=== PATIENT | male | born 1965 | race Caucasian/White ===

== ENCOUNTER 2018-12-30 08:18 | Inpatient (IN) | payer BC, OTHER ==
[2018-12-27 08:24] VITALS: BMI 21.5
[~2018-12-30 08:18] MED LIST: LIDOCAINE 1% 20 ML VIAL (10MG/ML) FOR IV START INTRADERMA PRN
[2018-12-30] MEDS ORDERED: LIDOCAINE 1% INJ 10MG/ML (20 ML MDV) ONE ×2 (08:47→10:46)
[2018-12-30] MEDS ORDERED: PROPOFOL 10 MG/ML 20 ML VIAL IV ONE (08:47)
[2018-12-30] MEDS ORDERED: GLUCAGON 1 MG/ML VIAL ONE (08:47)
[2018-12-30] MEDS ORDERED: fentaNYL (PF) 50 MCG/ML 2 ML AMP ONE ×2 (08:47→10:46)
--- NOTE | 2018-12-30 08:55 | P.GSHP ---
History of Present Illness H&P Date: 12/30/18 Chief Complaint: Screening colonoscopy This is a 53-year-old male referred from Dr. Kimberley Vieira. Patient is today for screening colonoscopy. He's never had a colonoscopy before. Past Medical History Past Medical History: Hyperlipidemia Additional Past Medical History / Comment(s): seizure with a fever as , History of Any Multi-Drug Resistant Organisms: None Reported Past Surgical History: Hernia Repair Additional Past Surgical History / Comment(s): fatty "tissue" removed from buttock, colonoscopy Past Anesthesia/Blood Transfusion Reactions: No Reported Reaction Smoking Status: Current every day smoker - Past Family History Father Family Medical History: Cancer Medications and Allergies Home Medications Medication Instructions Recorded Confirmed Type Aspirin [Adult Low Dose Aspirin EC] 81 mg PO DAILY 12/27/18 12/27/18 History Atorvastatin [Lipitor] 20 mg PO WEFR 12/27/18 12/30/18 History Cholecalciferol [Vitamin D3] 2,000 unit PO DAILY 12/27/18 12/30/18 History Ezetimibe [Zetia] 10 mg PO 1400 12/27/18 12/30/18 History Glucosam/Trav-Msm1/C/Zurdo/Bosw 1 each PO DAILY 12/27/18 12/30/18 History [Glucosamine-Chondroitin Tablet] Multivitamins, Thera [Multivitamin 1 tab PO DAILY 12/27/18 12/27/18 History (formulary)] Turmeric Root Extract [Turmeric] 500 mg PO DAILY 12/27/18 12/30/18 History Ubidecarenone [Co Q-10] 200 mg PO DAILY 12/27/18 12/30/18 History Allergies Allergy/AdvReac Type Severity Reaction Status Date / Time No Known Allergies Allergy Verified 12/27/18 08:12 Surgical - Exam Vital Signs Temp Pulse Resp BP Pulse Ox 100.6 F H 102 H 16 122/74 94 L 12/30/18 08:39 12/30/18 08:39 12/30/18 08:39 12/30/18 08:39 12/30/18 08:39 - General well developed, well nourished, no distress - Eyes PERRL - ENT normal pinna - Neck no masses - Respiratory normal expansion - Cardiovascular Rhythm: regular - Abdomen Abdomen: soft, non tender Assessment and Plan Assessment: We'll perform screening colonoscopy.
--- NOTE | 2018-12-30 09:11 | P.OP ---
Date of Procedure: 12/30/18 Preoperative Diagnosis: Screening colonoscopy Postoperative Diagnosis: Colonic perforation Procedure(s) Performed: Colonoscopy Anesthesia: MAC Surgeon: Yon Laguna Pathology: none sent Condition: stable Disposition: PACU Description of Procedure: The patient's placed on the endoscopy table in the lateral position. He received IV sedation. Digital rectal exam was performed which revealed no abnormalities. The prostate was symmetric without nodules. The flexible colonoscope was then placed patient anus and passed throughout the colon. In the scope was advanced through the sigmoid colon. There was some spasm of the sigmoid colon. Glucagon was given. The scope was then advanced. There was a peculiar appearance on the visual examination which appeared to be intramural fat. At this point the scope was withdrawn. There is evidence of a sigmoid colon perforation. Scope was then withdrawn for patient. Patient was prepped for diagnostic laparoscopy possible laparotomy and repair of sigmoid colon.
[2018-12-30] MEDS ORDERED: HEPARIN SODIUM,PORCINE 5,000 UNIT/ML 1 ML VIAL SQ STA (09:26)
[2018-12-30] MEDS: LACTATED RINGERS 1,000 ML IV SCH ×2 (09:33→10:46)
[2018-12-30] MEDS ORDERED: ONDANSETRON 4 MG/2 ML VIAL IVP ONE (09:46)
[2018-12-30] MEDS ORDERED: DEXAMETHASONE SOD PHOSPHATE 10 MG/ML 1 ML VIAL IV ONE (09:46)
[2018-12-30] MEDS ORDERED: HYDROmorphone 1 MG/ML 1 ML SYRINGE IVP ONE (09:56)
[2018-12-30] MEDS: ceFAZolin IN SWFI 2 GM/20 ML SYRINGE IVP ONE ×2 (09:56→14:04)
[2018-12-30 10:09] LABS: Basophils % (A) 0 %; Eosinophils # (A) 0.1 k/uL (0-0.7); Eosinophils % (A) 1 %; HCT 45.3 % (39.0-53.0); HGB 14.9 gm/dL (13.0-17.5); Lymphocytes # (A) 0.7 k/uL (1.0-4.8); Lymphocytes % (A) 9 %; MCH 32.2 pg (25.0-35.0); MCHC 32.9 g/dL (31.0-37.0); MCV 97.7 fL (80.0-100.0); Monocytes # (A) 0.4 k/uL (0-1.0); Monocytes % (A) 6 %; Neutrophils # (A) 6.2 k/uL (1.3-7.7); Neutrophils % (A) 83 %; Platelet Count 200 k/uL (150-450); RBC 4.63 m/uL (4.30-5.90); RDW 12.6 % (11.5-15.5); WBC 7.5 k/uL (3.8-10.6)
[2018-12-30 10:16] LABS: Albumin 3.5 g/dL (3.5-5.0); Calcium 8.8 mg/dL (8.4-10.2); Potassium 4.3 mmol/L (3.5-5.1); Total Bilirubin 0.4 mg/dL (0.2-1.3); Total Protein 6.4 g/dL (6.3-8.2)
[2018-12-30] MEDS: MIDAZOLAM 2 MG/2 ML VIAL IVP ONE ×2 (10:30→10:34)
[2018-12-30] MEDS ORDERED: NEOSTIGMINE 1 MG/ML 10 ML VIAL ONE (10:46)
[2018-12-30] MEDS ORDERED: KETOROLAC 30 MG/ML 1 ML VIAL ONE (10:46)
[2018-12-30] MEDS ORDERED: GLYCOPYRROLATE 0.2 MG/ML 2 ML VIAL ONE (10:46)
[2018-12-30] MEDS ORDERED: SUCCINYLCHOLINE CHLORIDE 100 MG/5 ML SYR IV ONE (10:46)
[2018-12-30] MEDS ORDERED: ROCURONIUM BROMIDE 10 MG/ML 10 ML VIAL IV ONE (10:46)
[2018-12-30] MEDS ORDERED: LACTATED RINGERS 1,000 ML IV ONE ×3 (10:51→12:51)
[2018-12-30] MEDS ORDERED: CLINDAMYCIN 150 MG/ML 4 ML VIAL IVPB ONE (11:24)
[2018-12-30] MEDS ORDERED: ONDANSETRON 4 MG/2 ML VIAL IVP PRN (12:07)
[2018-12-30] MEDS ORDERED: NALOXONE 0.4 MG/ML 1 ML VIAL IV PRN (12:07)
--- NOTE | 2018-12-30 12:07 | P.OP ---
Date of Procedure: 12/30/18 Preoperative Diagnosis: Colon perforation Postoperative Diagnosis: Sigmoid colon perforation Procedure(s) Performed: Laparoscopic colorrhaphy Anesthesia: CODIE Surgeon: Yon Laguna Estimated Blood Loss (ml): 5 Pathology: none sent Condition: stable Disposition: PACU Indications for Procedure: This a 53-year-old male who underwent screening colonoscopy the same. Patient was noted to have a colon perforation on colonoscopy. Description of Procedure: The patient's placed on the operative table in the supine position. He received IV and then general anesthesia. His abdomen was prepped and draped usual sterile fashion. The skin incision sites were anesthetized 1% local Xylocaine. Using a 15 blade the skin was incised at the umbilicus and then using a [place] the fascia was grasped and then the Veress needles placed into the peritoneal cavity. Position of the Veress needle was confirmed with positive drop test. The abdomen was then insufflated. Next a 5 mm trochars placed into the perineal cavity. The abdomen was insufflated and then the laparoscope was placed in the pleural cavity. The patient's placed in Trendelenburg position. The sigmoid colon was visualized. There were adhesions to the sigmoid colon on the lateral abdominal wall. At this area there is noted to be a colonic perforation. There was no significant spill of enteric contents. At this point a 8 mm trochars placed in the midline suprapubic position and then a another 5 mm trocar was placed in the right upper quadrant. The colon was repaired using 2-0 Ethibond suture and the tied knot device. Once the floor of the was performed. Omentum was placed over top of the repair and secured with 2-0 Ethibond suture. The abdomen was irrigated with 2 L of normal saline. There was no significant spill of enteric contents. The trochars withdrawn. The skin was closed with interrupted 3-0 Monocryl suture. Dermabond was applied. Patient sent to recovery in stable condition.
[2018-12-30 12:39] LABS: Amorphous Sediment,Urine Few /hpf; Appearance,Urine Turbid (Clear); Bilirubin,Urine Negative (Negative); Blood,Urine Negative (Negative); Color,Urine Yellow; Glucose,Urine (UA) Negative (Negative); Ketones,Urine 1+ (Negative); Leukocyte Esterase,Urine Negative (Negative); Mucus,Urine Few /hpf; Nitrite,Urine Negative (Negative); PH, Urine 5.5 (5.0-8.0); Protein,Urine 1+ (Negative); RBC,Urine 5 /hpf (0-5); Specific Gravity,Urine 1.028 (1.001-1.035); Squamous Epithelial Cell,Urine 1 /hpf (0-4); Urobilinogen,Urine <2.0 mg/dL (<2.0)
[2018-12-30] MEDS ORDERED: ACETAMINOPHEN IV (For NPO) 1,000 MG in EMPTY BAG 1 BAG IVPB ONE (13:30)
[2018-12-30] MEDS: LACTATED RINGERS 1,000 ML IV ONE (14:43)
[2018-12-30] MEDS: KETOROLAC 30 MG/ML 1 ML VIAL IVP SCH ×2 (15:00→18:11)
--- NOTE | 2018-12-30 15:43 | P.CONS ---
History of Present Illness - Reason for Consult Consult date: 12/30/18 medical management Requesting physician: Yon Laguna - History of Present Illness This is a 53-year-old male patient of Dr. Vieira. Patient presented the same for an elective screening colonoscopy with Dr. Laguna. patient was noted to have perforated colon on colonoscopy. Patient was then taken for laparotomy repair of colon perforation with Dr. Laguna. patient does have a past medical history of hyperlipidemia and current smoker. Patient does report he's had low-grade fevers for the past couple days. Patient denies any other symptoms. Patient does have cough which he reports that his chronic. patient did come back positive for influenza A. patient's heart rate also tachycardic low 100s. Patient ordered for cardiac telemetry monitoring. EKG ordered. Patient currently maintained on Zosyn for IV antibiotics. Dr. Uribe has been consulted for infectious disease.at this time abdomen is soft incision clean dry and intact. Patient denies chest pain or shortness breath. Patient denies nausea vomiting or diarrhea. Patient denies any urinary burning or frequency. Review of Systems please refer to HPI otherwise unremarkable Past Medical History Past Medical History: Hyperlipidemia Additional Past Medical History / Comment(s): seizure with a fever as , History of Any Multi-Drug Resistant Organisms: None Reported Past Surgical History: Hernia Repair Additional Past Surgical History / Comment(s): fatty "tissue" removed from buttock, colonoscopy Past Anesthesia/Blood Transfusion Reactions: No Reported Reaction Smoking Status: Current every day smoker - Past Family History Father Family Medical History: Cancer Medications and Allergies Home Medications Medication Instructions Recorded Confirmed Type Aspirin [Adult Low Dose Aspirin EC] 81 mg PO DAILY 12/27/18 12/27/18 History Atorvastatin [Lipitor] 20 mg PO WEFR 12/27/18 12/30/18 History Cholecalciferol [Vitamin D3] 2,000 unit PO DAILY 12/27/18 12/30/18 History Ezetimibe [Zetia] 10 mg PO 1400 12/27/18 12/30/18 History Glucosam/Trav-Msm1/C/Zurdo/Bosw 1 each PO DAILY 12/27/18 12/30/18 History [Glucosamine-Chondroitin Tablet] Multivitamins, Thera [Multivitamin 1 tab PO DAILY 12/27/18 12/27/18 History (formulary)] Turmeric Root Extract [Turmeric] 500 mg PO DAILY 12/27/18 12/30/18 History Ubidecarenone [Co Q-10] 200 mg PO DAILY 12/27/18 12/30/18 History Allergies Allergy/AdvReac Type Severity Reaction Status Date / Time No Known Allergies Allergy Verified 12/27/18 08:12 Physical Exam Vitals: Vital Signs Temp Pulse Resp BP Pulse Ox 12/30/18 13:00 105 H 18 101/59 92 L 12/30/18 12:45 107 H 18 103/62 92 L 12/30/18 12:30 113 H 14 95/55 92 L 12/30/18 12:15 111 H 14 156/67 98 12/30/18 12:11 100.1 F H 138 H 16 185/95 93 L 12/30/18 10:05 89 16 104/67 97 12/30/18 09:55 100.4 F H 92 16 95/62 93 L 12/30/18 09:30 71 18 105/68 94 L 12/30/18 09:14 76 16 102/65 97 12/30/18 08:39 100.6 F H 102 H 16 122/74 94 L Intake and Output 12/30/18 12/30/18 12/30/18 06:59 14:59 22:59 Intake Total 2100 Output Total 128 Balance 1972 Intake: IV 2100 Output: Urine 125 Estimated Blood Loss 3 Head normocephalic Neck supple Lungs diminished bilaterally Heart regular rate and rhythm S1-S2, no rub or gallop Abdomen is soft nontender nondistended. hypoactive bowel sounds. Incisions clean during intact Extremities no edema Neuro alert and orientated to 3 Results CBC & Chem 7: 12/30/18 09:47 12/30/18 09:47 Labs: Abnormal Lab Results - Last 24 Hours (Table) 12/30/18 12/30/18 12/30/18 Range/Units 09:47 09:47 12:06 Lymphocytes # 0.7 L (1.0-4.8) k/uL Creatinine 1.31 H (0.66-1.25) mg/dL Glucose 123 H (74-99) mg/dL Urine Protein 1+ H (Negative) Urine Ketones 1+ H (Negative) Amorphous Sediment Few H (None) /hpf Urine Mucus Few H (None) /hpf Influenza Type A RNA (Not Detectd) 12/30/18 Range/Units 14:55 Lymphocytes # (1.0-4.8) k/uL Creatinine (0.66-1.25) mg/dL Glucose (74-99) mg/dL Urine Protein (Negative) Urine Ketones (Negative) Amorphous Sediment (None) /hpf Urine Mucus (None) /hpf Influenza Type A RNA Detected H (Not Detectd) Assessment and Plan Assessment: 1. Status post laparoscopic colon perforation post colonoscopy with Dr. Laguna. Patient is currently nothing by mouth. 2. Influenza a. Infectious disease has been consulted. Chest x-ray has been ordered to rule out pneumonia patient has been febrile. Patient currently on Zosyn 3. Nicotine dependence. patient educated greater than 3 minutes cessation 4. History of hyperlipidemia. home medications resumed GI prophylaxis Pepcid. DVT prophylaxis Lovenox Thank you for this consultation we'll continue to follow patient closely throughout stay Time with Patient: Greater than 30 (Greater than 60% of the total time spent in counseling and coordination of care. I performed an examination of the patient and discussed their management with the Nurse Practitioner. I have reviewed the Nurse Practitioner's notes and agree with the documented findings and plan of care)
[2018-12-30] MEDS: PIPERACILLIN-TAZOBACTAM 3.375 GM in SODIUM CHLORIDE 0.9% 100 ML IVPB SCH (18:11)
--- NOTE | 2018-12-30 18:57 | XR ---
EXAMINATION TYPE: XR chest 2V DATE OF EXAM: 12/30/2018 COMPARISON: NONE HISTORY: Cough TECHNIQUE: Frontal and lateral views of the chest are obtained. FINDINGS: Heart and mediastinum are normal. There is coarsening of the lung markings. There is small pneumoperitoneum. There is no pleural effusion. There is some linear density in the lower lung field s. IMPRESSION: Interstitial pulmonary infiltrates and atelectasis. No heart failure. Normal heart. There is pneumoperitoneum. This patient apparently had abdominal surgery today to account for this.
[2018-12-30] MEDS ORDERED: LACTATED RINGERS 1,000 ML IV SCH (20:00)
[2018-12-30] MEDS: OSELTAMIVIR 75 MG CAP PO SCH (20:51)
[2018-12-30] MEDS: FAMOTIDINE 20 MG TAB PO SCH (20:51)
[2018-12-30] MEDS: DOCUSATE 100 MG CAP PO SCH (20:51)
[2018-12-31] MEDS: PIPERACILLIN-TAZOBACTAM 3.375 GM in SODIUM CHLORIDE 0.9% 100 ML IVPB SCH ×4 (00:13→23:12)
[2018-12-31] MEDS: KETOROLAC 30 MG/ML 1 ML VIAL IVP SCH ×5 (00:13→23:12)
[2018-12-31] MEDS: ACETAMINOPHEN TAB 325 MG TAB PO PRN (05:37)
--- NOTE | 2018-12-31 06:53 | CONS ---
CONSULTATION DATE OF SERVICE: 12/30/2018 REASON FOR CONSULTATION: Fever and colonic perforation. HISTORY OF PRESENT ILLNESS: The patient is a 53-year-old male presenting to the ER for elective screening colonoscopy. The patient did have semi perf. Subsequently the patient was taken to the OR and the patient did have a laparoscopic colorrhaphy done by Dr. Laguna. The patient subsequently has been admitted to the hospital. Infectious Disease was consulted for patient having a fever and colon perforation. The patient has mentioned that he did have a fever over the weekend and has been running a fever 100 to 101 degrees Fahrenheit. The patient has been complaining of some sore throat and runny nose. He did have some cough, which is mild to moderate, denies not bringing up any sputum. The patient denies having any chest pain, shortness of breath though. The patient is currently having abdominal pain, more of a dull aching lower abdominal intensity 3 to 4 out of 10, and no radiation. No nausea, no vomiting. Has not passed any gas. The patient has been started on Zosyn and admitted to the hospital. Infectious Disease was consulted for further recommendation regarding antibiotic therapy. REVIEW OF SYSTEMS: CONSTITUTIONAL: Positive for weakness along with the fever. EYES: No complaint. ENT: As per HPI. RESPIRATORY: As per HPI. CARDIOVASCULAR: No complaint. GENITOURINARY: No complaint. GASTROINTESTINAL: As per HPI. MUSCULOSKELETAL: No complaint. INTEGUMENTARY: No complaint. PSYCHOLOGICAL: No complaint. ENDOCRINE: No complaint. NEUROLOGIC: No complaint. PAST MEDICAL HISTORY: Hyperlipidemia, febrile seizure as an . PAST SURGICAL HISTORY: Hernia repair and fatty tissue removed from buttock, colonoscopy. SOCIAL HISTORY: The patient is currently an every day smoker, smokes about a pack a day. Denies drinking or drug use. FAMILY HISTORY: Father history of cancer. ALLERGIES: No known drug allergies. MEDICATIONS: Medications include the patient is currently on Tylenol, [place], Lipitor, Colace, Lovenox, Zetia, Pepcid, Dilaudid, Toradol, lactated Ringer, Reglan, Narcan, nicotine patch, Zofran, Tamiflu, and Zosyn 3.375 grams q.8 hours. PHYSICAL EXAMINATION: On examination, blood pressure is 101/59 with a pulse of 105, temperature of 98.9, T- max 100.5. He is 92% on 2 L nasal cannula. General description is a middle-aged male lying in bed in no distress. No tachypnea or accessory muscle of respiration use. HEENT EXAMINATION: No pallor or scleral icterus. Oral mucous membrane is dry. No pharyngeal erythema or thrush. NECK: Trachea central. No thyromegaly. LUNGS: Unlabored breathing, some coarse breath sounds in the bases. No wheeze. HEART: S1, S2. Tachycardia. ABDOMEN: Soft, slightly tender. No guarding. No rigidity. No organomegaly. EXTREMITIES: No edema of feet. SKIN EXAMINATION: No rash or mass palpable. NEUROLOGICAL: Patient is awake, alert, oriented x3. Mood and affect normal. LABS: Hemoglobin is 14.9 with white count 7.5. BUN of 12, creatinine 1.31. Electrolytes are normal. Liver enzymes are normal. UA has been negative. Influenza A PCR came back positive. The patient did have a chest x-ray completed, which did show interstitial pulmonary infiltrates and atelectasis. No heart failure. DIAGNOSTIC IMPRESSION AND PLAN: 1. Patient with a fever and this patient's fever has been going on since the weekend with symptom likely secondary acute influenza as well as component of pneumonia possible community acquired. 2. Patient who did have a colon perforation with concern for possible secondary peritonitis likely gram negative both aerobes and anaerobes. PLAN: 1. We will try to obtain sputum for Gram stain, culture and sensitivity. 2. Tamiflu 75 mg p.o. twice a day for 5 days. 3. Zosyn 3.375 grams q.8, should cover than pneumonia as well as abdominal pathogen. 4. We will follow on clinical condition and cultures to further adjust medication if needed. Thank you for this consultation. Will follow this patient along with you. MMODL / IJN: [id number] /
[2018-12-31] MEDS: LACTATED RINGERS 1,000 ML IV ONE (08:19)
[2018-12-31] MEDS: NICOTINE 14MG/24HR PATCH TRANSDERM SCH ×2 (08:20→08:22)
[2018-12-31] MEDS: ENOXAPARIN 40 MG/0.4 ML SYRINGE SQ SCH (08:20)
[2018-12-31] MEDS: FAMOTIDINE 20 MG TAB PO SCH ×2 (08:20→20:07)
[2018-12-31] MEDS: DOCUSATE 100 MG CAP PO SCH ×2 (08:20→20:07)
[2018-12-31 08:51] LABS: Basophils % (A) 0 %; Eosinophils % (A) 0 %; HCT 41.6 % (39.0-53.0); HGB 14.3 gm/dL (13.0-17.5); Lymphocytes # (A) 0.7 k/uL (1.0-4.8); Lymphocytes % (A) 7 %; MCH 33.8 pg (25.0-35.0); MCHC 34.5 g/dL (31.0-37.0); MCV 98.2 fL (80.0-100.0); Mean Platelet Volume 7.9; Monocytes # (A) 0.3 k/uL (0-1.0); Monocytes % (A) 2 %; Neutrophils # (A) 10.2 k/uL (1.3-7.7); Neutrophils % (A) 90 %; Platelet Count 144 k/uL (150-450); RBC 4.23 m/uL (4.30-5.90); RDW 13.1 % (11.5-15.5); WBC 11.4 k/uL (3.8-10.6)
[2018-12-31 09:02] LABS: ALT 49 U/L (21-72); AST 54 U/L (17-59); Albumin 2.8 g/dL (3.5-5.0); Alkaline Phosphatase 44 U/L (38-126); Anion Gap 5 mmol/L; Blood Urea Nitrogen 15 mg/dL (9-20); Calcium 8.3 mg/dL (8.4-10.2); Carbon Dioxide 29 mmol/L (22-30); Chloride 104 mmol/L (98-107); Glucose 99 mg/dL (74-99); Potassium 4.3 mmol/L (3.5-5.1); Sodium 138 mmol/L (137-145); Total Bilirubin 0.4 mg/dL (0.2-1.3); Total Protein 5.3 g/dL (6.3-8.2)
--- NOTE | 2018-12-31 09:45 | P.PN ---
Subjective Progress Note Date: 12/31/18 CHIEF COMPLAINT: screening colonoscopy HISTORY OF PRESENT ILLNESS: 53-year-old male who underwent colonoscopy screening on 12/30/2017 with subsequent sigmoid colon perforation. He is status post laparoscopic colorrhaphy. Patient reports his pain is tolerable. Ambulating in his room. Denies passing flatus or BM. Denies nausea or vomiting. WBC 11.4. Hemoglobin 14.3. PHYSICAL EXAM: VITAL SIGNS: Currently stable. GENERAL: Well-developed in no acute distress. HEENT: No sclera icterus. Extraocular movements grossly intact. Moist buccal mucosa. Head is atraumatic, normocephalic. Hears conversational speech. No nasal drainage. NECK: Supple without lymphadenopathy. CHEST: Non-labored respirations and equal bilateral excursions. CARDIOVASCULAR: Regular rate with regular rhythm. Palpable 2+ radial pulses. ABDOMEN: Soft. Nondistended. Surgical sites clean and intact without drainage. MUSCULOSKELETAL: No clubbing, cyanosis or edema. NEUROLOGIC: No focal or lateralizing signs. Cranial nerves II through XII grossly intact. PSYCH: Appropriate affect. Alert and oriented to person, place and time. SKIN: Well perfused. Good skin turgor. ASSESSMENT: 1. Sigmoid colon perforation status post screening colonoscopy 2. S/P laparoscopic colorrhaphy 3. Leukocytosis PLAN: Patient may begin ice chips and popsicles only. ID on consult. Continue antibiotics. Monitor WBC. Increase activity as tolerated. Incentive spirometry. Nurse practitioner note has been reviewed by physician. Signing provider agrees with the documented findings, assessment, and plan of care. Objective - Vital Signs Vital signs: Vital Signs Temp 99.1 F 12/31/18 07:00 Pulse 89 12/31/18 07:00 Resp 16 12/31/18 07:00 BP 96/60 12/31/18 07:00 Pulse Ox 95 12/31/18 07:00 Intake & Output 12/30/18 12/31/18 12/31/18 18:59 06:59 18:59 Intake Total 2100 2740 Output Total 128 300 Balance 1972 2440 Intake: IV 2100 Intake, IV Titration 2500 Amount Lactated Ringers 1,000 ml 1500 @ 150 mls/hr IV .Q6H40M ONE Rx#:[id number] Lactated Ringers 1,000 ml 1000 @ 999 mls/hr IV .Q1H1M KATHY Rx#:[id number] Oral 240 Output: Urine 125 300 Estimated Blood Loss 3 Other: # Voids 200 - Labs CBC & Chem 7: 12/31/18 08:29 12/31/18 08:29 Labs: Abnormal Lab Results - Last 24 Hours (Table) 12/30/18 12/30/18 12/30/18 Range/Units 09:47 09:47 12:06 WBC (3.8-10.6) k/uL RBC (4.30-5.90) m/uL Plt Count (150-450) k/uL Neutrophils # (1.3-7.7) k/uL Lymphocytes # 0.7 L (1.0-4.8) k/uL Creatinine 1.31 H (0.66-1.25) mg/dL Glucose 123 H (74-99) mg/dL Calcium (8.4-10.2) mg/dL Total Protein (6.3-8.2) g/dL Albumin (3.5-5.0) g/dL Urine Protein 1+ H (Negative) Urine Ketones 1+ H (Negative) Amorphous Sediment Few H (None) /hpf Urine Mucus Few H (None) /hpf Influenza Type A RNA (Not Detectd) 12/30/18 12/31/18 12/31/18 Range/Units 14:55 08:29 08:29 WBC 11.4 H (3.8-10.6) k/uL RBC 4.23 L (4.30-5.90) m/uL Plt Count 144 L (150-450) k/uL Neutrophils # 10.2 H (1.3-7.7) k/uL Lymphocytes # 0.7 L (1.0-4.8) k/uL Creatinine (0.66-1.25) mg/dL Glucose (74-99) mg/dL Calcium 8.3 L (8.4-10.2) mg/dL Total Protein 5.3 L (6.3-8.2) g/dL Albumin 2.8 L (3.5-5.0) g/dL Urine Protein (Negative) Urine Ketones (Negative) Amorphous Sediment (None) /hpf Urine Mucus (None) /hpf Influenza Type A RNA Detected H (Not Detectd) Microbiology - Last 24 Hours (Table) 02/25/19 12:06 Urine Culture - Preliminary Urine,Catheterized
[2018-12-31] MEDS: OSELTAMIVIR 75 MG CAP PO SCH ×2 (10:53→20:07)
[2018-12-31] MEDS: SODIUM CHLORIDE 0.9% 1,000 ML IV SCH (10:55)
--- NOTE | 2018-12-31 13:39 | P.PN ---
Subjective Progress Note Date: 12/31/18 This is a 53-year-old male patient of Dr. Vieira. Patient presented the same for an elective screening colonoscopy with Dr. Laguna. patient was noted to have perforated colon on colonoscopy. Patient was then taken for laparotomy repair of colon perforation with Dr. Laguna. patient does have a past medical history of hyperlipidemia and current smoker. Patient does report he's had low-grade fevers for the past couple days. Patient denies any other symptoms. Patient does have cough which he reports that his chronic. patient did come back positive for influenza A. patient's heart rate also tachycardic low 100s. Patient ordered for cardiac telemetry monitoring. EKG ordered. Patient currently maintained on Zosyn for IV antibiotics. Dr. Uribe has been consulted for infectious disease.at this time abdomen is soft incision clean dry and intact. Patient denies chest pain or shortness breath. Patient denies nausea vomiting or diarrhea. Patient denies any urinary burning or frequency. On 12/31/2018 patient is alert and oriented 3 sitting up on the couch. Patient was positive for influenza A. started on Tamiflu infectious disease is following. Patient still having temps 101 this a.m. Patient did have loose bowel movement this a.m. Patient to be started on ice chips, popsicles and medication. This time patient denies chest pain or shortness breath. Patient denies nausea vomiting or diarrhea. Patient denies any urinary burning or frequency Objective - Vital Signs Vital signs: Vital Signs Temp 99.1 F 12/31/18 07:00 Pulse 89 12/31/18 07:00 Resp 16 12/31/18 07:00 BP 96/60 12/31/18 07:00 Pulse Ox 95 12/31/18 07:00 Intake & Output 12/30/18 12/31/18 12/31/18 18:59 06:59 18:59 Intake Total 2100 2740 Output Total 128 300 Balance 1972 2440 Intake: IV 2100 Intake, IV Titration 2500 Amount Lactated Ringers 1,000 ml 1500 @ 150 mls/hr IV .Q6H40M ONE Rx#:[id number] Lactated Ringers 1,000 ml 1000 @ 999 mls/hr IV .Q1H1M KATHY Rx#:[id number] Oral 240 Output: Urine 125 300 Estimated Blood Loss 3 Other: # Voids 200 - Exam Head normocephalic Neck supple Lungs diminished bilaterally Heart regular rate and rhythm S1-S2, no rub or gallop Abdomen is soft nontender nondistended. hypoactive bowel sounds. Incisions clean during intact Extremities no edema Neuro alert and orientated to 3 - Labs CBC & Chem 7: 12/31/18 08:29 12/31/18 08:29 Labs: Abnormal Lab Results - Last 24 Hours (Table) 12/30/18 12/31/18 12/31/18 Range/Units 14:55 08:29 08:29 WBC 11.4 H (3.8-10.6) k/uL RBC 4.23 L (4.30-5.90) m/uL Plt Count 144 L (150-450) k/uL Neutrophils # 10.2 H (1.3-7.7) k/uL Lymphocytes # 0.7 L (1.0-4.8) k/uL Calcium 8.3 L (8.4-10.2) mg/dL Total Protein 5.3 L (6.3-8.2) g/dL Albumin 2.8 L (3.5-5.0) g/dL Influenza Type A RNA Detected H (Not Detectd) Microbiology - Last 24 Hours (Table) 12/30/18 12:06 Urine Culture - Preliminary Urine,Catheterized Assessment and Plan Assessment: 1. Status post laparoscopic colon perforation post colonoscopy with Dr. Laguna. Patient is currently nothing by mouth. 2. Influenza a. Infectious disease has been consulted. Chest x-ray has been ordered to rule out pneumonia patient has been febrile. Patient currently on Zosyn 3. Nicotine dependence. patient educated greater than 3 minutes cessation 4. History of hyperlipidemia. home medications resumed 5. Influenza A possible pneumonia. Patient currently on Zosyn. Started on Tamiflu. Infectious disease following. sputum culture ordered 6. Tachycardic. EKG has been ordered. Patient also ordered for cardiac monitoring and telemetry. 7. Acute kidney injury. Creatinine elevated at 1.31 we'll continue to monitor. Abdomen improving to 1.05 GI prophylaxis Pepcid. DVT prophylaxis Lovenox Thank you for this consultation we'll continue to follow patient closely throughout stay
[2018-12-31] MEDS: EZETIMIBE 10 MG TAB PO SCH (15:28)
[2019-01-01] MEDS: SODIUM CHLORIDE 0.9% 1,000 ML IV SCH (00:08)
[2019-01-01] MEDS: LACTATED RINGERS 1,000 ML IV SCH (03:45)
--- NOTE | 2019-01-01 05:08 | PN ---
PROGRESS NOTE DATE OF SERVICE: 12/31/2018 REASON FOR FOLLOWUP: 1. Acute influenza. 2. Possible pneumonia. 3. Secondary peritonitis. INTERVAL HISTORY: The patient did spike a fever last night of 100.8 degrees to 101 degrees Fahrenheit this morning. The patient is afebrile since then. The patient is breathing comfortably. Denies having any significant chest pain or shortness of breath. He did have some cough. Abdominal pain slightly decreased intensity. No nausea, no vomiting and did have bowel movement. PHYSICAL EXAMINATION: On examination, blood pressure 108/71 with a pulse of 87, temperature 98.1. He is 92% on 2 L nasal cannula. General description is a middle aged male up in the chair in no distress. RESPIRATORY SYSTEM: Unlabored breathing with decreased breath sounds at bases. No wheeze. HEART: S1, S2. Regular rate and rhythm. ABDOMEN: Soft, no tenderness. No guarding or rigidity. EXTREMITIES: No edema of the feet. LABS: Hemoglobin is 14.3 with white count 11.4, BUN of 15, creatinine 1.05. DIAGNOSTIC IMPRESSION AND PLAN: Patient with fever which is likely multifactorial in this patient who did have acute influenza versus possible bacterial pneumonia and secondary peritonitis from a perforated colon. Status post surgical repair of the same. The patient is currently covered with Tamiflu and Zosyn that will be continued for now. Will try to obtain a sputum to narrow antibiotics. Continue supportive care. MMODL / MOUNIKAN: [id number] /
[2019-01-01] MEDS: KETOROLAC 30 MG/ML 1 ML VIAL IVP SCH (05:32)
[2019-01-01 08:58] LABS: Basophils % (A) 0 %; Eosinophils % (A) 0 %; HCT 40.6 % (39.0-53.0); HGB 12.9 gm/dL (13.0-17.5); Lymphocytes # (A) 0.8 k/uL (1.0-4.8); Lymphocytes % (A) 8 %; MCH 31.7 pg (25.0-35.0); MCHC 31.8 g/dL (31.0-37.0); MCV 99.6 fL (80.0-100.0); Mean Platelet Volume 7.4; Monocytes # (A) 0.2 k/uL (0-1.0); Monocytes % (A) 2 %; Neutrophils # (A) 8.1 k/uL (1.3-7.7); Neutrophils % (A) 89 %; Platelet Count 150 k/uL (150-450); RBC 4.08 m/uL (4.30-5.90); RDW 12.8 % (11.5-15.5); WBC 9.1 k/uL (3.8-10.6)
[2019-01-01] MEDS: PIPERACILLIN-TAZOBACTAM 3.375 GM in SODIUM CHLORIDE 0.9% 100 ML IVPB SCH ×2 (09:08→18:18)
[2019-01-01] MEDS: ENOXAPARIN 40 MG/0.4 ML SYRINGE SQ SCH (09:09)
[2019-01-01] MEDS: DOCUSATE 100 MG CAP PO SCH ×2 (09:09→20:35)
[2019-01-01] MEDS: FAMOTIDINE 20 MG TAB PO SCH ×2 (09:09→20:27)
[2019-01-01] MEDS: NICOTINE 14MG/24HR PATCH TRANSDERM SCH (09:09)
[2019-01-01] MEDS: OSELTAMIVIR 75 MG CAP PO SCH ×2 (09:10→20:35)
[2019-01-01 09:33] LABS: Anion Gap 4 mmol/L; Blood Urea Nitrogen 14 mg/dL (9-20); Calcium 8.3 mg/dL (8.4-10.2); Carbon Dioxide 28 mmol/L (22-30); Chloride 107 mmol/L (98-107); Glucose 78 mg/dL (74-99); Potassium 4.2 mmol/L (3.5-5.1); Sodium 139 mmol/L (137-145)
--- NOTE | 2019-01-01 10:20 | P.PN ---
Subjective Progress Note Date: 01/01/19 CHIEF COMPLAINT: screening colonoscopy HISTORY OF PRESENT ILLNESS: 53-year-old male who underwent colonoscopy screening on 12/30/2017 with subsequent sigmoid colon perforation. He is status post laparoscopic colorrhaphy. Patient reports abdominal pain this morning near surgical sites. He is passing flatus and having BMs. He is tolerating ice chips and popsicles. Using incentive spirometry. Ambulating independently in his room. WBC 9.1 PHYSICAL EXAM: VITAL SIGNS: Currently stable. GENERAL: Well-developed in no acute distress. HEENT: No sclera icterus. Extraocular movements grossly intact. Moist buccal mucosa. Head is atraumatic, normocephalic. Hears conversational speech. No nasal drainage. NECK: Supple without lymphadenopathy. CHEST: Non-labored respirations and equal bilateral excursions. CARDIOVASCULAR: Regular rate with regular rhythm. Palpable 2+ radial pulses. ABDOMEN: Soft. Nondistended. Surgical sites clean and intact without drainage. MUSCULOSKELETAL: No clubbing, cyanosis or edema. NEUROLOGIC: No focal or lateralizing signs. Cranial nerves II through XII grossly intact. PSYCH: Appropriate affect. Alert and oriented to person, place and time. SKIN: Well perfused. Good skin turgor. ASSESSMENT: 1. Sigmoid colon perforation status post screening colonoscopy 2. S/P laparoscopic colorrhaphy 3. Leukocytosis PLAN: Patient may begin clear liquid diet. ID on consult. Continue antibiotics. Monitor WBC. Increase activity as tolerated. Incentive spirometry. Possible discharge home tomorrow. Nurse practitioner note has been reviewed by physician. Signing provider agrees with the documented findings, assessment, and plan of care. Objective - Vital Signs Vital signs: Vital Signs Temp 100.1 F H 01/01/19 05:35 Pulse 103 H 01/01/19 00:15 Resp 17 01/01/19 00:15 BP 131/78 01/01/19 00:15 Pulse Ox 91 L 01/01/19 00:15 Intake & Output 12/31/18 01/01/19 01/01/19 18:59 06:59 18:59 Intake Total 1230 Balance 1230 Intake: Intake, IV Titration 750 Amount Sodium Chloride 0.9% 1, 750 000 ml @ 75 mls/hr IV . [id number] [facility] Rx#:[id number] Oral 480 Other: # Voids 3 3 # Bowel Movements 1 1 - Labs CBC & Chem 7: 01/01/19 08:09 01/01/19 08:09 Labs: Abnormal Lab Results - Last 24 Hours (Table) 01/01/19 01/01/19 Range/Units 08:09 08:09 RBC 4.08 L (4.30-5.90) m/uL Hgb 12.9 L (13.0-17.5) gm/dL Neutrophils # 8.1 H (1.3-7.7) k/uL Lymphocytes # 0.8 L (1.0-4.8) k/uL Calcium 8.3 L (8.4-10.2) mg/dL Microbiology - Last 24 Hours (Table) 12/30/18 12:06 Urine Culture - Final Urine,Catheterized
--- NOTE | 2019-01-01 14:48 | P.PN ---
Subjective Progress Note Date: 01/01/19 This is a 53-year-old male patient of Dr. Vieira. Patient presented the same for an elective screening colonoscopy with Dr. Laguna. patient was noted to have perforated colon on colonoscopy. Patient was then taken for laparotomy repair of colon perforation with Dr. Laguna. patient does have a past medical history of hyperlipidemia and current smoker. Patient does report he's had low-grade fevers for the past couple days. Patient denies any other symptoms. Patient does have cough which he reports that his chronic. patient did come back positive for influenza A. patient's heart rate also tachycardic low 100s. Patient ordered for cardiac telemetry monitoring. EKG ordered. Patient currently maintained on Zosyn for IV antibiotics. Dr. Uribe has been consulted for infectious disease.at this time abdomen is soft incision clean dry and intact. Patient denies chest pain or shortness breath. Patient denies nausea vomiting or diarrhea. Patient denies any urinary burning or frequency. On 12/31/2018 patient is alert and oriented 3 sitting up on the couch. Patient was positive for influenza A. started on Tamiflu infectious disease is following. Patient still having temps 101 this a.m. Patient did have loose bowel movement this a.m. Patient to be started on ice chips, popsicles and medication. This time patient denies chest pain or shortness breath. Patient denies nausea vomiting or diarrhea. Patient denies any urinary burning or frequency On 01/01/2018 patient lying oriented 3. Patient remains on Tamiflu and Zosyn. Patient is on clear liquid diet. Patient has been passing bowel movements. Patient is still having temps of 100.1. Infectious disease is following. Has been patient denies chest pain or shortness breath. Patient denies nausea vomiting or diarrhea. Patient denies any urinary burning or frequency. Patient is complaining of some abdominal discomfort with movement Objective - Vital Signs Vital signs: Vital Signs Temp 97.9 F 01/01/19 14:37 Pulse 77 01/01/19 14:37 Resp 17 01/01/19 00:15 BP 120/73 01/01/19 14:37 Pulse Ox 94 L 01/01/19 14:37 Intake & Output 12/31/18 01/01/19 01/01/19 18:59 06:59 18:59 Intake Total 1230 Balance 1230 Intake: Intake, IV Titration 750 Amount Sodium Chloride 0.9% 1, 750 000 ml @ 75 mls/hr IV . [id number] [facility] Rx#:[id number] Oral 480 Other: # Voids 3 3 # Bowel Movements 1 1 - Exam Head normocephalic Neck supple Lungs diminished bilaterally Heart regular rate and rhythm S1-S2, no rub or gallop Abdomen is soft nontender nondistended. hypoactive bowel sounds. Incisions clean during intact Extremities no edema Neuro alert and orientated to 3 - Labs CBC & Chem 7: 01/01/19 08:09 01/01/19 08:09 Labs: Abnormal Lab Results - Last 24 Hours (Table) 01/01/19 01/01/19 Range/Units 08:09 08:09 RBC 4.08 L (4.30-5.90) m/uL Hgb 12.9 L (13.0-17.5) gm/dL Neutrophils # 8.1 H (1.3-7.7) k/uL Lymphocytes # 0.8 L (1.0-4.8) k/uL Calcium 8.3 L (8.4-10.2) mg/dL Microbiology - Last 24 Hours (Table) 12/30/18 12:06 Urine Culture - Final Urine,Catheterized Assessment and Plan Assessment: 1. Status post laparoscopic colorrhapy post sigmoid colon perforation post colonoscopy with Dr. Laguna. Patient is currently postop day 2. Diet has been advanced to clear liquid diet. 2. Influenza a. Infectious disease has been consulted. Chest x-ray completed showing interstitial pulmonary infiltrates and atelectasis no heart failure. Normal. There is pneumoperitoneum. Patient currently on Zosyn 3. Nicotine dependence. patient educated greater than 3 minutes cessation 4. History of hyperlipidemia. home medications resumed 5. Influenza A possible pneumonia. Patient currently on Zosyn. Started on Tamiflu. Infectious disease following. sputum culture ordered 6. Tachycardic. EKG completed showing normal sinus rhythm and normal EKG Patient also ordered for cardiac monitoring and telemetry. 7. Acute kidney injury. Creatinine elevated at 1.31 we'll continue to monitor. Abdomen improving to 1.05 GI prophylaxis Pepcid. DVT prophylaxis Lovenox Thank you for this consultation we'll continue to follow patient closely throughout stay I performed an examination of the patient and discussed their management with the Nurse Practitioner. I have reviewed the Nurse Practitioner's notes and agree with the documented findings and plan of care
[2019-01-01] MEDS: EZETIMIBE 10 MG TAB PO SCH (18:18)
[2019-01-01] MEDS: ACETAMINOPHEN TAB 325 MG TAB PO PRN (20:27)
[2019-01-01] MEDS: ATORVASTATIN 20 MG TAB PO SCH (20:27)
--- NOTE | 2019-01-01 23:51 | PN ---
PROGRESS NOTE DATE OF SERVICE: 01/01/2019 REASON FOR FOLLOWUP: Acute influenza, possible pneumonia and secondary peritonitis. INTERVAL HISTORY: The patient has fever 100.1 to 100 degrees Fahrenheit with a fever of 101 yesterday. The patient today is breathing comfortably. Denies having any chest pain or shortness of breath. Minimal cough. He is complaining of some lower abdominal pain with no worsening, and did have bowel movement. No nausea. No vomiting. PHYSICAL EXAMINATION: Blood pressure is 111/68 with a pulse of 85, temperature 97.9. He is 95% on room air. General description is a middle-aged male up in the room in no distress. RESPIRATORY SYSTEM: Unlabored breathing with decreased breath sounds at the base. No wheeze. HEART: S1, S2. Regular rate and rhythm. ABDOMEN: Soft. Did have a small bruise in the lower abdominal area but no redness. Incision site looks clean. LABS: Hemoglobin is 12.9, white count 9.1 with BUN of 14, creatinine 1.04. Blood, urine so far negative. DIAGNOSTIC IMPRESSION AND PLAN: Patient with a fever in this patient who did have acute influenza A with a question of possible secondary pneumonia. Plan at this time is to keep the patient on Tamiflu and Zosyn and monitor his clinical course and culture closely. Continue with supportive care. NEALL / MOUNIKAN: [id number] /
[2019-01-02] MEDS: PIPERACILLIN-TAZOBACTAM 3.375 GM in SODIUM CHLORIDE 0.9% 100 ML IVPB SCH ×3 (00:40→16:15)
[2019-01-02] MEDS: LACTATED RINGERS 1,000 ML IV SCH (05:32)
[2019-01-02 08:15] LABS: Basophils % (A) 0 %; Eosinophils # (A) 0.1 k/uL (0-0.7); Eosinophils % (A) 1 %; HCT 40.9 % (39.0-53.0); HGB 13.3 gm/dL (13.0-17.5); Lymphocytes # (A) 0.9 k/uL (1.0-4.8); Lymphocytes % (A) 10 %; MCH 32.2 pg (25.0-35.0); MCHC 32.5 g/dL (31.0-37.0); MCV 99.1 fL (80.0-100.0); Mean Platelet Volume 7.1; Monocytes # (A) 0.2 k/uL (0-1.0); Monocytes % (A) 3 %; Neutrophils # (A) 8.1 k/uL (1.3-7.7); Neutrophils % (A) 86 %; Platelet Count 187 k/uL (150-450); RBC 4.12 m/uL (4.30-5.90); RDW 12.9 % (11.5-15.5); WBC 9.5 k/uL (3.8-10.6)
[2019-01-02 08:39] LABS: Anion Gap 10 mmol/L; Blood Urea Nitrogen 9 mg/dL (9-20); Calcium 8.3 mg/dL (8.4-10.2); Carbon Dioxide 26 mmol/L (22-30); Chloride 102 mmol/L (98-107); Glucose 88 mg/dL (74-99); Potassium 3.6 mmol/L (3.5-5.1); Sodium 138 mmol/L (137-145)
[2019-01-02] MEDS: FAMOTIDINE 20 MG TAB PO SCH ×2 (08:41→20:21)
[2019-01-02] MEDS: DOCUSATE 100 MG CAP PO SCH ×2 (08:41→20:21)
[2019-01-02] MEDS: ENOXAPARIN 40 MG/0.4 ML SYRINGE SQ SCH (08:41)
[2019-01-02] MEDS: HYDROcodone/APAP 5-325MG 1 EACH TAB PO PRN ×2 (08:42→16:20)
[2019-01-02] MEDS: EZETIMIBE 10 MG TAB PO SCH (08:42)
[2019-01-02] MEDS: OSELTAMIVIR 75 MG CAP PO SCH ×2 (08:42→20:21)
[2019-01-02] MEDS: NICOTINE 14MG/24HR PATCH TRANSDERM SCH ×2 (08:42→08:43)
--- NOTE | 2019-01-02 10:25 | P.PN ---
Subjective Progress Note Date: 01/02/19 CHIEF COMPLAINT: screening colonoscopy HISTORY OF PRESENT ILLNESS: 53-year-old male who underwent colonoscopy screening on 12/30/2017 with subsequent sigmoid colon perforation. He is status post laparoscopic colorrhaphy. Patient reports abdominal pain this morning near surgical sites. He is passing flatus and having BMs. Tolerating clear liquid diet. Using incentive spirometry. Ambulating independently in his room. WBC 9.5. Patient febrile overnight with a temperature of 101.5. Temperature this morning 99.6. PHYSICAL EXAM: VITAL SIGNS: Currently stable. GENERAL: Well-developed in no acute distress. HEENT: No sclera icterus. Extraocular movements grossly intact. Moist buccal mucosa. Head is atraumatic, normocephalic. Hears conversational speech. No nasal drainage. NECK: Supple without lymphadenopathy. CHEST: Non-labored respirations and equal bilateral excursions. CARDIOVASCULAR: Regular rate with regular rhythm. Palpable 2+ radial pulses. ABDOMEN: Soft. Nondistended. Surgical sites clean and intact without drainage. MUSCULOSKELETAL: No clubbing, cyanosis or edema. NEUROLOGIC: No focal or lateralizing signs. Cranial nerves II through XII grossly intact. PSYCH: Appropriate affect. Alert and oriented to person, place and time. SKIN: Well perfused. Good skin turgor. ASSESSMENT: 1. Sigmoid colon perforation status post screening colonoscopy 2. S/P laparoscopic colorrhaphy 3. Leukocytosis PLAN: May advance diet to full liquids. ID on consult. Continue antibiotics. Monitor WBC. Increase activity as tolerated. Incentive spirometry. Hold discharge today due to fevers. Nurse practitioner note has been reviewed by physician. Signing provider agrees with the documented findings, assessment, and plan of care. Objective - Vital Signs Vital signs: Vital Signs Temp 99.6 F 01/02/19 07:00 Pulse 84 01/02/19 07:00 Resp 12 01/02/19 08:39 BP 106/67 01/02/19 07:00 Pulse Ox 96 01/02/19 07:00 Intake & Output 01/01/19 01/02/19 01/02/19 18:59 06:59 18:59 Intake Total 200 240 Balance 200 240 Intake: IV 200 Piperacillin-Tazobactam 3 200 .375 gm In Sodium Chloride 0.9% 100 ml @ 25 mls/hr IVPB Q8HR [facility] Rx# :[id number] Oral 240 Other: # Voids 3 - Labs CBC & Chem 7: 01/02/19 07:40 01/02/19 07:40 Labs: Abnormal Lab Results - Last 24 Hours (Table) 01/02/19 01/02/19 Range/Units 07:40 07:40 RBC 4.12 L (4.30-5.90) m/uL Neutrophils # 8.1 H (1.3-7.7) k/uL Lymphocytes # 0.9 L (1.0-4.8) k/uL Calcium 8.3 L (8.4-10.2) mg/dL
--- NOTE | 2019-01-02 11:17 | P.PN ---
Subjective Progress Note Date: 01/02/19 This is a 53-year-old male patient of Dr. Vieira. Patient presented the same for an elective screening colonoscopy with Dr. Laguna. patient was noted to have perforated colon on colonoscopy. Patient was then taken for laparotomy repair of colon perforation with Dr. Laguna. patient does have a past medical history of hyperlipidemia and current smoker. Patient does report he's had low-grade fevers for the past couple days. Patient denies any other symptoms. Patient does have cough which he reports that his chronic. patient did come back positive for influenza A. patient's heart rate also tachycardic low 100s. Patient ordered for cardiac telemetry monitoring. EKG ordered. Patient currently maintained on Zosyn for IV antibiotics. Dr. Uribe has been consulted for infectious disease.at this time abdomen is soft incision clean dry and intact. Patient denies chest pain or shortness breath. Patient denies nausea vomiting or diarrhea. Patient denies any urinary burning or frequency. On 12/31/2018 patient is alert and oriented 3 sitting up on the couch. Patient was positive for influenza A. started on Tamiflu infectious disease is following. Patient still having temps 101 this a.m. Patient did have loose bowel movement this a.m. Patient to be started on ice chips, popsicles and medication. This time patient denies chest pain or shortness breath. Patient denies nausea vomiting or diarrhea. Patient denies any urinary burning or frequency On 01/01/2018 patient lying oriented 3. Patient remains on Tamiflu and Zosyn. Patient is on clear liquid diet. Patient has been passing bowel movements. Patient is still having temps of 100.1. Infectious disease is following. Has been patient denies chest pain or shortness breath. Patient denies nausea vomiting or diarrhea. Patient denies any urinary burning or frequency. Patient is complaining of some abdominal discomfort with movement On 01/02/2018 patient is alert and oriented 3. Patient is still having fevers. Discussed case with surgical services recommending we keep patient will more day. Patient is still having some abdominal discomfort. Currently maintained on clear liquid diet. Patient denies nausea vomiting or diarrhea. Patient denies any urinary burning or frequency. Patient denies chest pain or shortness breath. Patient did have bowel movement this a.m. Objective - Vital Signs Vital signs: Vital Signs Temp 99.6 F 01/02/19 07:00 Pulse 84 01/02/19 07:00 Resp 12 01/02/19 08:39 BP 106/67 01/02/19 07:00 Pulse Ox 96 01/02/19 07:00 Intake & Output 01/01/19 01/02/19 01/02/19 18:59 06:59 18:59 Intake Total 200 240 Balance 200 240 Intake: IV 200 Piperacillin-Tazobactam 3 200 .375 gm In Sodium Chloride 0.9% 100 ml @ 25 mls/hr IVPB Q8HR [facility] Rx# :[id number] Oral 240 Other: # Voids 3 - Exam Head normocephalic Neck supple Lungs diminished bilaterally Heart regular rate and rhythm S1-S2, no rub or gallop Abdomen is soft nontender nondistended. hypoactive bowel sounds. Incisions clean during intact Extremities no edema Neuro alert and orientated to 3 - Labs CBC & Chem 7: 01/02/19 07:40 01/02/19 07:40 Labs: Abnormal Lab Results - Last 24 Hours (Table) 01/02/19 01/02/19 Range/Units 07:40 07:40 RBC 4.12 L (4.30-5.90) m/uL Neutrophils # 8.1 H (1.3-7.7) k/uL Lymphocytes # 0.9 L (1.0-4.8) k/uL Calcium 8.3 L (8.4-10.2) mg/dL Assessment and Plan Assessment: 1. Status post laparoscopic colorrhapy post sigmoid colon perforation post colonoscopy with Dr. Laguna. Patient is currently postop day 2. Diet has been advanced to clear liquid diet. 2. Influenza a. Infectious disease has been consulted. Chest x-ray completed showing interstitial pulmonary infiltrates and atelectasis no heart failure. Normal. There is pneumoperitoneum. Patient currently on Zosyn 3. Nicotine dependence. patient educated greater than 3 minutes cessation 4. History of hyperlipidemia. home medications resumed 5. Influenza A possible pneumonia. Patient currently on Zosyn. Started on Tamiflu. Infectious disease following. sputum culture ordered 6. Tachycardic. EKG completed showing normal sinus rhythm and normal EKG Patient also ordered for cardiac monitoring and telemetry. 7. Acute kidney injury. Creatinine elevated at 1.31 we'll continue to monitor. Abdomen improving to 1.05 GI prophylaxis Pepcid. DVT prophylaxis Lovenox Thank you for this consultation we'll continue to follow patient closely throughout stay I performed an examination of the patient and discussed their management with the Nurse Practitioner. I have reviewed the Nurse Practitioner's notes and agree with the documented findings and plan of care
--- NOTE | 2019-01-02 23:10 | PN ---
PROGRESS NOTE DATE OF SERVICE: 01/02/2019. REASON FOR FOLLOW UP: 1. Acute influenza. 2. Possible pneumonia. 3. Secondary peritonitis. INTERVAL HISTORY: The patient is currently afebrile. Overall fever pattern has improved. The patient denies any chest pain. No shortness of breath or significant cough. Has been complaining of some pain in the right lower abdominal area, though no worsening. He did have some loose stool. No nausea, no vomiting. PHYSICAL EXAMINATION: Blood pressure 104/67 with a pulse of 79, temperature 98.4. He is 95% on room air. General description is a middle-aged male lying in bed in no distress. Respiratory system: Unlabored breathing. Clear to auscultation anteriorly. Heart S1, S2. Regular rate and rhythm. ABDOMEN: Soft. Lower abdominal area did have been bruised, but no redness. SKIN: No edema of the feet. Extremities: No edema of feet. LABS: Hemoglobin 13.1, normal 9.5 with a BUN of 9, creatinine 1.04. DIAGNOSTIC IMPRESSION AND PLAN: Patient with fever with a diagnosis of acute influenza A question of possible secondary bacterial pneumonia. This patient who also has a colonic status post repair and concern possible secondary peritonitis. Patient is currently covered with Zosyn, Tamiflu to continue for now. Monitor his clinical course closely. Continue supportive care. MMODL / IJN: [id number] /
[2019-01-03] MEDS: PIPERACILLIN-TAZOBACTAM 3.375 GM in SODIUM CHLORIDE 0.9% 100 ML IVPB SCH ×3 (00:45→16:47)
[2019-01-03] MEDS: HYDROcodone/APAP 5-325MG 1 EACH TAB PO PRN (00:48)
[2019-01-03] MEDS: LACTATED RINGERS 1,000 ML IV SCH ×2 (05:00→15:18)
[2019-01-03] MEDS: FAMOTIDINE 20 MG TAB PO SCH ×2 (07:40→20:07)
[2019-01-03] MEDS: NICOTINE 14MG/24HR PATCH TRANSDERM SCH (07:40)
[2019-01-03] MEDS: DOCUSATE 100 MG CAP PO SCH ×2 (07:40→20:11)
[2019-01-03] MEDS: ENOXAPARIN 40 MG/0.4 ML SYRINGE SQ SCH (07:40)
[2019-01-03] MEDS: OSELTAMIVIR 75 MG CAP PO SCH ×2 (07:41→20:07)
[2019-01-03 08:39] LABS: Basophils % (A) 0 %; Eosinophils # (A) 0.1 k/uL (0-0.7); Eosinophils % (A) 1 %; HCT 42.1 % (39.0-53.0); HGB 13.8 gm/dL (13.0-17.5); Lymphocytes # (A) 0.9 k/uL (1.0-4.8); Lymphocytes % (A) 9 %; MCH 32.1 pg (25.0-35.0); MCHC 32.8 g/dL (31.0-37.0); Mean Platelet Volume 7.1; Monocytes # (A) 0.5 k/uL (0-1.0); Monocytes % (A) 4 %; Neutrophils # (A) 9.4 k/uL (1.3-7.7); Neutrophils % (A) 86 %; Platelet Count 231 k/uL (150-450); RBC 4.29 m/uL (4.30-5.90)
[2019-01-03 09:00] LABS: Anion Gap 9 mmol/L; Blood Urea Nitrogen 9 mg/dL (9-20); Calcium 8.6 mg/dL (8.4-10.2); Carbon Dioxide 27 mmol/L (22-30); Chloride 102 mmol/L (98-107); Glucose 130 mg/dL (74-99); Potassium 3.7 mmol/L (3.5-5.1); Sodium 138 mmol/L (137-145)
--- NOTE | 2019-01-03 11:26 | P.PN ---
Progress Note - Text Progress Note Date: 01/03/19 The patient states he has had improvement in his abdominal pain. Resting in bed his pain is a 0 out of 10. He has had some pain on ambulation. His scrotum dominants. His white count has crept up to 11.5. On exam is lesser stable. His abdomen soft. There is some mild incisional tenderness. Patient will undergo computed tomography scan the abdomen to give out for possible postoperative abscess.
--- NOTE | 2019-01-03 11:33 | P.PN ---
Subjective Progress Note Date: 01/03/19 This is a 53-year-old male patient of Dr. Vieira. Patient presented the same for an elective screening colonoscopy with Dr. Laguna. patient was noted to have perforated colon on colonoscopy. Patient was then taken for laparotomy repair of colon perforation with Dr. Laguna. patient does have a past medical history of hyperlipidemia and current smoker. Patient does report he's had low-grade fevers for the past couple days. Patient denies any other symptoms. Patient does have cough which he reports that his chronic. patient did come back positive for influenza A. patient's heart rate also tachycardic low 100s. Patient ordered for cardiac telemetry monitoring. EKG ordered. Patient currently maintained on Zosyn for IV antibiotics. Dr. Uribe has been consulted for infectious disease.at this time abdomen is soft incision clean dry and intact. Patient denies chest pain or shortness breath. Patient denies nausea vomiting or diarrhea. Patient denies any urinary burning or frequency. On 12/31/2018 patient is alert and oriented 3 sitting up on the couch. Patient was positive for influenza A. started on Tamiflu infectious disease is following. Patient still having temps 101 this a.m. Patient did have loose bowel movement this a.m. Patient to be started on ice chips, popsicles and medication. This time patient denies chest pain or shortness breath. Patient denies nausea vomiting or diarrhea. Patient denies any urinary burning or frequency On 01/01/2018 patient lying oriented 3. Patient remains on Tamiflu and Zosyn. Patient is on clear liquid diet. Patient has been passing bowel movements. Patient is still having temps of 100.1. Infectious disease is following. Has been patient denies chest pain or shortness breath. Patient denies nausea vomiting or diarrhea. Patient denies any urinary burning or frequency. Patient is complaining of some abdominal discomfort with movement On 01/02/2018 patient is alert and oriented 3. Patient is still having fevers. Discussed case with surgical services recommending we keep patient will more day. Patient is still having some abdominal discomfort. Currently maintained on clear liquid diet. Patient denies nausea vomiting or diarrhea. Patient denies any urinary burning or frequency. Patient denies chest pain or shortness breath. Patient did have bowel movement this a.m. On 01/03/2018 patient is alert and oriented 3. Patient has been having low- grade temps 99.7. Throughout the night. Patient states he feels ready to go home. Patient denies nausea vomiting or diarrhea. Patient is still having some abdominal discomfort. CT of abdomen and pelvis has been ordered per services. Infectious disease is following. Patient remains on Zosyn and Tamiflu. Objective - Vital Signs Vital signs: Vital Signs Temp 98.3 F 01/03/19 07:17 Pulse 92 01/03/19 07:17 Resp 18 01/03/19 07:30 BP 129/79 01/03/19 07:17 Pulse Ox 91 L 01/03/19 07:17 Intake & Output 01/02/19 01/03/19 01/03/19 18:59 06:59 18:59 Intake Total 260 260 Balance 260 260 Intake: IV 100 100 Piperacillin-Tazobactam 3 100 100 .375 gm In Sodium Chloride 0.9% 100 ml @ 25 mls/hr IVPB Q8HR [facility] Rx# :[id number] Intake, IV Titration 160 160 Amount Lactated Ringers 1,000 ml 160 160 @ 20 mls/hr IV .Q24H [facility] Rx#:[id number] Other: # Voids 3 2 - Exam Head normocephalic Neck supple Lungs diminished bilaterally Heart regular rate and rhythm S1-S2, no rub or gallop Abdomen is soft nontender nondistended. hypoactive bowel sounds. Incisions clean during intact Extremities no edema Neuro alert and orientated to 3 - Labs CBC & Chem 7: 01/03/19 07:54 01/03/19 07:54 Labs: Abnormal Lab Results - Last 24 Hours (Table) 01/03/19 01/03/19 Range/Units 07:54 07:54 WBC 11.0 H (3.8-10.6) k/uL RBC 4.29 L (4.30-5.90) m/uL Neutrophils # 9.4 H (1.3-7.7) k/uL Lymphocytes # 0.9 L (1.0-4.8) k/uL Glucose 130 H (74-99) mg/dL Assessment and Plan Assessment: 1. Status post laparoscopic colorrhapy post sigmoid colon perforation post colonoscopy with Dr. Laguna. Patient is currently postop day 3. Diet has been advanced to clear liquid diet. Computed tomography scan of abdomen and pelvis has been ordered to rule out abscess per surgical services 2. Nicotine dependence. patient educated greater than 3 minutes cessation 3. History of hyperlipidemia. home medications resumed 4. Influenza A possible pneumonia. Patient currently on Zosyn. Started on Tamiflu. X-ray completed showing interstitial pulmonary infiltrates and atelectasis no heart failure Infectious disease following. sputum culture ordered 5. Tachycardic. EKG completed showing normal sinus rhythm and normal EKG Patient also ordered for cardiac monitoring and telemetry. Resolved 6. Acute kidney injury. Creatinine elevated at 1.31 we'll continue to monitor. Abdomen improving to 1.05. Resolved GI prophylaxis Pepcid. DVT prophylaxis Lovenox Thank you for this consultation we'll continue to follow patient closely throughout stay I performed an examination of the patient and discussed their management with the Nurse Practitioner. I have reviewed the Nurse Practitioner's notes and agree with the documented findings and plan of care
[2019-01-03] MEDS: IOPAMIDOL-300 CONTRAST 30 ML VIAL (ORAL USE) PO PRN ×2 (12:05→13:08)
--- NOTE | 2019-01-03 14:04 | CT ---
EXAMINATION TYPE: CT abdomen pelvis w con DATE OF EXAM: 01/03/2019 COMPARISON: Pain HISTORY: Post OP colon repair per patient. CT DLP: 713.4 mGycm Automated exposure control for dose reduction was used. CONTRAST: CT scan of the abdomen pelvis is performed with IV Contrast, patient injected with 100 mL of Isovue 3 00. FINDINGS- LUNG BASES-bilateral lower lobe consolidation and changes of COPD. Correlate for pneumonia versus ate lectasis. Tiny right-sided pleural effusion.. There are numerous dilated small bowel loops. There is evidence of previous surgery involving the sig moid colon. There are few scattered small bubbles of free air. Case discussed with the ER physician. This could be postoperative although a leak is not excluded. There does appear to be inflammatory dolly nge and wall thickening involving the sigmoid colon correlate clinically. Small amount of ascites in the paracolic gutter which is somewhat hyperdense and may contain a hemorrhagic component. Within the pelvis there is a 8 x 4 cm fluid collection anterior to the rectum and posterior to the pr ostate extending into the right pelvis. This is nonspecific. Abscess not excluded. 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 There is air within the bladder although the patient has recently had a Sánchez catheter correlate clin ically. Atherosclerotic change of the aorta with no evidence of aneurysm. The appendix appears to be of james l caliber. There is diffuse inflammatory changes within the mesentery. IMPRESSION- 1. Numerous dilated and fluid-filled small bowel loops with evidence of ascites. May be on the basis of a postoperative ileus although an enteritis is not excluded. 2. There is surgical change of the sigmoid colon with diffuse wall thickening involving the sigmoid c olon and portions of the left colon. There are a few adjacent air bubbles which may be postoperative although a anastomotic leak from the sigmoid colon is also in the differential diagnosis. 3. Large pelvic fluid collection may be postoperative. Developing abscess not excluded correlate clin ically. Case discussed with referring clinician during the time of dictation. 4. Diffuse attenuation within the mesentery mesenteritis or peritonitis in the differential diagnosis .
--- NOTE | 2019-01-03 14:42 | P.PN ---
Progress Note - Text Progress Note Date: 01/03/19 The patient has complaints of right-sided abdominal pain. His CAT scan was reviewed with Dr. Bush. Patient has a pelvic fluid collection that may be a possible abscess. There was a few scattered foci of air in the abdomen. The patient has had low-grade fevers. He will be taken to the operating room for exploratory laparotomy and drainage of possible pelvic abscess. I've also discussed with him that if there is evidence of a colonic perforation he will have a colostomy.
[2019-01-03] MEDS ORDERED: HEPARIN SODIUM,PORCINE 5,000 UNIT/ML 1 ML VIAL SQ ONE (15:43)
[2019-01-03] MEDS ORDERED: MIDAZOLAM 2 MG/2 ML VIAL ONE (16:09)
[2019-01-03] MEDS ORDERED: ROCURONIUM BROMIDE 10 MG/ML 10 ML VIAL IV ONE (16:09)
[2019-01-03] MEDS ORDERED: PROPOFOL 10 MG/ML 20 ML VIAL IV ONE (16:09)
[2019-01-03] MEDS ORDERED: LIDOCAINE 1% INJ 10MG/ML (20 ML MDV) ONE (16:09)
[2019-01-03] MEDS ORDERED: NEOSTIGMINE 1 MG/ML 10 ML VIAL ONE (16:09)
[2019-01-03] MEDS ORDERED: SUCCINYLCHOLINE CHLORIDE 100 MG/5 ML SYR IV ONE (16:09)
[2019-01-03] MEDS ORDERED: GLYCOPYRROLATE 0.2 MG/ML 2 ML VIAL ONE (16:09)
[2019-01-03] MEDS ORDERED: fentaNYL (PF) 50 MCG/ML 2 ML AMP ONE (16:09)
[2019-01-03] MEDS ORDERED: SODIUM CHLORIDE 0.9% 50 ML with ceFAZolin 2,000 MG IV ONE ×2 (16:33)
[2019-01-03] MEDS: EZETIMIBE 10 MG TAB PO SCH (16:47)
--- NOTE | 2019-01-03 16:53 | P.OP ---
Date of Procedure: 01/03/19 Preoperative Diagnosis: Pelvic fluid collection Postoperative Diagnosis: Drainage of pelvic fluid collection Procedure(s) Performed: Exploratory laparotomy with pelvic washout Anesthesia: CODIE Surgeon: Yon Laguna Estimated Blood Loss (ml): 5 Pathology: none sent Condition: stable Disposition: PACU Description of Procedure: Patient's placed on the operative table in supine position. He received general anesthesia. His abdomen was prepped and draped usual sterile fashion. The abdomen was entered through a low midline incision. Upon entering the abdomen there was some serous fluid. The body wall retractors placed a wound. The wound was explored. The sigmoid colon repair was visualized. There is no evidence of any feculent drainage around the sigmoid colon repair area. In the pelvis anterior to the rectum there was a fluid collection. This was drained. There was some small amount of fibropurulent peel next to the small bowel. This was cleaned. There was no obvious abscess. The collection of fluid appeared to be a intraloop loculated collection of serous fluid. There was no feculent staining in the perineal cavity. At this point the abdomen was irrigated. There is no bleeding seen. A BERNARDA drains placed the pelvis and brought out through stab incision. The fascia was closed with looped PDS #1 suture. Skin was closed lauryn. The pervena wound system was placed on the stapled skin. Patient was sent to recovery in stable condition.
[2019-01-03] MEDS ORDERED: LACTATED RINGERS 1,000 ML IV ONE (16:54)
--- NOTE | 2019-01-03 18:41 | PN ---
PROGRESS NOTE DATE OF SERVICE: 01/03/2019 REASON FOR FOLLOWUP: 1. Acute influenza. 2. Abdominal abscess. INTERVAL HISTORY: The patient was seen on rounds early this afternoon. The patient's overall fever pattern has improved. The patient has been complaining of more pain in the right lower abdominal area, more of a dull aching pain, 5 to 6 out of 10. Slightly uncomfortable. No nausea. No vomiting. Did have a bowel movement, though. No blood or mucus in it. PHYSICAL EXAMINATION: Blood pressure is 117/74 with a pulse of 87, temperature 99. He is 95% on room air. General description is a middle-aged male lying in bed in no distress. RESPIRATORY SYSTEM: Unlabored breathing. Clear to auscultation anteriorly. HEART: S1, S2. Regular rate and rhythm. ABDOMEN: Soft. There is slight distention of the lower abdominal area, but no drainage. Mildly tender. LABS: Hemoglobin is 13.8, white count 11,000, BUN of 9, creatinine 0.91. Patient did have a CT of abdomen and pelvis subsequently completed which shows possibility of an anastomosis leak and a developing abscess. DIAGNOSTIC IMPRESSION AND PLAN: 1. Patient with acute influenza A, for which the patient will continue Tamiflu to finish a 5-day course of therapy. 2. Patient with colon perforation at the time of colonoscopy, now with evidence of developing abscess. Patient to be taken to the OR for surgical repair of the same. Would request both aerobic and anaerobic cultures at the time of surgery and drainage of this abscess. Continue the patient on Zosyn. Antibiotic will be adjusted further on the basis of the culture reports. Continue with supportive care. MMODL / IJN: [id number] /
[2019-01-03] MEDS: HYDROmorphone 0.5 MG/0.5 ML SYRINGE IVP PRN (19:43)
[2019-01-03] MEDS: ATORVASTATIN 20 MG TAB PO SCH (20:11)
[2019-01-04] MEDS: PIPERACILLIN-TAZOBACTAM 3.375 GM in SODIUM CHLORIDE 0.9% 100 ML IVPB SCH ×3 (00:18→16:19)
[2019-01-04] MEDS: HYDROmorphone 0.5 MG/0.5 ML SYRINGE IVP PRN ×6 (00:18→20:55)
[2019-01-04 07:12] LABS: Basophils % (A) 0 %; Eosinophils # (A) 0.1 k/uL (0-0.7); Eosinophils % (A) 1 %; HCT 42.4 % (39.0-53.0); HGB 13.8 gm/dL (13.0-17.5); Lymphocytes % (A) 9 %; MCH 31.9 pg (25.0-35.0); MCHC 32.5 g/dL (31.0-37.0); MCV 98.4 fL (80.0-100.0); Mean Platelet Volume 7.2; Monocytes # (A) 0.6 k/uL (0-1.0); Monocytes % (A) 5 %; Neutrophils % (A) 84 %; Platelet Count 315 k/uL (150-450); RBC 4.31 m/uL (4.30-5.90); RDW 13.1 % (11.5-15.5); WBC 11.9 k/uL (3.8-10.6)
[2019-01-04 07:27] LABS: ALT 43 U/L (21-72); AST 31 U/L (17-59); Albumin 2.8 g/dL (3.5-5.0); Alkaline Phosphatase 60 U/L (38-126); Anion Gap 10 mmol/L; Blood Urea Nitrogen 8 mg/dL (9-20); Calcium 8.2 mg/dL (8.4-10.2); Carbon Dioxide 28 mmol/L (22-30); Chloride 99 mmol/L (98-107); Glucose 79 mg/dL (74-99); Sodium 137 mmol/L (137-145); Total Bilirubin 0.7 mg/dL (0.2-1.3); Total Protein 5.4 g/dL (6.3-8.2)
[2019-01-04] MEDS: ENOXAPARIN 40 MG/0.4 ML SYRINGE SQ SCH (07:51)
--- NOTE | 2019-01-04 09:49 | P.PN ---
Subjective Progress Note Date: 01/04/19 Principal diagnosis: Patient doing well today. Pain is improving. T-max 99.6. White blood cell count 11.9. Objective - Vital Signs Vital signs: Vital Signs Temp 99.6 F 01/04/19 08:01 Pulse 96 01/04/19 08:01 Resp 16 01/04/19 08:01 BP 125/78 01/04/19 08:01 Pulse Ox 93 L 01/04/19 08:36 Intake & Output 01/03/19 01/04/19 01/04/19 18:59 06:59 18:59 Intake Total 1300 Output Total 67 560 Balance 1233 -560 Weight 68.039 kg Intake: IV 1300 Output: Drainage 65 Right Abdomen 65 Urine 55 495 Uretheral (Sánchez) 375 Estimated Blood Loss 12 Other: # Voids 2 1 - Exam Chandrakant: Soft, nondistended, incision clean and dry, BERNARDA serosanguineous - Labs CBC & Chem 7: 01/04/19 06:22 01/04/19 06:22 Labs: Abnormal Lab Results - Last 24 Hours (Table) 01/04/19 01/04/19 Range/Units 06:22 06:22 WBC 11.9 H (3.8-10.6) k/uL Neutrophils # 10.0 H (1.3-7.7) k/uL BUN 8 L (9-20) mg/dL Calcium 8.2 L (8.4-10.2) mg/dL Total Protein 5.4 L (6.3-8.2) g/dL Albumin 2.8 L (3.5-5.0) g/dL Assessment and Plan (1) Perforation of colon Narrative/Plan: Patient doing fairly well today. Continue increasing activity. Start clear liquids. Current Visit: Yes Status: Acute Code(s): K63.1 - PERFORATION OF INTESTINE ( NONTRAUMATIC) SNOMED Code(s): 80815394
[2019-01-04] MEDS: OSELTAMIVIR 75 MG CAP PO SCH (10:36)
[2019-01-04] MEDS: HYDROcodone/APAP 5-325MG 1 EACH TAB PO PRN ×2 (10:36→16:17)
[2019-01-04] MEDS: FAMOTIDINE 20 MG TAB PO SCH ×2 (10:37→20:56)
[2019-01-04] MEDS: DOCUSATE 100 MG CAP PO SCH ×2 (10:37→22:36)
[2019-01-04] MEDS: NICOTINE 14MG/24HR PATCH TRANSDERM SCH (10:47)
[2019-01-04] MEDS: LACTATED RINGERS 1,000 ML IV SCH (10:48)
--- NOTE | 2019-01-04 14:26 | P.PN ---
Subjective Progress Note Date: 01/04/19 This is a 53-year-old male patient of Dr. Vieira. Patient presented the same for an elective screening colonoscopy with Dr. Laguna. patient was noted to have perforated colon on colonoscopy. Patient was then taken for laparotomy repair of colon perforation with Dr. Laguna. patient does have a past medical history of hyperlipidemia and current smoker. Patient does report he's had low-grade fevers for the past couple days. Patient denies any other symptoms. Patient does have cough which he reports that his chronic. patient did come back positive for influenza A. patient's heart rate also tachycardic low 100s. Patient ordered for cardiac telemetry monitoring. EKG ordered. Patient currently maintained on Zosyn for IV antibiotics. Dr. Uribe has been consulted for infectious disease.at this time abdomen is soft incision clean dry and intact. Patient denies chest pain or shortness breath. Patient denies nausea vomiting or diarrhea. Patient denies any urinary burning or frequency. On 12/31/2018 patient is alert and oriented 3 sitting up on the couch. Patient was positive for influenza A. started on Tamiflu infectious disease is following. Patient still having temps 101 this a.m. Patient did have loose bowel movement this a.m. Patient to be started on ice chips, popsicles and medication. This time patient denies chest pain or shortness breath. Patient denies nausea vomiting or diarrhea. Patient denies any urinary burning or frequency On 01/01/2019 patient lying oriented 3. Patient remains on Tamiflu and Zosyn. Patient is on clear liquid diet. Patient has been passing bowel movements. Patient is still having temps of 100.1. Infectious disease is following. Has been patient denies chest pain or shortness breath. Patient denies nausea vomiting or diarrhea. Patient denies any urinary burning or frequency. Patient is complaining of some abdominal discomfort with movement On 01/02/2019 patient is alert and oriented 3. Patient is still having fevers. Discussed case with surgical services recommending we keep patient will more day. Patient is still having some abdominal discomfort. Currently maintained on clear liquid diet. Patient denies nausea vomiting or diarrhea. Patient denies any urinary burning or frequency. Patient denies chest pain or shortness breath. Patient did have bowel movement this a.m. On 01/03/2019 patient is alert and oriented 3. Patient has been having low- grade temps 99.7. Throughout the night. Patient states he feels ready to go home. Patient denies nausea vomiting or diarrhea. Patient is still having some abdominal discomfort. CT of abdomen and pelvis has been ordered per services. Infectious disease is following. Patient remains on Zosyn and Tamiflu. On 01/04/2019 patient was seen and examined on the medical floor he is alert and oriented 3 in no apparent distress he is still complaining of abdominal pain otherwise no complaints at this time, there is low-grade fever of 99.6 patient denies any chills no headache no dizziness no chest pain no shortness of breath no cough no nausea or vomiting no diarrhea and no urinary symptoms Objective - Vital Signs Vital signs: Vital Signs Temp 99.6 F 01/04/19 08:01 Pulse 96 01/04/19 08:01 Resp 16 01/04/19 08:01 BP 125/78 01/04/19 08:01 Pulse Ox 93 L 01/04/19 08:36 Intake & Output 01/03/19 01/04/19 01/04/19 18:59 06:59 18:59 Intake Total 1300 Output Total 67 560 Balance 1233 -560 Weight 68.039 kg Intake: IV 1300 Output: Drainage 65 Right Abdomen 65 Urine 55 495 Uretheral (Sánchez) 375 Estimated Blood Loss 12 Other: # Voids 2 1 - Exam In general patient is alert and oriented 3 in no apparent distress Head normocephalic and atraumatic Neck supple no JVD no goiter Lungs diminished bilaterally Heart regular rate and rhythm S1-S2, no rub or gallop Abdomen is soft nontender nondistended. hypoactive bowel sounds. Incisions clean dressing intact Extremities no edema no cyanosis or clubbing Neuro no gross focal neurological deficit - Labs CBC & Chem 7: 01/04/19 06:22 01/04/19 06:22 Labs: Abnormal Lab Results - Last 24 Hours (Table) 01/04/19 01/04/19 Range/Units 06:22 06:22 WBC 11.9 H (3.8-10.6) k/uL Neutrophils # 10.0 H (1.3-7.7) k/uL BUN 8 L (9-20) mg/dL Calcium 8.2 L (8.4-10.2) mg/dL Total Protein 5.4 L (6.3-8.2) g/dL Albumin 2.8 L (3.5-5.0) g/dL Assessment and Plan Plan: 1. Status post laparoscopic colorrhapy post sigmoid colon perforation post colonoscopy with Dr. Laguna. Patient is currently postop day 3. Diet has been advanced to clear liquid diet. Computed tomography scan of abdomen and pelvis revealed evidence of fluid collection in the pelvis patient underwent surgery again on 01/03/2019 with exploratory laparotomy and pelvic washout repeat cultures done infectious disease following currently patient is maintained on IV Zosyn 2. Nicotine dependence. patient educated greater than 3 minutes cessation 3. History of hyperlipidemia. home medications resumed 4. Influenza A possible pneumonia. Patient currently on Zosyn. Started on Tamiflu. X-ray completed showing interstitial pulmonary infiltrates and atelectasis no heart failure Infectious disease following. sputum culture ordered 5. Tachycardic. EKG completed showing normal sinus rhythm and normal EKG Patient also ordered for cardiac monitoring and telemetry. Resolved 6. Acute kidney injury. Creatinine elevated at 1.31 we'll continue to monitor. Abdomen improving to 1.05. Resolved GI prophylaxis Pepcid. DVT prophylaxis Lovenox Thank you for this consultation we'll continue to follow patient closely throughout stay
[2019-01-04] MEDS: EZETIMIBE 10 MG TAB PO SCH (16:17)
[2019-01-04] MEDS: METOCLOPRAMIDE 5 MG/ML 2 ML VIAL IVP PRN (21:00)
--- NOTE | 2019-01-04 23:15 | PN ---
PROGRESS NOTE DATE OF SERVICE: 01/04/2019 REASON FOR FOLLOWUP: Abdominal abscess. INTERVAL HISTORY: The patient is currently afebrile. Patient is breathing comfortably. Denies any chest pain. Occasional cough. No nausea, no vomiting. Abdominal pain is currently controlled. No diarrhea. PHYSICAL EXAMINATION: Blood pressure 133/79 with a pulse of 90, temperature 98.5. He is 92% on room air. General description is a middle-aged male lying in bed in no distress. Respiratory system: Unlabored breathing. Decreased breath sounds at the bases. No wheeze. Heart S1, S2. Regular rate and rhythm. Abdomen soft, mildly distended. No guarding or rigidity. Extremities: No edema of the feet. LABS: Hemoglobin 13.8, white count 11.9, with a BUN of 8, creatinine 0.85. DIAGNOSTIC IMPRESSION AND PLAN: Patient with abdominal abscess status post laparotomy and drainage of the abscess. Unfortunately, culture requested not collected. The patient is currently on Zosyn. We will continue while watching his clinical course closely. Continue supportive care. MMODL / MOUNIKAN: [id number] /
[2019-01-05] MEDS: PIPERACILLIN-TAZOBACTAM 3.375 GM in SODIUM CHLORIDE 0.9% 100 ML IVPB SCH ×4 (00:10→23:36)
[2019-01-05] MEDS: METOCLOPRAMIDE 5 MG/ML 2 ML VIAL IVP PRN (07:45)
[2019-01-05] MEDS: LACTATED RINGERS 1,000 ML IV SCH ×2 (07:45→22:43)
[2019-01-05] MEDS: ENOXAPARIN 40 MG/0.4 ML SYRINGE SQ SCH (07:45)
[2019-01-05 08:20] LABS: Basophils % (A) 0 %; Eosinophils # (A) 0.2 k/uL (0-0.7); Eosinophils % (A) 2 %; HCT 42.2 % (39.0-53.0); HGB 13.9 gm/dL (13.0-17.5); Lymphocytes % (A) 10 %; MCH 32.3 pg (25.0-35.0); MCHC 33.1 g/dL (31.0-37.0); MCV 97.8 fL (80.0-100.0); Mean Platelet Volume 7.9; Monocytes # (A) 0.7 k/uL (0-1.0); Monocytes % (A) 7 %; Neutrophils # (A) 8.1 k/uL (1.3-7.7); Neutrophils % (A) 79 %; Platelet Count 403 k/uL (150-450); RBC 4.31 m/uL (4.30-5.90); RDW 13.2 % (11.5-15.5); WBC 10.2 k/uL (3.8-10.6)
[2019-01-05 08:30] LABS: ALT 42 U/L (21-72); AST 28 U/L (17-59); Albumin 2.9 g/dL (3.5-5.0); Alkaline Phosphatase 71 U/L (38-126); Anion Gap 11 mmol/L; Blood Urea Nitrogen 9 mg/dL (9-20); Calcium 8.4 mg/dL (8.4-10.2); Carbon Dioxide 28 mmol/L (22-30); Chloride 101 mmol/L (98-107); Glucose 85 mg/dL (74-99); Potassium 4.2 mmol/L (3.5-5.1); Sodium 140 mmol/L (137-145); Total Bilirubin 0.7 mg/dL (0.2-1.3); Total Protein 5.6 g/dL (6.3-8.2)
[2019-01-05] MEDS: HYDROmorphone 0.5 MG/0.5 ML SYRINGE IVP PRN (09:38)
[2019-01-05] MEDS: DOCUSATE 100 MG CAP PO SCH ×2 (09:40→22:42)
[2019-01-05] MEDS: FAMOTIDINE 20 MG TAB PO SCH ×2 (09:40→22:42)
[2019-01-05] MEDS: NICOTINE 14MG/24HR PATCH TRANSDERM SCH (09:40)
--- NOTE | 2019-01-05 09:54 | P.PN ---
Subjective Progress Note Date: 01/05/19 Principal diagnosis: Patient doing well today. Pain is improving. T-max 99.6. White blood cell count 11.9. Patient feels more nauseated today. Also feels more bloated. Labs improved. No vomiting. No flatus. Objective - Vital Signs Vital signs: Vital Signs Temp 98.8 F 01/05/19 07:50 Pulse 90 01/05/19 07:50 Resp 16 01/05/19 07:50 BP 135/79 01/05/19 07:50 Pulse Ox 92 L 01/05/19 07:50 Intake & Output 01/04/19 01/05/19 01/05/19 18:59 06:59 18:59 Intake Total 240 200 Balance 240 200 Intake: Oral 240 200 Other: # Voids 2 1 - Exam Abdomen: Soft, mild distention, mild tenderness, dressing clean - Labs CBC & Chem 7: 01/05/19 06:41 01/05/19 06:41 Labs: Abnormal Lab Results - Last 24 Hours (Table) 01/05/19 01/05/19 Range/Units 06:41 06:41 Neutrophils # 8.1 H (1.3-7.7) k/uL Total Protein 5.6 L (6.3-8.2) g/dL Albumin 2.9 L (3.5-5.0) g/dL Assessment and Plan (1) Perforation of colon Narrative/Plan: Will switch to nothing by mouth at this time. Add Toradol for pain control. Ambulate. Current Visit: Yes Status: Acute Code(s): K63.1 - PERFORATION OF INTESTINE ( NONTRAUMATIC) SNOMED Code(s): 35713779
[2019-01-05] MEDS: HYDROcodone/APAP 5-325MG 1 EACH TAB PO PRN (10:38)
[2019-01-05] MEDS: KETOROLAC 30 MG/ML 1 ML VIAL IVP SCH ×3 (12:09→23:36)
--- NOTE | 2019-01-05 12:38 | P.PN ---
Subjective Progress Note Date: 01/05/19 This is a 53-year-old male patient of Dr. Vieira. Patient presented the same for an elective screening colonoscopy with Dr. Laguna. patient was noted to have perforated colon on colonoscopy. Patient was then taken for laparotomy repair of colon perforation with Dr. Laguna. patient does have a past medical history of hyperlipidemia and current smoker. Patient does report he's had low-grade fevers for the past couple days. Patient denies any other symptoms. Patient does have cough which he reports that his chronic. patient did come back positive for influenza A. patient's heart rate also tachycardic low 100s. Patient ordered for cardiac telemetry monitoring. EKG ordered. Patient currently maintained on Zosyn for IV antibiotics. Dr. Uribe has been consulted for infectious disease.at this time abdomen is soft incision clean dry and intact. Patient denies chest pain or shortness breath. Patient denies nausea vomiting or diarrhea. Patient denies any urinary burning or frequency. On 12/31/2018 patient is alert and oriented 3 sitting up on the couch. Patient was positive for influenza A. started on Tamiflu infectious disease is following. Patient still having temps 101 this a.m. Patient did have loose bowel movement this a.m. Patient to be started on ice chips, popsicles and medication. This time patient denies chest pain or shortness breath. Patient denies nausea vomiting or diarrhea. Patient denies any urinary burning or frequency On 01/01/2019 patient lying oriented 3. Patient remains on Tamiflu and Zosyn. Patient is on clear liquid diet. Patient has been passing bowel movements. Patient is still having temps of 100.1. Infectious disease is following. Has been patient denies chest pain or shortness breath. Patient denies nausea vomiting or diarrhea. Patient denies any urinary burning or frequency. Patient is complaining of some abdominal discomfort with movement On 01/02/2019 patient is alert and oriented 3. Patient is still having fevers. Discussed case with surgical services recommending we keep patient will more day. Patient is still having some abdominal discomfort. Currently maintained on clear liquid diet. Patient denies nausea vomiting or diarrhea. Patient denies any urinary burning or frequency. Patient denies chest pain or shortness breath. Patient did have bowel movement this a.m. On 01/03/2019 patient is alert and oriented 3. Patient has been having low- grade temps 99.7. Throughout the night. Patient states he feels ready to go home. Patient denies nausea vomiting or diarrhea. Patient is still having some abdominal discomfort. CT of abdomen and pelvis has been ordered per services. Infectious disease is following. Patient remains on Zosyn and Tamiflu. On 01/04/2019 patient was seen and examined on the medical floor he is alert and oriented 3 in no apparent distress he is still complaining of abdominal pain otherwise no complaints at this time, there is low-grade fever of 99.6 patient denies any chills no headache no dizziness no chest pain no shortness of breath no cough no nausea or vomiting no diarrhea and no urinary symptoms. On 01/05/2019 patient is complaining of abdominal pain he states that he did not know that his pain medications are ordered on as-needed basis he did not ask for any pain medication for more than 12 hours and was having severe pain in the abdomen at this time he is starting to feel better after he received doses of pain medication, otherwise he denies any complaints there is no fever or chills no headache or dizziness no chest pain no shortness of breath no cough no palpitation no nausea or vomiting no diarrhea no burning was urination no frequency or urgency and no hematuria Objective - Vital Signs Vital signs: Vital Signs Temp 98.8 F 01/05/19 07:50 Pulse 90 01/05/19 07:50 Resp 16 01/05/19 07:50 BP 135/79 01/05/19 07:50 Pulse Ox 92 L 01/05/19 07:50 Intake & Output 01/04/19 01/05/19 01/05/19 18:59 06:59 18:59 Intake Total 240 200 Balance 240 200 Intake: Oral 240 200 Other: # Voids 2 1 - Exam In general patient is alert and oriented 3 in no apparent distress Head normocephalic and atraumatic Neck supple no JVD no goiter Lungs diminished bilaterally Heart regular rate and rhythm S1-S2, no rub or gallop Abdomen is soft with mild diffuse tenderness. hypoactive bowel sounds. Incisions clean dressing intact Extremities no edema no cyanosis or clubbing Neuro no gross focal neurological deficit - Labs CBC & Chem 7: 01/05/19 06:41 01/05/19 06:41 Labs: Abnormal Lab Results - Last 24 Hours (Table) 01/05/19 01/05/19 Range/Units 06:41 06:41 Neutrophils # 8.1 H (1.3-7.7) k/uL Total Protein 5.6 L (6.3-8.2) g/dL Albumin 2.9 L (3.5-5.0) g/dL Assessment and Plan Plan: 1. Status post laparoscopic colorrhapy post sigmoid colon perforation post colonoscopy with Dr. Laguna. Patient is currently postop day 3. Diet has been advanced to clear liquid diet. Computed tomography scan of abdomen and pelvis revealed evidence of fluid collection in the pelvis patient underwent surgery again on 01/03/2019 with exploratory laparotomy and pelvic washout repeat cultures done infectious disease following currently patient is maintained on IV Zosyn 2. Nicotine dependence. patient educated greater than 3 minutes cessation 3. History of hyperlipidemia. home medications resumed 4. Influenza A possible pneumonia. Patient currently on Zosyn. Started on Tamiflu. X-ray completed showing interstitial pulmonary infiltrates and atelectasis no heart failure Infectious disease following. sputum culture ordered 5. Tachycardic. EKG completed showing normal sinus rhythm and normal EKG Patient also ordered for cardiac monitoring and telemetry. Resolved 6. Acute kidney injury. Creatinine elevated at 1.31 we'll continue to monitor. Abdomen improving to 1.05. Resolved GI prophylaxis Pepcid. DVT prophylaxis Lovenox Medication and labs reviewed continue with current management Pain medications explained to patient Will follow in a.m.
[2019-01-05] MEDS: EZETIMIBE 10 MG TAB PO SCH (17:27)
--- NOTE | 2019-01-05 19:10 | PN ---
PROGRESS NOTE DATE OF SERVICE: 01/05/2019. REASON FOR FOLLOW UP: Abdominal abscess. INTERVAL HISTORY: The patient is currently afebrile. The patient is breathing comfortably. The patient's abdominal pain has improved. Target of 4 out of 10 compared to 8 out of 10 on Sunday. No chest pain, shortness or breath with minimal cough. No nausea, no vomiting and did not have any bowel movement. PHYSICAL EXAMINATION: Blood pressure is 124/83 with a pulse of 86. Temperature 97.9. He is 93% on room air. General description is a middle-aged male lying in bed in no distress. Respiratory system: Unlabored breathing. Clear to auscultation anteriorly. Heart S1, S2. Regular rate and rhythm. ABDOMEN: Soft, no guarding. No rigidity. Extremities: No edema of the feet. LABS: Hemoglobin 13.8, white count 10.0. BUN of 9, creatinine 0.72. DIAGNOSTIC IMPRESSION AND PLAN: Patient with abdominal abscess in this patient who did have colon polyp colonoscopy, status post . The patient is status post laparotomy and drainage of the abscess with no evidence of any further leakage was noticed. No cultures were done. Currently on Zosyn. White count normalized. Continue for now. Continue supportive care. MMODL / IJN: [id number] /
[2019-01-06] MEDS: KETOROLAC 30 MG/ML 1 ML VIAL IVP SCH ×3 (06:14→18:59)
[2019-01-06 08:18] LABS: Basophils % (A) 0 %; Eosinophils # (A) 0.3 k/uL (0-0.7); Eosinophils % (A) 3 %; HCT 44.8 % (39.0-53.0); HGB 14.4 gm/dL (13.0-17.5); Lymphocytes # (A) 0.9 k/uL (1.0-4.8); Lymphocytes % (A) 9 %; MCH 31.9 pg (25.0-35.0); MCHC 32.2 g/dL (31.0-37.0); Mean Platelet Volume 6.7; Monocytes # (A) 0.5 k/uL (0-1.0); Monocytes % (A) 4 %; Neutrophils # (A) 8.6 k/uL (1.3-7.7); Neutrophils % (A) 82 %; Platelet Count 565 k/uL (150-450); RBC 4.53 m/uL (4.30-5.90); WBC 10.5 k/uL (3.8-10.6)
[2019-01-06 08:26] LABS: ALT 44 U/L (21-72); AST 29 U/L (17-59); Albumin 3.1 g/dL (3.5-5.0); Alkaline Phosphatase 67 U/L (38-126); Anion Gap 10 mmol/L; Blood Urea Nitrogen 11 mg/dL (9-20); Carbon Dioxide 29 mmol/L (22-30); Chloride 103 mmol/L (98-107); Glucose 91 mg/dL (74-99); Potassium 4.3 mmol/L (3.5-5.1); Sodium 142 mmol/L (137-145); Total Bilirubin 0.8 mg/dL (0.2-1.3); Total Protein 6.2 g/dL (6.3-8.2)
--- NOTE | 2019-01-06 09:59 | P.PN ---
Subjective Progress Note Date: 01/06/19 CHIEF COMPLAINT: screening colonoscopy HISTORY OF PRESENT ILLNESS: 53-year-old male who underwent colonoscopy screening on 12/30/2017 with subsequent sigmoid colon perforation. He is status post laparoscopic colorrhaphy. Patient also underwent exploratory laparotomy with pelvic washout on 01/03/2019. Patient states his pain is tolerable at this time. Denies nausea or vomiting. He reports nausea yesterday. He complains of his abdomen feeling bloated and tight. He denies passing flatus or having BM. Patient reports he has been ambulating in the hallway. PHYSICAL EXAM: VITAL SIGNS: Currently stable. GENERAL: Well-developed in no acute distress. HEENT: No sclera icterus. Extraocular movements grossly intact. Moist buccal mucosa. Head is atraumatic, normocephalic. Hears conversational speech. No nasal drainage. NECK: Supple without lymphadenopathy. CHEST: Non-labored respirations and equal bilateral excursions. CARDIOVASCULAR: Regular rate with regular rhythm. Palpable 2+ radial pulses. ABDOMEN: Soft. Nondistended. Dressing clean dry and intact. BERNARDA with minimal serous output. MUSCULOSKELETAL: No clubbing, cyanosis or edema. NEUROLOGIC: No focal or lateralizing signs. Cranial nerves II through XII grossly intact. PSYCH: Appropriate affect. Alert and oriented to person, place and time. SKIN: Well perfused. Good skin turgor. ASSESSMENT: 1. Sigmoid colon perforation status post screening colonoscopy 2. S/P laparoscopic colorrhaphy 3. S/P exploratory laparotomy with pelvic washout on 01/03/2019 PLAN: 1. Ice chips sparingly 2. Reglan 10mg Q6 hours IV 3. Activity as tolerated 4. Begin PPN today Nurse practitioner note has been reviewed by physician. Signing provider agrees with the documented findings, assessment, and plan of care. Objective - Vital Signs Vital signs: Vital Signs Temp 98.7 F 01/06/19 07:00 Pulse 67 01/06/19 07:00 Resp 18 01/06/19 07:00 BP 133/82 01/06/19 07:00 Pulse Ox 94 L 01/06/19 07:00 Intake & Output 01/05/19 01/06/19 01/06/19 18:59 06:59 18:59 Output Total 20 10 Balance -20 -10 Output: Drainage 20 10 Right Abdomen 20 10 Other: # Voids 2 3 - Labs CBC & Chem 7: 01/06/19 07:45 01/06/19 07:45 Labs: Abnormal Lab Results - Last 24 Hours (Table) 01/06/19 01/06/19 Range/Units 07:45 07:45 Plt Count 565 H (150-450) k/uL Neutrophils # 8.6 H (1.3-7.7) k/uL Lymphocytes # 0.9 L (1.0-4.8) k/uL Total Protein 6.2 L (6.3-8.2) g/dL Albumin 3.1 L (3.5-5.0) g/dL
[2019-01-06] MEDS: ENOXAPARIN 40 MG/0.4 ML SYRINGE SQ SCH (10:00)
[2019-01-06] MEDS: FAMOTIDINE 20 MG TAB PO SCH ×2 (10:00→20:48)
[2019-01-06] MEDS: DOCUSATE 100 MG CAP PO SCH ×2 (10:00→20:48)
[2019-01-06] MEDS: PIPERACILLIN-TAZOBACTAM 3.375 GM in SODIUM CHLORIDE 0.9% 100 ML IVPB SCH ×2 (10:01→17:35)
[2019-01-06] MEDS: NICOTINE 14MG/24HR PATCH TRANSDERM SCH (10:02)
--- NOTE | 2019-01-06 10:17 | P.PN ---
Subjective Progress Note Date: 01/06/19 This is a 53-year-old male patient of Dr. Vieira. Patient presented the same for an elective screening colonoscopy with Dr. Laguna. patient was noted to have perforated colon on colonoscopy. Patient was then taken for laparotomy repair of colon perforation with Dr. Laguna. patient does have a past medical history of hyperlipidemia and current smoker. Patient does report he's had low-grade fevers for the past couple days. Patient denies any other symptoms. Patient does have cough which he reports that his chronic. patient did come back positive for influenza A. patient's heart rate also tachycardic low 100s. Patient ordered for cardiac telemetry monitoring. EKG ordered. Patient currently maintained on Zosyn for IV antibiotics. Dr. Uribe has been consulted for infectious disease.at this time abdomen is soft incision clean dry and intact. Patient denies chest pain or shortness breath. Patient denies nausea vomiting or diarrhea. Patient denies any urinary burning or frequency. On 12/31/2018 patient is alert and oriented 3 sitting up on the couch. Patient was positive for influenza A. started on Tamiflu infectious disease is following. Patient still having temps 101 this a.m. Patient did have loose bowel movement this a.m. Patient to be started on ice chips, popsicles and medication. This time patient denies chest pain or shortness breath. Patient denies nausea vomiting or diarrhea. Patient denies any urinary burning or frequency On 01/01/2019 patient lying oriented 3. Patient remains on Tamiflu and Zosyn. Patient is on clear liquid diet. Patient has been passing bowel movements. Patient is still having temps of 100.1. Infectious disease is following. Has been patient denies chest pain or shortness breath. Patient denies nausea vomiting or diarrhea. Patient denies any urinary burning or frequency. Patient is complaining of some abdominal discomfort with movement On 01/02/2019 patient is alert and oriented 3. Patient is still having fevers. Discussed case with surgical services recommending we keep patient will more day. Patient is still having some abdominal discomfort. Currently maintained on clear liquid diet. Patient denies nausea vomiting or diarrhea. Patient denies any urinary burning or frequency. Patient denies chest pain or shortness breath. Patient did have bowel movement this a.m. On 01/03/2019 patient is alert and oriented 3. Patient has been having low- grade temps 99.7. Throughout the night. Patient states he feels ready to go home. Patient denies nausea vomiting or diarrhea. Patient is still having some abdominal discomfort. CT of abdomen and pelvis has been ordered per services. Infectious disease is following. Patient remains on Zosyn and Tamiflu. On 01/04/2019 patient was seen and examined on the medical floor he is alert and oriented 3 in no apparent distress he is still complaining of abdominal pain otherwise no complaints at this time, there is low-grade fever of 99.6 patient denies any chills no headache no dizziness no chest pain no shortness of breath no cough no nausea or vomiting no diarrhea and no urinary symptoms. On 01/05/2019 patient is complaining of abdominal pain he states that he did not know that his pain medications are ordered on as-needed basis he did not ask for any pain medication for more than 12 hours and was having severe pain in the abdomen at this time he is starting to feel better after he received doses of pain medication, otherwise he denies any complaints there is no fever or chills no headache or dizziness no chest pain no shortness of breath no cough no palpitation no nausea or vomiting no diarrhea no burning was urination no frequency or urgency and no hematuria On 01/06/2019 patient is alert and oriented 3. Abdominal pain has decreased. This time patient denies chest pain or shortness breath. Patient denies nausea vomiting or diarrhea. Patient denies any urinary burning or frequency. Patient remains on clear liquid diet per services surgical. Objective - Vital Signs Vital signs: Vital Signs Temp 98.7 F 01/06/19 07:00 Pulse 67 01/06/19 07:00 Resp 18 01/06/19 07:00 BP 133/82 01/06/19 07:00 Pulse Ox 94 L 01/06/19 07:00 Intake & Output 01/05/19 01/06/19 01/06/19 18:59 06:59 18:59 Output Total 20 10 Balance -20 -10 Output: Drainage 20 10 Right Abdomen 20 10 Other: # Voids 2 3 - Exam Head normocephalic Neck supple Lungs diminished bilaterally Heart regular rate and rhythm S1-S2, no rub or gallop Abdomen is soft nontender nondistended. hypoactive bowel sounds. Incisions clean during intact Extremities no edema Neuro alert and orientated to 3 - Labs CBC & Chem 7: 01/06/19 07:45 01/06/19 07:45 Labs: Abnormal Lab Results - Last 24 Hours (Table) 01/06/19 01/06/19 Range/Units 07:45 07:45 Plt Count 565 H (150-450) k/uL Neutrophils # 8.6 H (1.3-7.7) k/uL Lymphocytes # 0.9 L (1.0-4.8) k/uL Total Protein 6.2 L (6.3-8.2) g/dL Albumin 3.1 L (3.5-5.0) g/dL Assessment and Plan Assessment: 1. Status post laparoscopic colorrhapy post sigmoid colon perforation post colonoscopy with Dr. Laguna. Computed tomography scan of abdomen and pelvis revealed evidence of fluid collection in the pelvis patient underwent surgery again on 01/03/2019 with exploratory laparotomy and pelvic washout repeat cultures done infectious disease following currently patient is maintained on IV Zosyn. Clear liquid diet per surgical services. Possible PPN 2. Nicotine dependence. patient educated greater than 3 minutes cessation 3. History of hyperlipidemia. home medications resumed 4. Influenza A possible pneumonia. Patient currently on Zosyn. Started on Tamiflu. X-ray completed showing interstitial pulmonary infiltrates and atelectasis no heart failure Infectious disease following. sputum culture ordered 5. Tachycardic. EKG completed showing normal sinus rhythm and normal EKG Patient also ordered for cardiac monitoring and telemetry. Resolved 6. Acute kidney injury. Creatinine elevated at 1.31 we'll continue to monitor. Resolved GI prophylaxis Pepcid. DVT prophylaxis Lovenox Thank you for this consultation we'll continue to follow patient closely throughout stay I performed an examination of the patient and discussed their management with the Nurse Practitioner. I have reviewed the Nurse Practitioner's notes and agree with the documented findings and plan of care
[2019-01-06] MEDS: METOCLOPRAMIDE 5 MG/ML 2 ML VIAL IVP SCH ×3 (12:35→23:48)
[2019-01-06 15:31] LABS: Magnesium 1.9 mg/dL (1.6-2.3); Phosphorus 3.1 mg/dL (2.5-4.5)
[2019-01-06] MEDS ORDERED: MVI, ADULT NO.4 WITH VIT K 10 ML, TRACE (CONC-1ML/DOSE) 1 ML in AMINO ACID 4.25%-D10W+L... IV SCH ×3 (16:00)
--- NOTE | 2019-01-06 16:29 | PN ---
PROGRESS NOTE DATE OF SERVICE: 01/06/2019 REASON FOR FOLLOWUP: Abdominal abscess from perforated colon. INTERVAL HISTORY: The patient is currently afebrile. The patient's abdominal pain has improved. The patient denies having any chest pain or shortness of breath or cough. No nausea, no vomiting or any diarrhea. Did not have any bowel movement. PHYSICAL EXAMINATION: Blood pressure 133/82 with a pulse of 67, temperature 98.7. He is 94% on room air. General description is a middle-aged male lying in bed in no distress. RESPIRATORY SYSTEM: Unlabored breathing. Clear to auscultation anteriorly. HEART: S1, S2. Regular rate and rhythm. ABDOMEN: Soft. No tenderness. EXTREMITIES: No edema of the feet. LABS: Hemoglobin is 14.4, white count 10.5 with a BUN of 11, creatinine 0.88. DIAGNOSTIC IMPRESSION AND PLAN: Patient with abdominal abscess from a perforated colon, status post laparotomy and drainage of the abscess. No culture. The patient is currently afebrile. White count is normal. Currently he is on Zosyn. Once his oral intake and activity improves and he remains afebrile, hopefully he can finish therapy with oral antibiotics. Continue supportive care. MMODL / IJN: [id number] /
[2019-01-06] MEDS: FAT EMULSION 20% 250 ML IV SCH (17:36)
[2019-01-06] MEDS: EZETIMIBE 10 MG TAB PO SCH (17:57)
[2019-01-06] MEDS: HYDROcodone/APAP 5-325MG 1 EACH TAB PO PRN (23:47)
[2019-01-06 23:49] LABS: Glucose,Whole Blood 125 mg/dL (75-99)
[2019-01-07] MEDS: LACTATED RINGERS 1,000 ML IV SCH (00:27)
[2019-01-07 05:52] LABS: Glucose,Whole Blood 134 mg/dL (75-99)
[2019-01-07] MEDS: NICOTINE 14MG/24HR PATCH TRANSDERM SCH (07:14)
[2019-01-07] MEDS: METOCLOPRAMIDE 5 MG/ML 2 ML VIAL IVP SCH ×3 (07:21→17:06)
[2019-01-07] MEDS: FAMOTIDINE 20 MG TAB PO SCH ×2 (07:21→22:05)
[2019-01-07] MEDS: DOCUSATE 100 MG CAP PO SCH ×2 (07:22→22:05)
[2019-01-07] MEDS: ENOXAPARIN 40 MG/0.4 ML SYRINGE SQ SCH (07:22)
[2019-01-07] MEDS: HYDROcodone/APAP 5-325MG 1 EACH TAB PO PRN ×3 (07:24→22:11)
[2019-01-07 07:48] LABS: Basophils % (A) 0 %; Eosinophils # (A) 0.3 k/uL (0-0.7); Eosinophils % (A) 3 %; HCT 39.2 % (39.0-53.0); HGB 12.3 gm/dL (13.0-17.5); Lymphocytes # (A) 1.3 k/uL (1.0-4.8); Lymphocytes % (A) 13 %; MCH 31.1 pg (25.0-35.0); MCHC 31.5 g/dL (31.0-37.0); Mean Platelet Volume 6.7; Monocytes # (A) 0.4 k/uL (0-1.0); Monocytes % (A) 4 %; Neutrophils # (A) 7.8 k/uL (1.3-7.7); Neutrophils % (A) 78 %; Platelet Count 550 k/uL (150-450); RBC 3.96 m/uL (4.30-5.90); WBC 10.1 k/uL (3.8-10.6)
[2019-01-07] MEDS ORDERED: 1: MVI, ADULT NO.4 WITH VIT K 10 ML, TRACE (CONC-1ML/DOSE) 1 ML in AMINO ACID 4.25%-D10W IV SCH ×3 (08:00)
[2019-01-07 08:03] LABS: ALT 38 U/L (21-72); AST 23 U/L (17-59); Albumin 2.7 g/dL (3.5-5.0); Alkaline Phosphatase 54 U/L (38-126); Anion Gap 4 mmol/L; Blood Urea Nitrogen 10 mg/dL (9-20); Calcium 8.3 mg/dL (8.4-10.2); Carbon Dioxide 33 mmol/L (22-30); Chloride 102 mmol/L (98-107); Glucose 126 mg/dL (74-99); Magnesium 1.9 mg/dL (1.6-2.3); Phosphorus 3.2 mg/dL (2.5-4.5); Potassium 3.8 mmol/L (3.5-5.1); Sodium 139 mmol/L (137-145); Total Bilirubin 0.5 mg/dL (0.2-1.3); Total Protein 5.6 g/dL (6.3-8.2)
[2019-01-07] MEDS: POTASSIUM CHLORIDE 10 MEQ in WATER FOR INJECTION 1 100ML.BAG IVPB SCH ×2 (09:23→10:25)
[2019-01-07] MEDS: MAGNESIUM SULFATE-D5W PMX 1 GM in DEXTROSE/WATER 1 100ML.BAG IVPB SCH ×2 (09:23→10:25)
--- NOTE | 2019-01-07 09:55 | P.PN ---
Subjective Progress Note Date: 01/07/19 This is a 53-year-old male patient of Dr. Vieira. Patient presented the same for an elective screening colonoscopy with Dr. Laguna. patient was noted to have perforated colon on colonoscopy. Patient was then taken for laparotomy repair of colon perforation with Dr. Laguna. patient does have a past medical history of hyperlipidemia and current smoker. Patient does report he's had low- grade fevers for the past couple days. Patient denies any other symptoms. Patient does have cough which he reports that his chronic. patient did come back positive for influenza A. patient's heart rate also tachycardic low 100s. Patient ordered for cardiac telemetry monitoring. EKG ordered. Patient curre ntly maintained on Zosyn for IV antibiotics. Dr. Uribe has been consulted for infectious disease.at this time abdomen is soft incision clean dry and intact. Patient denies chest pain or shortness breath. Patient denies nausea vomiting or diarrhea. Patient denies any urinary burning or frequency. On 12/31/2018 patient is alert and oriented 3 sitting up on the couch. Patient was positive for influenza A. started on Tamiflu infectious disease is following. Patient still having temps 101 this a.m. Patient did have loose bowel movement this a.m. Patient to be started on ice chips, popsicles and medication. This time patient denies chest pain or shortness breath. Patient denies nausea vomiting or diarrhea. Patient denies any urinary burning or frequency On 01/01/2019 patient lying oriented 3. Patient remains on Tamiflu and Zosyn. Patient is on clear liquid diet. Patient has been passing bowel movements. Patient is still having temps of 100.1. Infectious disease is following. Has been patient denies chest pain or shortness breath. Patient denies nausea vomiting or diarrhea. Patient denies any urinary burning or frequency. Patient is complaining of some abdominal discomfort with movement On 01/02/2019 patient is alert and oriented 3. Patient is still having fevers. Discussed case with surgical services recommending we keep patient will more day. Patient is still having some abdominal discomfort. Currently maintained on clear liquid diet. Patient denies nausea vomiting or diarrhea. Patient denies any urinary burning or frequency. Patient denies chest pain or shortness breath. Patient did have bowel movement this a.m. On 01/03/2019 patient is alert and oriented 3. Patient has been having low- grade temps 99.7. Throughout the night. Patient states he feels ready to go home. Patient denies nausea vomiting or diarrhea. Patient is still having some abdominal discomfort. CT of abdomen and pelvis has been ordered per services. Infectious disease is following. Patient remains on Zosyn and Tamiflu. On 01/04/2019 patient was seen and examined on the medical floor he is alert and oriented 3 in no apparent distress he is still complaining of abdominal pain otherwise no complaints at this time, there is low-grade fever of 99.6 patient denies any chills no headache no dizziness no chest pain no shortness of breath no cough no nausea or vomiting no diarrhea and no urinary symptoms. On 01/05/2019 patient is complaining of abdominal pain he states that he did not know that his pain medications are ordered on as-needed basis he did not ask for any pain medication for more than 12 hours and was having severe pain in the abdomen at this time he is starting to feel better after he received doses of pain medication, otherwise he denies any complaints there is no fever or chills no headache or dizziness no chest pain no shortness of breath no cough no palpitation no nausea or vomiting no diarrhea no burning was urination no freque ncy or urgency and no hematuria On 01/06/2019 patient is alert and oriented 3. Abdominal pain has decreased. This time patient denies chest pain or shortness breath. Patient denies nausea vomiting or diarrhea. Patient denies any urinary burning or frequency. Patient remains on clear liquid diet per services surgical. On 01/07/2019 patient remains alert and oriented 3. Patient was started on PPN per surgical services. Patient's diet ADVANCE to clear liquid diet. At this time patient denies chest pain or shortness of breath. Patient denies nausea vomiting or diarrhea she denies any urinary burning or frequency. Patient does report he is passing gas at this time. Wound VAC remains in place. Objective - Vital Signs Vital signs: Vital Signs Temp 98.6 F 01/07/19 07:00 Pulse 75 01/07/19 07:00 Resp 16 01/07/19 07:00 BP 126/76 01/07/19 07:00 Pulse Ox 95 01/07/19 07:00 Intake & Output 01/06/19 01/07/19 01/07/19 18:59 06:59 18:59 Output Total 410 160 Balance -410 -160 Weight 68.22 kg Output: Drainage 410 160 Right Abdomen 410 160 Other: # Voids 2 2 # Bowel Movements 0 - Exam Head normocephalic Neck supple Lungs diminished bilaterally Heart regular rate and rhythm S1-S2, no rub or gallop Abdomen is soft nontender nondistended. hypoactive bowel sounds. Incisions clean during intact Extremities no edema Neuro alert and orientated to 3 - Labs CBC & Chem 7: 01/07/19 07:01 01/07/19 07:01 Labs: Abnormal Lab Results - Last 24 Hours (Table) 01/06/19 01/06/19 01/07/19 Range/Units 07:45 23:47 05:50 RBC (4.30-5.90) m/uL Hgb (13.0-17.5) gm/dL Plt Count (150-450) k/uL Neutrophils # (1.3-7.7) k/uL Carbon Dioxide (22-30) mmol/L Glucose (74-99) mg/dL POC Glucose (mg/dL) 125 H 134 H (75-99) mg/dL Calcium (8.4-10.2) mg/dL Total Protein (6.3-8.2) g/dL Albumin (3.5-5.0) g/dL Triglycerides 163 H (<150) mg/dL 01/07/19 01/07/19 Range/Units 07:01 07:01 RBC 3.96 L (4.30-5.90) m/uL Hgb 12.3 L (13.0-17.5) gm/dL Plt Count 550 H (150-450) k/uL Neutrophils # 7.8 H (1.3-7.7) k/uL Carbon Dioxide 33 H (22-30) mmol/L Glucose 126 H (74-99) mg/dL POC Glucose (mg/dL) (75-99) mg/dL Calcium 8.3 L (8.4-10.2) mg/dL Total Protein 5.6 L (6.3-8.2) g/dL Albumin 2.7 L (3.5-5.0) g/dL Triglycerides (<150) mg/dL Microbiology - Last 24 Hours (Table) 01/06/19 03:00 Gram Stain - Preliminary Sputum Assessment and Plan Assessment: 1. Status post laparoscopic colorrhapy post sigmoid colon perforation post colonoscopy with Dr. Laguna. Computed tomography scan of abdomen and pelvis revealed evidence of fluid collection in the pelvis patient underwent surgery again on 01/03/2019 with exploratory laparotomy and pelvic washout repeat cultures done infectious disease following currently patient is maintained on IV Zosyn. Clear liquid diet per surgical services. Patient maintained on PPI per surgical services 2. Nicotine dependence. patient educated greater than 3 minutes cessation 3. History of hyperlipidemia. home medications resumed 4. Influenza A possible pneumonia. Patient currently on Zosyn. Started on Tamiflu. X-ray completed showing interstitial pulmonary infiltrates and atelectasis no heart failure Infectious disease following. sputum culture ordered 5. Tachycardic. EKG completed showing normal sinus rhythm and normal EKG Patient also ordered for cardiac monitoring and telemetry. Resolved 6. Acute kidney injury. Creatinine elevated at 1.31 we'll continue to monitor. Resolved GI prophylaxis Pepcid. DVT prophylaxis Lovenox Thank you for this consultation we'll continue to follow patient closely throughout stay I performed an examination of the patient and discussed their management with the Nurse Practitioner. I have reviewed the Nurse Practitioner's notes and a gree with the documented findings and plan of care
--- NOTE | 2019-01-07 10:34 | P.PN ---
Subjective Progress Note Date: 01/07/19 CHIEF COMPLAINT: screening colonoscopy HISTORY OF PRESENT ILLNESS: 53-year-old male who underwent colonoscopy screening on 12/30/2017 with subsequent sigmoid colon perforation. He is status post laparoscopic colorrhaphy. Patient also underwent exploratory laparotomy with pelvic washout on 01/03/2019. Patient states his pain is tolerable at this time. Denies nausea or vomiting. He reports passing flatus today. Denies BM. Reports abdominal bloating feels about the same of a little better. Ambulating in the hallway. PHYSICAL EXAM: VITAL SIGNS: Currently stable. GENERAL: Well-developed in no acute distress. HEENT: No sclera icterus. Extraocular movements grossly intact. Moist buccal mucosa. Head is atraumatic, normocephalic. Hears conversational speech. No nasal drainage. NECK: Supple without lymphadenopathy. CHEST: Non-labored respirations and equal bilateral excursions. CARDIOVASCULAR: Regular rate with regular rhythm. Palpable 2+ radial pulses. ABDOMEN: Soft. Nondistended. Dressing clean dry and intact. BERNARDA serous output. MUSCULOSKELETAL: No clubbing, cyanosis or edema. NEUROLOGIC: No focal or lateralizing signs. Cranial nerves II through XII grossly intact. PSYCH: Appropriate affect. Alert and oriented to person, place and time. SKIN: Well perfused. Good skin turgor. ASSESSMENT: 1. Sigmoid colon perforation status post screening colonoscopy 2. S/P laparoscopic colorrhaphy 3. S/P exploratory laparotomy with pelvic washout on 01/03/2019 PLAN: 1. Begin clear liquid diet. 2. Continue Reglan 10mg Q6 hours IV 3. Activity as tolerated 4. Continue PPN 5. Continue BERNARDA drain and PREVENA wound vac Nurse practitioner note has been reviewed by physician. Signing provider agrees with the documented findings, assessment, and plan of care. Objective - Vital Signs Vital signs: Vital Signs Temp 98.6 F 01/07/19 07:00 Pulse 75 01/07/19 07:00 Resp 16 01/07/19 07:00 BP 126/76 01/07/19 07:00 Pulse Ox 95 01/07/19 07:00 Intake & Output 01/06/19 01/07/19 01/07/19 18:59 06:59 18:59 Output Total 410 160 Balance -410 -160 Weight 68.22 kg Output: Drainage 410 160 Right Abdomen 410 160 Other: # Voids 2 2 # Bowel Movements 0 - Labs CBC & Chem 7: 01/07/19 07:01 01/07/19 07:01 Labs: Abnormal Lab Results - Last 24 Hours (Table) 01/06/19 01/06/19 01/07/19 Range/Units 07:45 23:47 05:50 RBC (4.30-5.90) m/uL Hgb (13.0-17.5) gm/dL Plt Count (150-450) k/uL Neutrophils # (1.3-7.7) k/uL Carbon Dioxide (22-30) mmol/L Glucose (74-99) mg/dL POC Glucose (mg/dL) 125 H 134 H (75-99) mg/dL Calcium (8.4-10.2) mg/dL Total Protein (6.3-8.2) g/dL Albumin (3.5-5.0) g/dL Triglycerides 163 H (<150) mg/dL 01/07/19 01/07/19 Range/Units 07:01 07:01 RBC 3.96 L (4.30-5.90) m/uL Hgb 12.3 L (13.0-17.5) gm/dL Plt Count 550 H (150-450) k/uL Neutrophils # 7.8 H (1.3-7.7) k/uL Carbon Dioxide 33 H (22-30) mmol/L Glucose 126 H (74-99) mg/dL POC Glucose (mg/dL) (75-99) mg/dL Calcium 8.3 L (8.4-10.2) mg/dL Total Protein 5.6 L (6.3-8.2) g/dL Albumin 2.7 L (3.5-5.0) g/dL Triglycerides (<150) mg/dL Microbiology - Last 24 Hours (Table) 01/06/19 03:00 Gram Stain - Preliminary Sputum
[2019-01-07 12:12] LABS: Glucose,Whole Blood 132 mg/dL (75-99)
[2019-01-07] MEDS: EZETIMIBE 10 MG TAB PO SCH (13:37)
[2019-01-07] MEDS: 1: MVI, ADULT NO.4 WITH VIT K 10 ML, TRACE (CONC-1ML/DOSE) 1 ML in AMINO ACID 4.25%-D10W IV SCH ×3 (13:37)
[2019-01-07] MEDS: FAT EMULSION 20% 250 ML IV SCH (15:33)
[2019-01-07 19:04] LABS: Glucose,Whole Blood 152 mg/dL (75-99)
[2019-01-08 00:13] LABS: Glucose,Whole Blood 137 mg/dL (75-99)
[2019-01-08] MEDS: METOCLOPRAMIDE 5 MG/ML 2 ML VIAL IVP SCH ×2 (00:29→06:17)
--- NOTE | 2019-01-08 00:58 | PN ---
PROGRESS NOTE DATE OF SERVICE: 01/07/2019. REASON FOR FOLLOWUP: Abdominal abscess. INTERVAL HISTORY: The patient is currently afebrile. The patient is breathing comfortably. Denies having any chest pain. Occasional cough. His abdominal pain has improved. No nausea, no vomiting. No diarrhea. The patient has not had any bowel movement since surgery. PHYSICAL EXAMINATION: Blood pressure 128/78 with a pulse of 63, temperature 98.2. He is 97% on room air. General description: The patient is a middle-aged male lying in bed in no distress. Respiratory system: Unlabored breathing. Clear to auscultation anteriorly. Heart S1, S2. Regular rate and rhythm. Abdomen soft, mildly distended. No guarding or rigidity. Extremities: No edema of the feet. LABS: Hemoglobin is 12.1, white count of 10.9, BUN of 10, creatinine 0.83. DIAGNOSTIC IMPRESSION AND PLAN: Patient with abdominal abscess in this patient who did have perforated bowel status post initial repair followed by laparotomy and drainage of this abscess. Unfortunately, no cultures were done. Currently on Zosyn to continue for now. Once his oral intake is improved, plan to switch him to oral antibiotics while monitoring his clinical course closely. Continue supportive care. MMODL / IJN: [id number] /
[2019-01-08] MEDS: 1: MVI, ADULT NO.4 WITH VIT K 10 ML, TRACE (CONC-1ML/DOSE) 1 ML in AMINO ACID 4.25%-D10W IV SCH ×3 (02:07)
[2019-01-08 05:56] LABS: Glucose,Whole Blood 134 mg/dL (75-99)
[2019-01-08] MEDS: LACTATED RINGERS 1,000 ML IV SCH (07:18)
[2019-01-08] MEDS: NICOTINE 14MG/24HR PATCH TRANSDERM SCH (07:18)
[2019-01-08] MEDS: DOCUSATE 100 MG CAP PO SCH (07:20)
[2019-01-08] MEDS: ENOXAPARIN 40 MG/0.4 ML SYRINGE SQ SCH (07:20)
[2019-01-08] MEDS: FAMOTIDINE 20 MG TAB PO SCH (07:20)
[2019-01-08 07:26] VITALS: BP 124/78; PULSE 74; RESP 16; TEMP 98.2
[2019-01-08 08:05] LABS: Basophils % (A) 0 %; Eosinophils # (A) 0.2 k/uL (0-0.7); Eosinophils % (A) 3 %; HGB 12.4 gm/dL (13.0-17.5); Lymphocytes # (A) 1.3 k/uL (1.0-4.8); Lymphocytes % (A) 16 %; MCH 31.7 pg (25.0-35.0); MCHC 32.5 g/dL (31.0-37.0); MCV 97.7 fL (80.0-100.0); Mean Platelet Volume 6.5; Monocytes # (A) 0.3 k/uL (0-1.0); Monocytes % (A) 4 %; Neutrophils # (A) 6.4 k/uL (1.3-7.7); Neutrophils % (A) 76 %; Platelet Count 556 k/uL (150-450); RBC 3.89 m/uL (4.30-5.90); WBC 8.3 k/uL (3.8-10.6)
[2019-01-08 08:09] LABS: Chloride 101 mmol/L (98-107)
[2019-01-08 08:11] LABS: ALT 49 U/L (21-72); AST 41 U/L (17-59); Albumin 2.7 g/dL (3.5-5.0); Alkaline Phosphatase 68 U/L (38-126); Anion Gap 6 mmol/L; Blood Urea Nitrogen 10 mg/dL (9-20); Calcium 8.1 mg/dL (8.4-10.2); Carbon Dioxide 29 mmol/L (22-30); Glucose 126 mg/dL (74-99); Magnesium 2.1 mg/dL (1.6-2.3); Phosphorus 3.9 mg/dL (2.5-4.5); Sodium 136 mmol/L (137-145); Total Bilirubin 0.4 mg/dL (0.2-1.3); Total Protein 5.7 g/dL (6.3-8.2)
--- NOTE | 2019-01-08 09:35 | P.PN ---
Subjective Progress Note Date: 01/08/19 This is a 53-year-old male patient of Dr. Vieira. Patient presented the same for an elective screening colonoscopy with Dr. Laguna. patient was noted to have perforated colon on colonoscopy. Patient was then taken for laparotomy repair of colon perforation with Dr. Laguna. patient does have a past medical history of hyperlipidemia and current smoker. Patient does report he's had low- grade fevers for the past couple days. Patient denies any other symptoms. Patient does have cough which he reports that his chronic. patient did come back positive for influenza A. patient's heart rate also tachycardic low 100s. Patient ordered for cardiac telemetry monitoring. EKG ordered. Patient curre ntly maintained on Zosyn for IV antibiotics. Dr. Uribe has been consulted for infectious disease.at this time abdomen is soft incision clean dry and intact. Patient denies chest pain or shortness breath. Patient denies nausea vomiting or diarrhea. Patient denies any urinary burning or frequency. On 12/31/2018 patient is alert and oriented 3 sitting up on the couch. Patient was positive for influenza A. started on Tamiflu infectious disease is following. Patient still having temps 101 this a.m. Patient did have loose bowel movement this a.m. Patient to be started on ice chips, popsicles and medication. This time patient denies chest pain or shortness breath. Patient denies nausea vomiting or diarrhea. Patient denies any urinary burning or frequency On 01/01/2019 patient lying oriented 3. Patient remains on Tamiflu and Zosyn. Patient is on clear liquid diet. Patient has been passing bowel movements. Patient is still having temps of 100.1. Infectious disease is following. Has been patient denies chest pain or shortness breath. Patient denies nausea vomiting or diarrhea. Patient denies any urinary burning or frequency. Patient is complaining of some abdominal discomfort with movement On 01/02/2019 patient is alert and oriented 3. Patient is still having fevers. Discussed case with surgical services recommending we keep patient will more day. Patient is still having some abdominal discomfort. Currently maintained on clear liquid diet. Patient denies nausea vomiting or diarrhea. Patient denies any urinary burning or frequency. Patient denies chest pain or shortness breath. Patient did have bowel movement this a.m. On 01/03/2019 patient is alert and oriented 3. Patient has been having low- grade temps 99.7. Throughout the night. Patient states he feels ready to go home. Patient denies nausea vomiting or diarrhea. Patient is still having some abdominal discomfort. CT of abdomen and pelvis has been ordered per services. Infectious disease is following. Patient remains on Zosyn and Tamiflu. On 01/04/2019 patient was seen and examined on the medical floor he is alert and oriented 3 in no apparent distress he is still complaining of abdominal pain otherwise no complaints at this time, there is low-grade fever of 99.6 patient denies any chills no headache no dizziness no chest pain no shortness of breath no cough no nausea or vomiting no diarrhea and no urinary symptoms. On 01/05/2019 patient is complaining of abdominal pain he states that he did not know that his pain medications are ordered on as-needed basis he did not ask for any pain medication for more than 12 hours and was having severe pain in the abdomen at this time he is starting to feel better after he received doses of pain medication, otherwise he denies any complaints there is no fever or chills no headache or dizziness no chest pain no shortness of breath no cough no palpitation no nausea or vomiting no diarrhea no burning was urination no freque ncy or urgency and no hematuria On 01/06/2019 patient is alert and oriented 3. Abdominal pain has decreased. This time patient denies chest pain or shortness breath. Patient denies nausea vomiting or diarrhea. Patient denies any urinary burning or frequency. Patient remains on clear liquid diet per services surgical. On 01/07/2019 patient remains alert and oriented 3. Patient was started on PPN per surgical services. Patient's diet ADVANCE to clear liquid diet. At this time patient denies chest pain or shortness of breath. Patient denies nausea vomiting or diarrhea she denies any urinary burning or frequency. Patient does report he is passing gas at this time. Wound VAC remains in place. 01/08/2019 patient is alert and oriented 3. Patient diet has been advanced to full liquid diet. Wound VAC a BERNARDA drain remain in place. Patient did have 2 bowel movements. At this time patient denies chest pain or shortness of breath. Patient denies nausea vomiting or diarrhea. Patient denies any urinary burning or frequency. Objective - Vital Signs Vital signs: Vital Signs Temp 98.2 F 01/08/19 07:25 Pulse 74 01/08/19 07:25 Resp 16 01/08/19 07:25 BP 124/78 01/08/19 07:25 Pulse Ox 97 01/08/19 07:25 Intake & Output 01/07/19 01/08/19 01/08/19 18:59 06:59 18:59 Intake Total 600 1965 200 Output Total 40 Balance 600 1925 200 Intake: Intake, IV Titration 1765 Amount Fat Emulsion 20% 250 ml @ 315 21 mls/hr IV Q24H KATHY Rx #:[id number] Mvi, Adult No.4 with Vit 1450 K 10 ml Trace (Conc-1Ml/ Dose) 1 ml In Amino Acid 4.25%-D10w+Lytes*E* 1,000 ml @ 100 mls/hr IV .BY DURATION KATHY Rx#: [id number] Oral 400 200 200 Other 200 Output: Drainage 40 Right Abdomen 40 Other: # Voids 3 2 - Exam Head normocephalic Neck supple Lungs diminished bilaterally Heart regular rate and rhythm S1-S2, no rub or gallop Abdomen is soft nontender nondistended. hypoactive bowel sounds. Incisions clean during intact Extremities no edema Neuro alert and orientated to 3 - Labs CBC & Chem 7: 01/08/19 07:06 01/08/19 07:06 Labs: Abnormal Lab Results - Last 24 Hours (Table) 01/07/19 01/07/19 01/08/19 Range/Units 12:10 19:03 00:11 RBC (4.30-5.90) m/uL Hgb (13.0-17.5) gm/dL Hct (39.0-53.0) % Plt Count (150-450) k/uL Sodium (137-145) mmol/L Glucose (74-99) mg/dL POC Glucose (mg/dL) 132 H 152 H 137 H (75-99) mg/dL Calcium (8.4-10.2) mg/dL Total Protein (6.3-8.2) g/dL Albumin (3.5-5.0) g/dL 01/08/19 01/08/19 01/08/19 Range/Units 05:55 07:06 07:06 RBC 3.89 L (4.30-5.90) m/uL Hgb 12.4 L (13.0-17.5) gm/dL Hct 38.0 L (39.0-53.0) % Plt Count 556 H (150-450) k/uL Sodium 136 L (137-145) mmol/L Glucose 126 H (74-99) mg/dL POC Glucose (mg/dL) 134 H (75-99) mg/dL Calcium 8.1 L (8.4-10.2) mg/dL Total Protein 5.7 L (6.3-8.2) g/dL Albumin 2.7 L (3.5-5.0) g/dL Microbiology - Last 24 Hours (Table) 01/06/19 03:00 Gram Stain - Preliminary Sputum Sputum Culture - Preliminary Yumiko albicans Assessment and Plan Assessment: 1. Status post laparoscopic colorrhapy post sigmoid colon perforation post colonoscopy with Dr. Laguna. Computed tomography scan of abdomen and pelvis revealed evidence of fluid collection in the pelvis patient underwent surgery again on 01/03/2019 with exploratory laparotomy and pelvic washout repeat cultures done infectious disease following currently patient is maintained on IV Zosyn. Full Liquid per surgical services. Patient maintained on PPI per surgical services. Per infectious disease once his oral intake improved plan to switch him to oral antibiotics 2. Nicotine dependence. patient educated greater than 3 minutes cessation 3. History of hyperlipidemia. home medications resumed 4. Influenza A possible pneumonia. Patient currently on Zosyn. Started on Tamiflu. X-ray completed showing interstitial pulmonary infiltrates and atelectasis no heart failure Infectious disease following. sputum culture ordered 5. Tachycardic. EKG completed showing normal sinus rhythm and normal EKG Patient also ordered for cardiac monitoring and telemetry. Resolved 6. Acute kidney injury. Creatinine elevated at 1.31 we'll continue to monitor. Resolved GI prophylaxis Pepcid. DVT prophylaxis Lovenox Thank you for this consultation we'll continue to follow patient closely throughout stay I performed an examination of the patient and discussed their management with the Nurse Practitioner. I have reviewed the Nurse Practitioner's notes and agree with the documented findings and plan of care
[2019-01-08] MEDS ORDERED: 1: MVI, ADULT NO.4 WITH VIT K 10 ML, TRACE (CONC-1ML/DOSE) 1 ML in AMINO ACID 4.25%-D10W IV SCH ×3 (12:00)
[2019-01-08 12:31] LABS: Glucose,Whole Blood 107 mg/dL (75-99)
--- NOTE | 2019-01-08 13:10 | P.DS ---
Providers Date of admission: 12/31/18 08:46 Expected date of discharge: 01/08/19 Attending physician: Yon Laguna Consults: 12/30/18 12:07 Consult Physician Routine Consulting Provider: Gayle Tucker Consult Reason/Comments: Medical management Do you want consulting provider notified?: Yes 12/30/18 15:16 Consult Physician Routine Consulting Provider: Davey Uribe Consult Reason/Comments: febrile colon perf Do you want consulting provider notified?: Yes Primary care physician: Kimberley Vieira Hospital Course: 53-year-old male who underwent colonoscopy screening on 12/30/2017 with subsequent sigmoid colon perforation. He is status post laparoscopic colorrhaphy. Patient also underwent exploratory laparotomy with pelvic washout on 01/03/2019. Patient developed postoperative ileus and required TPN infusion. Ileus has resolved. He has been tolerating PO intake without nausea or vomiting. Pain controlled with current medications. WBC within normal limits. He is stable for discharge home today. BERNARDA to remain in place at time of discharge. Patient to follow up with Dr. Laguna outpatient within one week. Dr. Uribe recommends Augmentin at the time of discharge. Please see EMR for further hospital course details. Discharge Diagnosis: 1. Sigmoid colon perforation status post screening colonoscopy 2. S/P laparoscopic colorrhaphy 3. S/P exploratory laparotomy with pelvic washout on 01/03/2019 4. Post op ileus, expected, resolved Nurse practitioner note has been reviewed by physician. Signing provider agrees with the documented findings, assessment, and plan of care. Plan - Discharge Summary Discharge Rx Participant: No New Discharge Prescriptions: New HYDROcodone/APAP 7.5-325MG [[place] 7.5-325] 1 tab PO Q4H PRN 3 Days #18 tab PRN Reason: Pain Docusate [Colace] 100 mg PO BID #30 capsule Amoxic-Pot Clav 875-125Mg [Augmentin 875-125] 1 tab PO Q12HR #14 tablet Nicotine 14Mg/24Hr Patch [Habitrol] 1 patch TRANSDERM DAILY 30 Days #30 patch Continue Ezetimibe [Zetia] 10 mg PO DAILY@1400 Ubidecarenone [Co Q-10] 200 mg PO DAILY Glucosam/Trav-Msm1/C/Zurdo/Bosw [Glucosamine-Chondroitin Tablet] 1 tab PO DAILY Atorvastatin [Lipitor] 20 mg PO WEFR Aspirin [Adult Low Dose Aspirin EC] 81 mg PO DAILY Multivitamins, Thera [Multivitamin (formulary)] 1 tab PO DAILY Cholecalciferol [Vitamin D3] 2,000 unit PO DAILY Turmeric Root Extract [Turmeric] 500 mg PO DAILY Discharge Medication List Aspirin [Adult Low Dose Aspirin EC] 81 mg PO DAILY 12/27/18 [History] Atorvastatin [Lipitor] 20 mg PO WEFR 12/27/18 [History] Cholecalciferol [Vitamin D3] 2,000 unit PO DAILY 12/27/18 [History] Ezetimibe [Zetia] 10 mg PO DAILY@1400 12/27/18 [History] Glucosam/Trav-Msm1/C/Zurdo/Bosw [Glucosamine-Chondroitin Tablet] 1 tab PO DAILY 12/27/18 [History] Multivitamins, Thera [Multivitamin (formulary)] 1 tab PO DAILY 12/27/18 [History] Turmeric Root Extract [Turmeric] 500 mg PO DAILY 12/27/18 [History] Ubidecarenone [Co Q-10] 200 mg PO DAILY 12/27/18 [History] Docusate [Colace] 100 mg PO BID #30 capsule 01/01/19 [Rx] HYDROcodone/APAP 7.5-325MG [[place] 7.5-325] 1 tab PO Q4H PRN 3 Days #18 tab 01/01/19 [Rx] Amoxic-Pot Clav 875-125Mg [Augmentin 875-125] 1 tab PO Q12HR #14 tablet 01/08/19 [Rx] Nicotine 14Mg/24Hr Patch [Habitrol] 1 patch TRANSDERM DAILY 30 Days #30 patch 01/08/19 [Rx] Follow up Appointment(s)/Referral(s): Kimberley Vieira DO [Primary Care Provider] - 01/14/19 10:00 am Yon Laguna MD [STAFF PHYSICIAN] - 01/14/19 4:00 pm Patient Instructions/Handouts: Full Liquid Diet (DC) Activity/Diet/Wound Care/Special Instructions: No driving while taking [place] No lifting over 10 pounds You may shower. No soaking or tub baths Very light activity until you are reevaluated at your follow up appointment with your surgeon PREVENA wound vac to come off SundayJanuary 10 by home care nursing Place optifoam dressing over midline incision after MAYRAENA has been discontinued Please send patient home with dressing Keep a log of BERNARDA drainage output
--- NOTE | 2019-01-08 13:52 | PN ---
PROGRESS NOTE DATE OF SERVICE: 01/08/2019 REASON FOR FOLLOWUP: Abdominal abscess. INTERVAL HISTORY: The patient is currently afebrile. Patient is breathing comfortably. The patient's abdominal pain has improved. Denies nausea, vomiting. Tolerating a soft diet and did have bowel movement x2 today. PHYSICAL EXAMINATION: Blood pressure 134/78 with a pulse of 74, temp 98.2. He is 97% on room air. General description is a middle-aged male up in the bed, in no distress. RESPIRATORY SYSTEM: Unlabored breathing clear to auscultation anteriorly. HEART: S1, S2. Regular rate and rhythm. ABDOMEN: Soft, no tenderness. LABS: Hemoglobin 12.4, white count 8.3, BUN of 10, creatinine 0.73. DIAGNOSTIC IMPRESSION AND PLAN: Patient with abdominal abscess. The patient did have status post laparotomy and drainage of the abscess. The patient received about 9 to 10 days of antibiotic therapy. Will transition to a short course of oral Augmentin 875 b.i.d. Patient advised if any worsening abdominal pain or development of any fever to let us know right away. Continue supportive care. MMODL / IJN: [id number] /
== END 2019-01-08 14:47 | disposition home or self-care (01) | DRG 907 ==
LOC: ORWHC2ENDO 08:18 → 4SSUR 12:11 → ORWHC2ENDO 21:43 → 4SSUR 21:44 → OBSVTOIN 12-31 08:46
PROVIDERS: ADMIT Surgery; ATTEND Surgery
PROC: 0DQN4ZZ Repair Sigmoid Colon, Percutaneous Endoscopic Approach (ICD-10-PCS; 2018-12-30)
PROC: 0DJD8ZZ Inspection of Lower Intestinal Tract, Via Natural or Artificial Opening Endoscopic (ICD-10-PCS; principal; 2018-12-30 09:45)
PROC: 0W9G0ZZ Drainage of Peritoneal Cavity, Open Approach (ICD-10-PCS; 2019-01-03)
PROC: 0DH67UZ Insertion of Feeding Device into Stomach, Via Natural or Artificial Opening (ICD-10-PCS; 2019-01-06)
PROC: 3E0G76Z Introduction of Nutritional Substance into Upper GI, Via Natural or Artificial Opening (ICD-10-PCS; 2019-01-06)
DX: K91.71 Accidental puncture and laceration of a digestive system organ or structure during a digestive system procedure (principal); J10.00 Influenza due to other identified influenza virus with unspecified type of pneumonia; K65.9 Peritonitis, unspecified; J18.9 Pneumonia, unspecified organism; N17.9 Acute kidney failure, unspecified; K56.7 Ileus, unspecified; J98.11 Atelectasis; K91.89 Other postprocedural complications and disorders of digestive system; Y83.8 Other surgical procedures as the cause of abnormal reaction of the patient, or of later complication, without mention of misadventure at the time of the procedure; K63.5 Polyp of colon; R00.0 Tachycardia, unspecified; Y73.3 Surgical instruments, materials and gastroenterology and urology devices (including sutures) associated with adverse incidents; E78.5 Hyperlipidemia, unspecified; F17.210 Nicotine dependence, cigarettes, uncomplicated; Z79.82 Long term (current) use of aspirin; Z80.9 Family history of malignant neoplasm, unspecified
CPT/HCPCS: 45330; 71046; 74177; 80048; 80053; 81001; 83735; 84100; 84478; 85025; 87070; 87086; 87205; 87502; 93005; 94760

== ENCOUNTER 2019-03-02 06:43 | Inpatient (IN) | payer BC, OTHER ==
[2019-03-02] MEDS ORDERED: SODIUM CHLORIDE 0.9% 1,000 ML IV STA (07:17)
[2019-03-02] MEDS ORDERED: ONDANSETRON 4 MG/2 ML VIAL IVP STA (07:17)
[2019-03-02 07:28] LABS: Basophils % (A) 0 %; Eosinophils # (A) 0.2 k/uL (0-0.7); Eosinophils % (A) 1 %; Lymphocytes # (A) 1.6 k/uL (1.0-4.8); Lymphocytes % (A) 10 %; MCH 31.8 pg (25.0-35.0); MCHC 32.2 g/dL (31.0-37.0); MCV 98.5 fL (80.0-100.0); Mean Platelet Volume 7.3; Monocytes # (A) 0.5 k/uL (0-1.0); Monocytes % (A) 3 %; Neutrophils # (A) 13.4 k/uL (1.3-7.7); Neutrophils % (A) 85 %; Platelet Count 333 k/uL (150-450); RBC 5.07 m/uL (4.30-5.90); RDW 13.5 % (11.5-15.5); WBC 15.7 k/uL (3.8-10.6)
[2019-03-02] MEDS ORDERED: HYDROmorphone 1 MG/ML 1 ML SYRINGE IVP STA (07:29)
[2019-03-02 07:31] LABS: HGB 16.1 gm/dL (13.0-17.5)
--- NOTE | 2019-03-02 07:42 | ED ---
Abdominal Pain HPI - General Source: patient, RN notes reviewed, old records reviewed Mode of arrival: ambulatory Limitations: no limitations <Renate Ivan - Last Filed: 03/02/19 09:14> <Abdias Gold - Last Filed: 03/02/19 09:47> - General Chief Complaint: Abdominal Pain Stated Complaint: Abdominal Pain Time Seen by Provider: 03/02/19 07:07 - History of Present Illness Initial Comments: Vision is a 54-year-old male who presents emergency Department today with complaints of upper abdominal pain leading towards back. He states symptoms haven't starting after eating for the past few weeks. Recent surgical history including bowel resection after a perforated bowel during colonoscopy. Patient's surgeon is Dr. Laguna. Patient states that he's had some chills. He reports nausea, vomiting. Patient reports he's not had a bowel movement in the yesterday. (Renate Ivan) - Related Data Home Medications Medication Instructions Recorded Confirmed Aspirin [Adult Low Dose Aspirin EC] 81 mg PO DAILY@139912/27/18 03/02/19 Atorvastatin [Lipitor] 20 mg PO WEFR@139912/27/18 03/02/19 Cholecalciferol [Vitamin D3] 2,000 unit PO DAILY@139912/27/18 03/02/19 Ezetimibe [Zetia] 10 mg PO DAILY@139912/27/18 03/02/19 Glucosam/Trav-Msm1/C/Zurdo/Bosw 1 tab PO DAILY@139912/27/18 03/02/19 [Glucosamine-Chondroitin Tablet] Multivitamins, Thera [Multivitamin 1 tab PO DAILY@139912/27/18 03/02/19 (formulary)] Turmeric Root Extract [Turmeric] 500 mg PO DAILY@139912/27/18 03/02/19 Ubidecarenone [Co Q-10] 200 mg PO DAILY@139912/27/18 03/02/19 Allergies Allergy/AdvReac Type Severity Reaction Status Date / Time adhesive tape Allergy Rash/Hives Verified 03/02/19 08:25 Review of Systems ROS Other: All systems not noted in ROS Statement are negative. <Renate Ivan - Last Filed: 03/02/19 09:14> ROS Other: All systems not noted in ROS Statement are negative. <Gold,Abdias - Last Filed: 03/02/19 09:47> ROS Statement: Those systems with pertinent positive or pertinent negative responses have been documented in the HPI. Past Medical History Past Medical History: Hyperlipidemia Additional Past Medical History / Comment(s): seizure with a fever as , History of Any Multi-Drug Resistant Organisms: None Reported Past Surgical History: Hernia Repair Additional Past Surgical History / Comment(s): fatty "tissue" removed from b uttock, colonoscopy Past Anesthesia/Blood Transfusion Reactions: No Reported Reaction Past Psychological History: No Psychological Hx Reported Past Alcohol Use History: Rare Past Drug Use History: None Reported - Past Family History Father Family Medical History: Cancer <Renate Ivan - Last Filed: 03/02/19 09:14> General Exam Limitations: no limitations General appearance: alert, in no apparent distress Head exam: Present: atraumatic, normocephalic, normal inspection Eye exam: Present: normal appearance, PERRL, EOMI. Absent: scleral icterus, conjunctival injection, periorbital swelling ENT exam: Present: normal exam, mucous membranes moist Neck exam: Present: normal inspection. Absent: tenderness, meningismus, lymphadenopathy Respiratory exam: Present: normal lung sounds bilaterally. Absent: respiratory distress, wheezes, rales, rhonchi, stridor Cardiovascular Exam: Present: regular rate, normal rhythm, normal heart sounds. Absent: systolic murmur, diastolic murmur, rubs, gallop, clicks GI/Abdominal exam: Present: soft, tenderness (Diffuse abdominal tenderness worse in the left upper and right upper quadrant.), normal bowel sounds, other (Well-appearing incision site over the suprapubic region to the umbilicus from patient's recent bowel resection surgery.). Absent: distended, guarding, rebound, rigid Extremities exam: Present: full ROM Back exam: Present: normal inspection Neurological exam: Present: alert, oriented X3, CN II-XII intact <Renate Ivan - Last Filed: 03/02/19 09:14> - General Exam Comments Initial Comments: 54-year-old male. Alert and oriented. No distress. (Renate Ivan) Course Vital Signs 03/02/19 06:45 Temperature 98.2 F Pulse Rate 85 Respiratory 16 Rate Blood Pressure 128/80 O2 Sat by Pulse 98 Oximetry Medical Decision Making - Lab Data Result diagrams: 03/02/19 07:00 03/02/19 08:07 - Radiology Data Radiology results: report reviewed <MarzenaRenate bashir - Last Filed: 03/02/19 09:14> - Lab Data Result diagrams: 03/02/19 07:00 03/02/19 08:07 <Abdias Gold - Last Filed: 03/02/19 09:47> - Medical Decision Making Patient's 54-year-old male who presents emergency department today for evaluation for nausea and vomiting and diffuse abdominal pain. Patient has some pain. Towards his back. Patient had multiple episodes of vomiting. While in ED has significant tenderness and guarding noted. This blood work was obtained. Mild leukocytosis of 15,000. Chemstrip panels are normal. Patient's CT shows evidence of a partial small bowel structure with transition point in the right lower quadrant. Patient was given 2 L bolus. Patient has a resting comfortably in bed, no active vomiting. We'll hold off on NG tube. Patient be remaining nothing by mouth. Patient will be admitted under Dr. Castillo. Dr. Herrmann discussed case with on-call surgeon Dr. Smith. (Renate Ivan) Patient reevaluated by myself, Dr. Gold. Patient resting comfortably in bed. Patient does have moderate diffuse tenderness with mild guarding. CT report reviewed. Patient and family updated. Case was discussed with Dr. Link, covering for Dr. Laguna, who will admit patient. He would like NG tube. (Abdias Gold) - Lab Data Lab Results 03/02/19 03/02/19 03/02/19 Range/Units 07:00 07:00 08:07 WBC 15.7 H (3.8-10.6) k/uL RBC 5.07 (4.30-5.90) m/uL Hgb 16.1 D (13.0-17.5) gm/dL Hct 50.0 (39.0-53.0) % MCV 98.5 (80.0-100.0) fL MCH 31.8 (25.0-35.0) pg MCHC 32.2 (31.0-37.0) g/dL RDW 13.5 (11.5-15.5) % Plt Count 333 (150-450) k/uL Neutrophils % 85 % Lymphocytes % 10 % Monocytes % 3 % Eosinophils % 1 % Basophils % 0 % Neutrophils # 13.4 H (1.3-7.7) k/uL Lymphocytes # 1.6 (1.0-4.8) k/uL Monocytes # 0.5 (0-1.0) k/uL Eosinophils # 0.2 (0-0.7) k/uL Basophils # 0.0 (0-0.2) k/uL PT 10.6 (9.0-12.0) sec INR 1.0 (<1.2) APTT 23.3 (22.0-30.0) sec Sodium 138 (137-145) mmol/L Potassium 4.0 (3.5-5.1) mmol/L Chloride 105 (98-107) mmol/L Carbon Dioxide 25 (22-30) mmol/L Anion Gap 8 mmol/L BUN 10 (9-20) mg/dL Creatinine 0.77 (0.66-1.25) mg/dL Est GFR (CKD-EPI)AfAm >90 (>60 ml/min/1.73 sqM) Est GFR (CKD-EPI)NonAf >90 (>60 ml/min/1.73 sqM) Glucose 115 H (74-99) mg/dL Calcium 8.8 (8.4-10.2) mg/dL Total Bilirubin 0.4 (0.2-1.3) mg/dL AST 16 L (17-59) U/L ALT 29 (21-72) U/L Alkaline Phosphatase 93 (38-126) U/L Total Protein 6.7 (6.3-8.2) g/dL Albumin 3.8 (3.5-5.0) g/dL Amylase 37 (30-110) U/L Lipase 43 (23-300) U/L - Radiology Data Evidence of partial small bowel obstruction with transition point right lower quadrant. Postsurgical changes. Small sliding hiatal hernia. Atelectasis versus consolidation in both lung bases. Mild bladder wall thickening which may be in the bases lack of distention. Cystitis her chronic lateral and syndrome cannot be excluded. (Renate Ivan) Disposition Is patient prescribed a controlled substance at d/c from ED?: No Time of Disposition: 09:15 <Renate Ivan - Last Filed: 03/02/19 09:14> <Abdias Gold - Last Filed: 03/02/19 09:47> Clinical Impression: SBO (small bowel obstruction) Disposition: ADMITTED IP TO THIS [facility] Condition: Stable Referrals: Kimberley Vieira DO [Primary Care Provider] - 1-2 days
[2019-03-02 07:58] LABS: Partial Thromboplastin Time 23.3 sec (22.0-30.0); Prothrombin Time 10.6 sec (9.0-12.0)
[2019-03-02] MEDS ORDERED: SODIUM CHLORIDE 0.9% 1,000 ML IV ONE (08:28)
--- NOTE | 2019-03-02 08:31 | CT ---
EXAMINATION TYPE: CT abdomen pelvis w con DATE OF EXAM: 03/02/2019 REFERENCE: Previous study dated 01/14/2019. HISTORY: pain, vomiting HISTORY: Abdominal pain CT DLP: 533.2 mGy Automated exposure control for dose reduction was used. TECHNIQUE: Helical acquisition through the abdomen and pelvis was obtained following the oral ingesti on of without Oral Contrast and following intravenous administration of 100 ml mL of Isovue 300. The data was reformatted in axial, coronal and sagittal projections. FINDINGS: There are emphysematous changes within the lungs. There is atelectasis or consolidation at both lung bases. There is no pleural or pericardial fluid. The heart is not enlarged. There is a small, sliding hiatal hernia. Within the abdomen, the liver is upper limits of normal in size measuring 17.5 cm. The spleen and gal lbladder are normal. Both adrenal glands are normal. Both kidneys demonstrate function and appear morphologically normal. The pancreas is unremarkable. There is no significant retrocrural peritoneal, iliac or inguinal adenopathy. There is mild to modera te atheromatous calcification of the visualized arterial tree. The bladder wall appears mildly thickened. The bladder however is not distended. There are scattered diverticula within the sigmoid colon. There is postsurgical change in the proxima l sigmoid colon. There is no evidence of diverticulitis at this time. The appendix appears unremarkab le. There are dilated loops of proximal small bowel with a transition point in the right lower quadrant. There is no evidence of free air. There is no significant free fluid. No osseous lesion is seen. IMPRESSION: 1. EVIDENCE OF A PARTIAL SMALL BOWEL OBSTRUCTION WITH TRANSITION POINT IN THE RIGHT LOWER QUADRANT. 2. POSTSURGICAL CHANGE. 3. SMALL, SLIDING HIATAL HERNIA. 4. ATELECTASIS VERSUS CONSOLIDATION, BOTH LUNG BASES. 5. MILD BLADDER WALL THICKENING WHICH MAY BE ON THE BASIS OF LACK OF DISTENTION. CYSTITIS OR CHRONIC BLADDER OUTLET OBSTRUCTION CANNOT BE EXCLUDED.
[2019-03-02 08:33] LABS: ALT 29 U/L (21-72); AST 16 U/L (17-59); Albumin 3.8 g/dL (3.5-5.0); Alkaline Phosphatase 93 U/L (38-126); Amylase 37 U/L (30-110); Anion Gap 8 mmol/L; Blood Urea Nitrogen 10 mg/dL (9-20); Calcium 8.8 mg/dL (8.4-10.2); Carbon Dioxide 25 mmol/L (22-30); Chloride 105 mmol/L (98-107); Glucose 115 mg/dL (74-99); Lipase 43 U/L (23-300); Sodium 138 mmol/L (137-145); Total Bilirubin 0.4 mg/dL (0.2-1.3); Total Protein 6.7 g/dL (6.3-8.2)
[2019-03-02] MEDS: SODIUM CHLORIDE 0.9% 1,000 ML IV SCH (08:50)
[2019-03-02] MEDS ORDERED: KETOROLAC 30 MG/ML 1 ML VIAL IVP PRN (09:15)
[2019-03-02] MEDS ORDERED: ONDANSETRON 4 MG/2 ML VIAL IVP PRN (09:15)
[2019-03-02] MEDS ORDERED: HYDROmorphone 1 MG/ML 1 ML SYRINGE IVP PRN (09:15)
[2019-03-02] MEDS ORDERED: NALOXONE 0.4 MG/ML 1 ML VIAL IV PRN (09:15)
[2019-03-02] MEDS ORDERED: LORazepam 2 MG/ML INJ IV STA (09:36)
--- NOTE | 2019-03-02 11:48 | P.GSHP ---
History of Present Illness H&P Date: 03/02/19 Chief Complaint: Small bowel obstruction Patient known to our service. Patient underwent previous repair of a sigmoid colon perforation after colonoscopy. Over the last week or so the patient has had vague abdominal cramps. He says he felt gassy. This was increased yeste rday to the point that he had episodes of vomiting. He presents to the ER describing decreased bowel function recently. He did have a small bowel movement yesterday. No hematemesis. No fevers. CAT scan abdomen was performed which shows a partial small bowel obstruction. Patient feels better currently. White blood cell count mildly elevated. - Review of Systems Comment: The patient denies any acute changes in vision or hearing, no dysphagia or odyno phagia, no chest pain or shortness of breath, no dysuria or hematuria, no headache, no runny nose, no rectal bleeding or melena, no unexplained weight loss Past Medical History Past Medical History: Hyperlipidemia Additional Past Medical History / Comment(s): seizure with a fever as infant, History of Any Multi-Drug Resistant Organisms: None Reported Past Surgical History: Hernia Repair Additional Past Surgical History / Comment(s): fatty "tissue" removed from buttock, colonoscopy Past Anesthesia/Blood Transfusion Reactions: No Reported Reaction Past Psychological History: No Psychological Hx Reported Smoking Status: Current every day smoker Past Alcohol Use History: Rare Additional Past Alcohol Use History / Comment(s): smokes > 1 PPD, has smoked since age 17 Past Drug Use History: None Reported - Past Family History Father Family Medical History: Cancer Mother Family Medical History: COPD Medications and Allergies Home Medications Medication Instructions Recorded Confirmed Type Aspirin [Adult Low Dose Aspirin EC] 81 mg PO DAILY@139912/27/18 03/02/19 Hi story Atorvastatin [Lipitor] 20 mg PO WEFR@139912/27/18 03/02/19 History Cholecalciferol [Vitamin D3] 2,000 unit PO DAILY@139912/27/18 03/02/19 History Ezetimibe [Zetia] 10 mg PO DAILY@139912/27/18 03/02/19 History Glucosam/Trav-Msm1/C/Zurdo/Bosw 1 tab PO DAILY@139912/27/18 03/02/19 History [Glucosamine-Chondroitin Tablet] Multivitamins, Thera [Multivitamin 1 tab PO DAILY@139912/27/18 03/02/19 History (formulary)] Turmeric Root Extract [Turmeric] 500 mg PO DAILY@139912/27/18 03/02/19 History Ubidecarenone [Co Q-10] 200 mg PO DAILY@139912/27/18 03/02/19 History Allergies Allergy/AdvReac Type Severity Reaction Status Date / Time adhesive tape Allergy Rash/Hives Verified 03/02/19 08:25 Surgical - Exam Vital Signs Temp Pulse Resp BP Pulse Ox 98.2 F 85 16 128/80 98 03/02/19 06:45 03/02/19 06:45 03/02/19 06:45 03/02/19 06:45 03/02/19 06:45 Physical exam: General: Well-developed, well-nourished HEENT: Normocephalic, sclerae nonicteric Abdomen: Mild diffuse tenderness, minimally distended Extremities: No edema Neuro: Alert and oriented Results - Labs 03/02/19 07:00 03/02/19 08:07 Abnormal Lab Results - Last 24 Hours (Table) 03/02/19 03/02/19 Range/Units 07:00 08:07 WBC 15.7 H (3.8-10.6) k/uL Neutrophils # 13.4 H (1.3-7.7) k/uL Glucose 115 H (74-99) mg/dL AST 16 L (17-59) U/L Diabetes panel 03/02/19 Range/Units 08:07 Sodium 138 (137-145) mmol/L Potassium 4.0 (3.5-5.1) mmol/L Chloride 105 (98-107) mmol/L Carbon Dioxide 25 (22-30) mmol/L BUN 10 (9-20) mg/dL Creatinine 0.77 (0.66-1.25) mg/dL Glucose 115 H (74-99) mg/dL Calcium 8.8 (8.4-10.2) mg/dL AST 16 L (17-59) U/L ALT 29 (21-72) U/L Alkaline Phosphatase 93 (38-126) U/L Total Protein 6.7 (6.3-8.2) g/dL Albumin 3.8 (3.5-5.0) g/dL Calcium panel 03/02/19 Range/Units 08:07 Calcium 8.8 (8.4-10.2) mg/dL Albumin 3.8 (3.5-5.0) g/dL Pituitary panel 03/02/19 Range/Units 08:07 Sodium 138 (137-145) mmol/L Potassium 4.0 (3.5-5.1) mmol/L Chloride 105 (98-107) mmol/L Carbon Dioxide 25 (22-30) mmol/L BUN 10 (9-20) mg/dL Creatinine 0.77 (0.66-1.25) mg/dL Glucose 115 H (74-99) mg/dL Calcium 8.8 (8.4-10.2) mg/dL Adrenal panel 03/02/19 Range/Units 08:07 Sodium 138 (137-145) mmol/L Potassium 4.0 (3.5-5.1) mmol/L Chloride 105 (98-107) mmol/L Carbon Dioxide 25 (22-30) mmol/L BUN 10 (9-20) mg/dL Creatinine 0.77 (0.66-1.25) mg/dL Glucose 115 H (74-99) mg/dL Calcium 8.8 (8.4-10.2) mg/dL Total Bilirubin 0.4 (0.2-1.3) mg/dL AST 16 L (17-59) U/L ALT 29 (21-72) U/L Alkaline Phosphatase 93 (38-126) U/L Total Protein 6.7 (6.3-8.2) g/dL Albumin 3.8 (3.5-5.0) g/dL Assessment and Plan (1) SBO (small bowel obstruction) Narrative/Plan: Patient was small bowel obstruction. Likely on the basis of adhesions. Apparently attempts at nasogastric tube placement were unsuccessful. Keep nothing by mouth for now. Repeat abdominal x-rays tomorrow. Current Visit: Yes Status: Acute Code(s): K56.609 - UNSP INTESTNL OBST, UNSP TO PARTIAL VERSUS COMPLETE OBST SNOMED Code(s): 462529957
--- NOTE | 2019-03-02 13:22 | P.HPIM ---
History of Present Illness H&P Date: 03/02/19 Chief Complaint: abdominal pain and vomiting Alfredo Montanez is a 54 year old male who presented to [facility] emergency room with a chief complaint of abdominal pain that started 10 days prior to presentation and has been worsening and with a history of vomiting that started on the night prior to presentation. Patient underwent previous repair of a sigmoid colon perforation after colonoscopy. Patient was evaluated in the emergency room white blood count was elevated at 15.7 computed tomography scan of the abdomen and pelvis revealed evidence of small bowel obstruction he was kept nothing by mouth and was admitted to surgical service medical consul tation was requested for management while hospitalized. Patient has a known history of hyperlipidemia maintained on Lipitor and Zetia he has a known history of smoking since age 17 otherwise no significant history could be elicited he has a possible right inguinal hernia for which she has an appointment follow-up with Dr. Laguna in the near future. Past Medical History Past Medical History: Hyperlipidemia Additional Past Medical History / Comment(s): seizure with a fever as , History of Any Multi-Drug Resistant Organisms: None Reported Past Surgical History: Hernia Repair Additional Past Surgical History / Comment(s): fatty "tissue" removed from buttock, colonoscopy Past Anesthesia/Blood Transfusion Reactions: No Reported Reaction Past Psychological History: No Psychological Hx Reported Smoking Status: Current every day smoker Past Alcohol Use History: Rare Additional Past Alcohol Use History / Comment(s): smokes > 1 PPD, has smoked since age 17 Past Drug Use History: None Reported - Past Family History Father Family Medical History: Cancer Mother Family Medical History: COPD Medications and Allergies Home Medications Medication Instructions Recorded Confirmed Type Aspirin [Adult Low Dose Aspirin EC] 81 mg PO DAILY@139912/27/18 03/02/19 Histor y Atorvastatin [Lipitor] 20 mg PO WEFR@139912/27/18 03/02/19 History Cholecalciferol [Vitamin D3] 2,000 unit PO DAILY@139912/27/18 03/02/19 History Ezetimibe [Zetia] 10 mg PO DAILY@139912/27/18 03/02/19 History Glucosam/Trav-Msm1/C/Zurdo/Bosw 1 tab PO DAILY@139912/27/18 03/02/19 History [Glucosamine-Chondroitin Tablet] Multivitamins, Thera [Multivitamin 1 tab PO DAILY@1400 12/27/18 03/02/19 History (formulary)] Turmeric Root Extract [Turmeric] 500 mg PO DAILY@1400 12/27/18 03/02/19 History Ubidecarenone [Co Q-10] 200 mg PO DAILY@1400 12/27/18 03/02/19 History Allergies Allergy/AdvReac Type Severity Reaction Status Date / Time adhesive tape Allergy Rash/Hives Verified 03/02/19 08:25 Physical Exam Vitals: Vital Signs Temp Pulse Pulse Resp BP BP Pulse Ox 03/02/19 12:00 95 16 03/02/19 11:15 98.6 F 95 16 106/67 98 03/02/19 10:40 98.2 F 98 18 120/75 91 L 03/02/19 06:45 98.2 F 85 16 128/80 98 Intake and Output 03/01/19 03/02/19 03/02/19 22:59 06:59 14:59 Other: Voiding Method Toilet Weight 65.771 kg Patient is alert but somnolent awakes easily and responds to questions appropriately in no apparent distress HEENT head normocephalic and atraumatic Neck is supple no JVD no goiter no lymphadenopathy Chest exam reveals clear respiratory sounds bilaterally no crackles no wheezing Cardiac exam reveals regular heart sounds S1 and S2 no gallops no murmurs Abdomen is soft nontender no organomegaly with normal bowel sounds Extremity exam reveals no edema no cyanosis or clubbing Neurological examination reveals no gross focal deficit Results CBC & Chem 7: 03/02/19 07:00 03/02/19 08:07 Labs: Abnormal Lab Results - Last 24 Hours (Table) 03/02/19 03/02/19 Range/Units 07:00 08:07 WBC 15.7 H (3.8-10.6) k/uL Neutrophils # 13.4 H (1.3-7.7) k/uL Glucose 115 H (74-99) mg/dL AST 16 L (17-59) U/L Thrombosis Risk Factor Assmnt - Choose All That Apply Each Factor Represents 1 point: Age 41-60 years, Minor surgery planned Thrombosis Risk Factor Assessment Total Risk Factor Score: 2 Thrombosis Risk Factor Assessment Level: Low Risk Assessment and Plan Plan: #1 small bowel obstruction #2 leukocytosis likely related to bowel obstruction no clear evidence of infection at this time no need for IV antibiotics will monitor closely #3 underlying history of hyperlipidemia will hold Lipitor evidence that she had this time #4 prolonged history of smoking, nicotine patch was ordered #5 for DVT prophylaxis patient is on subcu heparin for GI prophylaxis patient on IV Protonix At this time will monitor closely patient was started on IV fluid Will recheck labs and abdomen x-ray in a.m. No other active medical issues at this time will monitor closely
[2019-03-02] MEDS ORDERED: NON-FORMULARY DRUG (Ubidecarenone [Co Q-10] 200 MG) PO SCH (14:00)
[2019-03-02] MEDS ORDERED: ASPIRIN 81 MG PO SCH (14:00)
[2019-03-02] MEDS ORDERED: NON-FORMULARY DRUG (Turmeric Root Extract [Turmeric] 500 MG) PO SCH (14:00)
[2019-03-02] MEDS ORDERED: CHOLECALCIFEROL 1,000 UNIT TAB PO SCH (14:00)
[2019-03-02] MEDS ORDERED: MULTIVITAMINS, THERA 1 EACH TAB PO SCH (14:00)
[2019-03-02] MEDS ORDERED: NON-FORMULARY DRUG (Glucosam/Chon-Msm1/C/Mang/Bosw [Glucosamine-Chondroitin Tablet] 1 TAB) PO SCH (14:00)
[2019-03-02 15:15] LABS: Appearance,Urine Clear (Clear); Bilirubin,Urine Negative (Negative); Blood,Urine Negative (Negative); Color,Urine Yellow; Glucose,Urine (UA) Negative (Negative); Ketones,Urine Negative (Negative); Leukocyte Esterase,Urine Negative (Negative); Nitrite,Urine Negative (Negative); Protein,Urine Negative (Negative); Urobilinogen,Urine <2.0 mg/dL (<2.0)
[2019-03-02] MEDS: EZETIMIBE 10 MG TAB PO SCH (16:15)
[2019-03-02] MEDS: NICOTINE 21MG/24HR PATCH TRANSDERM SCH (17:04)
[2019-03-02] MEDS: HEPARIN SODIUM,PORCINE 5,000 UNIT/ML 1 ML VIAL SQ SCH (17:04)
[2019-03-03] MEDS: HEPARIN SODIUM,PORCINE 5,000 UNIT/ML 1 ML VIAL SQ SCH ×4 (00:01→16:12)
[2019-03-03] MEDS: SODIUM CHLORIDE 0.9% 1,000 ML IV SCH ×4 (06:23→16:08)
--- NOTE | 2019-03-03 07:40 | XR ---
EXAMINATION TYPE: XR abdomen 2V DATE OF EXAM: 03/03/2019 CLINICAL DATA: 54-year-old male bowel obstruction, [facility] COMPARISON: CT 03/02/2019 FINDINGS: Lung bases are clear. No evidence for free intraperitoneal air. Scattered dilated small bowel loops with air-fluid levels. Some minimal scattered colonic gas is pres ent. Small bowel loops are dilated up to 4.1 cm versus 3.8 cm on 03/02/2019 CT. IMPRESSION: 1. No free air. 2. Continued small bowel obstruction. Small bowel loops measure roughly stable to slightly larger at 4.1 cm versus 3.8 cm, previously. Ongoing follow-up recommended.
[2019-03-03 08:48] LABS: ALT 26 U/L (21-72); AST 15 U/L (17-59); Albumin 3.1 g/dL (3.5-5.0); Alkaline Phosphatase 78 U/L (38-126); Anion Gap 3 mmol/L; Blood Urea Nitrogen 10 mg/dL (9-20); Calcium 8.5 mg/dL (8.4-10.2); Carbon Dioxide 26 mmol/L (22-30); Chloride 110 mmol/L (98-107); Glucose 73 mg/dL (74-99); Potassium 3.9 mmol/L (3.5-5.1); Sodium 139 mmol/L (137-145); Total Bilirubin 0.7 mg/dL (0.2-1.3); Total Protein 5.7 g/dL (6.3-8.2)
[2019-03-03] MEDS: PANTOPRAZOLE 40 MG/10 ML VIAL IV SCH (08:51)
[2019-03-03 09:13] LABS: Basophils % (A) 0 %; Eosinophils # (A) 0.3 k/uL (0-0.7); Eosinophils % (A) 4 %; HCT 41.4 % (39.0-53.0); HGB 13.5 gm/dL (13.0-17.5); Lymphocytes # (A) 2.4 k/uL (1.0-4.8); Lymphocytes % (A) 25 %; MCH 31.7 pg (25.0-35.0); MCHC 32.5 g/dL (31.0-37.0); MCV 97.5 fL (80.0-100.0); Mean Platelet Volume 6.9; Monocytes # (A) 0.4 k/uL (0-1.0); Monocytes % (A) 4 %; Neutrophils # (A) 6.2 k/uL (1.3-7.7); Neutrophils % (A) 66 %; Platelet Count 257 k/uL (150-450); RBC 4.25 m/uL (4.30-5.90); RDW 13.6 % (11.5-15.5); WBC 9.5 k/uL (3.8-10.6)
--- NOTE | 2019-03-03 10:37 | P.PN ---
Subjective Progress Note Date: 03/03/19 Alfredo Montanez is a 54 year old male who presented to [facility] emergency room with a chief complaint of abdominal pain that started 10 days prior to presentation and has been worsening and with a history of vomiting that started on the night prior to presentation. Patient underwent previous repair of a sigmoid colon perforation after colonoscopy. Patient was evaluated in the emergency room white blood count was elevated at 15.7 computed tomography scan of the abdomen and pelvis revealed evidence of small bowel obstruction he was kept nothing by mouth and was admitted to surgical service medical consultation was requested for management while hospitalized. Patient has a known history of hyperlipidemia maintained on Lipitor and Zetia he has a known history of smoking since age 17 otherwise no significant history could be elicited he has a possible right inguinal hernia for which she has an appointment follow-up with Dr. Laguna in the near future. On 03/03/2018 patient is alert and oriented 3. Patient is feeling improved. Patient is passing gas. Abdominal pain has subsided. Surgical services are following. This time patient denies any nausea or vomiting. Complains of mild abdominal pain. Patient denies any urinary burning or frequency. Patient denies chest pain or shortness of breath Objective - Vital Signs Vital signs: Vital Signs Temp 98.2 F 03/03/19 05:37 Pulse 83 03/03/19 05:37 Resp 16 03/03/19 05:37 BP 100/65 03/03/19 05:37 Pulse Ox 93 L 03/03/19 05:37 Intake & Output 03/02/19 03/03/19 03/03/19 18:59 06:59 18:59 Intake Total 0 Output Total 1000 Balance -1000 0 Intake: Oral 0 Output: Urine 1000 Other: Voiding Method Toilet Toilet # Voids 2 - Exam Patient is alert but somnolent awakes easily and responds to questions appropriately in no apparent distress HEENT head normocephalic and atraumatic Neck is supple no JVD no goiter no lymphadenopathy Chest exam reveals clear respiratory sounds bilaterally no crackles no wheezing Cardiac exam reveals regular heart sounds S1 and S2 no gallops no murmurs Abdomen is soft nontender no organomegaly with normal bowel sounds Extremity exam reveals no edema no cyanosis or clubbing Neurological examination reveals no gross focal deficit - Labs CBC & Chem 7: 03/03/19 08:22 03/03/19 08:22 Labs: Abnormal Lab Results - Last 24 Hours (Table) 03/02/19 03/03/19 03/03/19 Range/Units 15:00 08:22 08:22 RBC 4.25 L (4.30-5.90) m/uL Chloride 110 H (98-107) mmol/L Glucose 73 L (74-99) mg/dL AST 15 L (17-59) U/L Total Protein 5.7 L (6.3-8.2) g/dL Albumin 3.1 L (3.5-5.0) g/dL Ur Specific [place] 1.050 H (1.001-1.035) Assessment and Plan Assessment: #1 small bowel obstruction. Abdominal x-ray completed showing no free air. Continued small bowel obstruction. Small bowel loops measure roughly stable to slightly larger 4.1 cm versus 3.8 previously. Surgical services are following. #2 leukocytosis likely related to bowel obstruction no clear evidence of infection at this time no need for IV antibiotics will monitor closely. White blood cell has normalized at 9.5 #3 underlying history of hyperlipidemia will hold Lipitor evidence that she had this time #4 prolonged history of smoking, nicotine patch was ordered #5 for DVT prophylaxis patient is on subcu heparin for GI prophylaxis patient on IV Protonix #6 previous perforation Post colonoscopy. Status post laparoscopic colorrhapy on 12/30/2018 with fluid collection requiring exploratory lap on 01/03/2019 with pelvic washout #7 previous influenza completed treatment DVT prophylaxis heparin. GI prophylaxis Protonix I performed an examination of the patient and discussed their management with the Nurse Practitioner. I have reviewed the Nurse Practitioner's notes and agree with the documented findings and plan of care
--- NOTE | 2019-03-03 13:35 | P.PN ---
Subjective Progress Note Date: 03/03/19 CHIEF COMPLAINT: Abdominal pain HISTORY OF PRESENT ILLNESS: Patient examined at the bedside today. Patient reports passing flatus and having a loose bowel movement this morning. Reports mild tenderness to left lower quadrant. Denies nausea or vomiting. Abdominal x-ray this morning reveals continued small bowel obstruction. Small bowel loops measuring roughly stable to slightly larger at 4.1 cm versus 3.8 cm previously. PHYSICAL EXAM: VITAL SIGNS: Reviewed. GENERAL: Well-developed in no acute distress. HEENT: No sclera icterus. Extraocular movements grossly intact. Moist buccal mucosa. Head is atraumatic, normocephalic. ABDOMEN: Soft. Nondistended. Mild tenderness to left lower quadrant. NEUROLOGIC: Alert and oriented. Cranial nerves II through XII grossly intact. ASSESSMENT: 1. Small bowel obstruction PLAN: Case discussed with Dr. Laguna. Patient may begin clear liquid diet as tolerated. Will continue to monitor. Nurse practitioner note has been reviewed by physician. Signing provider agrees with the documented findings, assessment, and plan of care. Objective - Vital Signs Vital signs: Vital Signs Temp 97.7 F 03/03/19 11:45 Pulse 83 03/03/19 11:45 Resp 17 03/03/19 11:45 BP 106/66 03/03/19 11:45 Pulse Ox 93 L 03/03/19 11:45 Intake & Output 03/02/19 03/03/19 03/03/19 18:59 06:59 18:59 Intake Total 0 Output Total 1000 Balance -1000 0 Intake: Oral 0 Output: Urine 1000 Other: Voiding Method Toilet Toilet Toilet # Voids 2 - Labs CBC & Chem 7: 03/03/19 08:22 03/03/19 08:22 Labs: Abnormal Lab Results - Last 24 Hours (Table) 03/02/19 03/03/19 03/03/19 Range/Units 15:00 08:22 08:22 RBC 4.25 L (4.30-5.90) m/uL Chloride 110 H (98-107) mmol/L Glucose 73 L (74-99) mg/dL AST 15 L (17-59) U/L Total Protein 5.7 L (6.3-8.2) g/dL Albumin 3.1 L (3.5-5.0) g/dL Ur Specific [place] 1.050 H (1.001-1.035)
[2019-03-03] MEDS: EZETIMIBE 10 MG TAB PO SCH (16:08)
[2019-03-03] MEDS: NICOTINE 21MG/24HR PATCH TRANSDERM SCH (16:11)
[2019-03-04] MEDS: HEPARIN SODIUM,PORCINE 5,000 UNIT/ML 1 ML VIAL SQ SCH ×2 (00:19→10:33)
[2019-03-04] MEDS: SODIUM CHLORIDE 0.9% 1,000 ML IV SCH ×2 (03:00→10:33)
[2019-03-04 05:29] VITALS: RESP 16; TEMP 97.9
[2019-03-04 07:56] LABS: Basophils % (A) 1 %; Eosinophils # (A) 0.3 k/uL (0-0.7); Eosinophils % (A) 5 %; HCT 39.5 % (39.0-53.0); Lymphocytes # (A) 2.2 k/uL (1.0-4.8); Lymphocytes % (A) 40 %; MCH 31.7 pg (25.0-35.0); MCHC 33.1 g/dL (31.0-37.0); MCV 95.9 fL (80.0-100.0); Mean Platelet Volume 7.4; Monocytes # (A) 0.3 k/uL (0-1.0); Monocytes % (A) 5 %; Neutrophils # (A) 2.6 k/uL (1.3-7.7); Neutrophils % (A) 47 %; Platelet Count 255 k/uL (150-450); RBC 4.12 m/uL (4.30-5.90); RDW 13.3 % (11.5-15.5); WBC 5.4 k/uL (3.8-10.6)
[2019-03-04 08:22] LABS: ALT 24 U/L (21-72); AST 17 U/L (17-59); Albumin 3.2 g/dL (3.5-5.0); Alkaline Phosphatase 79 U/L (38-126); Anion Gap 7 mmol/L; Blood Urea Nitrogen 8 mg/dL (9-20); Calcium 8.7 mg/dL (8.4-10.2); Carbon Dioxide 25 mmol/L (22-30); Chloride 107 mmol/L (98-107); Glucose 81 mg/dL (74-99); Sodium 139 mmol/L (137-145); Total Bilirubin 0.7 mg/dL (0.2-1.3); Total Protein 5.9 g/dL (6.3-8.2)
[2019-03-04] MEDS: PANTOPRAZOLE 40 MG/10 ML VIAL IV SCH (10:50)
--- NOTE | 2019-03-04 11:37 | P.PN ---
Subjective Progress Note Date: 03/04/19 CHIEF COMPLAINT: Abdominal pain HISTORY OF PRESENT ILLNESS: Patient examined at the bedside today. Patient is tolerating full liquid diet. Patient is passing flatus. Patient reports having a soft bowel movement yesterday. He denies abdominal pain. PHYSICAL EXAM: VITAL SIGNS: Reviewed. GENERAL: Well-developed in no acute distress. HEENT: No sclera icterus. Extraocular movements grossly intact. Moist buccal mucosa. Head is atraumatic, normocephalic. ABDOMEN: Soft. Nondistended. Nontender NEUROLOGIC: Alert and oriented. Cranial nerves II through XII grossly intact. ASSESSMENT: 1. Small bowel obstruction PLAN: Patient encouraged to continue full liquid/bland diet post discharge. May continue Colace daily. Patient may be discharged from a surgical standpoint. Patient to follow up with Dr. Laguna outpatient. Nurse practitioner note has been reviewed by physician. Signing provider agrees with the documented findings, assessment, and plan of care. Objective - Vital Signs Vital signs: Vital Signs Temp 97.9 F 03/04/19 05:00 Pulse 74 03/04/19 05:00 Resp 16 03/04/19 08:00 BP 108/69 03/04/19 05:00 Pulse Ox 94 L 03/04/19 05:00 Intake & Output 03/03/19 03/04/19 03/04/19 18:59 06:59 18:59 Intake Total 500 1960 Balance 500 1960 Intake: IV 500 Sodium Chloride 0.9% 1, 500 000 ml @ 100 mls/hr IV . Q10H KATHY Rx#:[id number] Intake, IV Titration 400 Amount Sodium Chloride 0.9% 1, 400 000 ml @ 100 mls/hr IV . Q10H KATHY Rx#:[id number] Oral 1560 Other: Voiding Method Toilet Toilet Toilet # Voids 2 2 - Labs CBC & Chem 7: 03/04/19 06:41 03/04/19 06:41 Labs: Abnormal Lab Results - Last 24 Hours (Table) 03/04/19 03/04/19 Range/Units 06:41 06:41 RBC 4.12 L (4.30-5.90) m/uL BUN 8 L (9-20) mg/dL Total Protein 5.9 L (6.3-8.2) g/dL Albumin 3.2 L (3.5-5.0) g/dL
[2019-03-04 12:02] VITALS: BP 113/68; PULSE 75
--- NOTE | 2019-03-04 13:42 | P.DS ---
Providers Date of admission: 03/02/19 09:47 Expected date of discharge: 03/04/19 Attending physician: Yon Laguna Consults: 03/02/19 11:48 Consult Physician Routine Consulting Provider: Gayle Tucker Consult Reason/Comments: Medical management Do you want consulting provider notified?: Yes Primary care physician: Kimberley Vieira [facility] Course: Discharge diagnosis #1 small bowel obstruction. Abdominal x-ray completed showing no free air. Continued small bowel obstruction. Small bowel loops measure roughly stable to slightly larger 4.1 cm versus 3.8 previously. Patient having bowel movement. Patient has been cleared for discharge from surgical standpoint. Patient maintained full liquid bland diet post discharge to continue Colace upon discharge. Patient to follow-up with surgical services outpatient #2 leukocytosis likely related to bowel obstruction no clear evidence of infection at this time no need for IV antibiotics will monitor closely. White blood cell has normalized at 9.5 #3 underlying history of hyperlipidemia will hold Lipitor evidence that she had this time #4 prolonged history of smoking, nicotine patch was ordered #5 for DVT prophylaxis patient is on subcu heparin for GI prophylaxis patient on IV Protonix #6 previous perforation Post colonoscopy. Status post laparoscopic colorrhapy on 12/30/2018 with fluid collection requiring exploratory lap on 01/03/2019 with pelvic washout #7 previous influenza completed treatment Hospital course Alfredo Montanez is a 54 year old male who presented to [facility] emergency room with a chief complaint of abdominal pain that started 10 days prior to presentation and has been worsening and with a history of vomiting that started on the night prior to presentation. Patient underwent previous repair of a sigmoid colon perforation after colonoscopy. Patient was evaluated in the emergency room white blood count was elevated at 15.7 computed tomography scan of the abdomen and pelvis revealed evidence of small bowel obstruction he was kept nothing by mouth and was admitted to surgical service medical consultation was requested for management while hospitalized. Patient has a known history of hyperlipidemia maintained on Lipitor and Zetia he has a known history of smoking since age 17 otherwise no significant history could be elicited he has a possible right inguinal hernia for which she has an appointment follow-up with Dr. Laguna in the near future. On 03/03/2018 patient is alert and oriented 3. Patient is feeling improved. Patient is passing gas. Abdominal pain has subsided. Surgical services are following. This time patient denies any nausea or vomiting. Complains of mild abdominal pain. Patient denies any urinary burning or frequency. Patient denies chest pain or shortness of breath On 03/04/2019 patient is alert and oriented 3. Patient is feeling improved. Patient is having bowel movement. Discussed with surgical FOOD EQUIPMENT SERVICE TECHNICIAN. Okay to discharge home. Patient to maintain on full liquid bland diet upon discharge. Patient follow-up with Dr. Laguna outpatient. At this time patient denies chest pain or shortness breath. Patient denies nausea vomiting or diarrhea. Patient denies any urinary burning or frequency I performed an examination of the patient and discussed their management with the Nurse Practitioner. I have reviewed the Nurse Practitioner's notes and agree with the documented findings and plan of care Patient Condition at Discharge: Stable Plan - Discharge Summary New Discharge Prescriptions: New Pantoprazole [Protonix] 40 mg PO DAILY 30 Days #30 tablet.dr Kurtz Ezetimibe [Zetia] 10 mg PO DAILY@1400 Ubidecarenone [Co Q-10] 200 mg PO DAILY@1400 Glucosam/Trav-Msm1/C/Zurdo/Bosw [Glucosamine-Chondroitin Tablet] 1 tab PO DAILY@1400 Atorvastatin [Lipitor] 20 mg PO WEFR@1400 Aspirin [Adult Low Dose Aspirin EC] 81 mg PO DAILY@1400 Multivitamins, Thera [Multivitamin (formulary)] 1 tab PO DAILY@1400 Cholecalciferol [Vitamin D3] 2,000 unit PO DAILY@1400 Turmeric Root Extract [Turmeric] 500 mg PO DAILY@1400 Discharge Medication List Aspirin [Adult Low Dose Aspirin EC] 81 mg PO DAILY@139912/27/18 [History] Atorvastatin [Lipitor] 20 mg PO WEFR@139912/27/18 [History] Cholecalciferol [Vitamin D3] 2,000 unit PO DAILY@1400 12/27/18 [History] Ezetimibe [Zetia] 10 mg PO DAILY@139912/27/18 [History] Glucosam/Trav-Msm1/C/Zurdo/Bosw [Glucosamine-Chondroitin Tablet] 1 tab PO DAILY@1400 12/27/18 [History] Multivitamins, Thera [Multivitamin (formulary)] 1 tab PO DAILY@1400 12/27/18 [History] Turmeric Root Extract [Turmeric] 500 mg PO DAILY@139912/27/18 [History] Ubidecarenone [Co Q-10] 200 mg PO DAILY@1400 12/27/18 [History] Pantoprazole [Protonix] 40 mg PO DAILY 30 Days #30 tablet. 03/04/19 [Rx] Follow up Appointment(s)/Referral(s): Kimberley Vieira DO [Primary Care Provider] - 1-2 days Yon Laguna MD [STAFF PHYSICIAN] - 1 Week Activity/Diet/Wound Care/Special Instructions: Diet full liquid bland diet Activity as tolerated Discharge Disposition: HOME SELF-CARE
[2019-03-05] MEDS ORDERED: PANTOPRAZOLE 40 MG TABLET PO SCH (09:00)
[2019-03-05] MEDS ORDERED: ATORVASTATIN 20 MG TAB PO SCH (14:00)
== END 2019-03-04 14:27 | disposition home or self-care (01) | DRG 390 ==
LOC: EC 06:43 → 3NMEDONC 09:47
PROVIDERS: ADMIT Surgery; ATTEND Surgery
DX: K56.51 Intestinal adhesions [bands], with partial obstruction (principal); F17.210 Nicotine dependence, cigarettes, uncomplicated; D72.829 Elevated white blood cell count, unspecified; E78.5 Hyperlipidemia, unspecified; Z79.82 Long term (current) use of aspirin; Z79.899 Other long term (current) drug therapy; Z82.5 Family history of asthma and other chronic lower respiratory diseases; Z80.9 Family history of malignant neoplasm, unspecified; Z98.890 Other specified postprocedural states
CPT/HCPCS: 36415; 74019; 74177; 80053; 81003; 82150; 83690; 85025; 85610; 85730; 96361; 96374; 96375; 99285

== ENCOUNTER 2021-08-28 07:46 | Inpatient (IN) | payer BC, OTHER ==
[2021-08-28] MEDS ORDERED: ONDANSETRON 4 MG/2 ML VIAL IVP STA (08:10)
[2021-08-28] MEDS ORDERED: SODIUM CHLORIDE 0.9% 1,000 ML IV STA (08:10)
[2021-08-28] MEDS ORDERED: KETOROLAC 15 MG/ML 1 ML VIAL IVP STA (08:10)
--- NOTE | 2021-08-28 08:10 | ED ---
Abdominal Pain HPI - General Chief Complaint: Abdominal Pain Stated Complaint: abd pain Time Seen by Provider: 08/28/21 07:52 Source: patient, RN notes reviewed Mode of arrival: wheelchair Limitations: no limitations - History of Present Illness Initial Comments: Patient is 56-year-old male presented to ED for abdominal pain. Patient states the pain started this morning at 6:00am with diffuse pain over right and left upper quadrant. Patient states there is also flank tenderness and pain bilaterally. Patient has reported pain nausea and vomiting, but denies cough congestion weakness fatigue any changes in oral intake bowel movements or urination. Patient states he was also feeling a prior with no sick contacts at this time. Patient reports having no history of kidney stones or UTI symptoms in past. - Related Data Home Medications Medication Instructions Recorded Confirmed Atorvastatin [Lipitor] 20 mg PO TUFR 12/27/18 08/28/21 Ezetimibe [Zetia] 10 mg PO DAILY 12/27/18 08/28/21 Multivitamins, Thera [Multivitamin 1 tab PO DAILY 12/27/18 08/28/21 (formulary)] Ubidecarenone [Co Q-10] 200 mg PO DAILY 12/27/18 08/28/21 Allergies Allergy/AdvReac Type Severity Reaction Status Date / Time adhesive tape Allergy Rash/Hives Verified 08/28/21 08:36 Review of Systems ROS Statement: Those systems with pertinent positive or pertinent negative responses have been documented in the HPI. ROS Other: All systems not noted in ROS Statement are negative. Past Medical History Past Medical History: Hyperlipidemia Additional Past Medical History / Comment(s): seizure with a fever as , History of Any Multi-Drug Resistant Organisms: None Reported Past Surgical History: Hernia Repair Additional Past Surgical History / Comment(s): fatty "tissue" removed from buttock, colonoscopy Past Anesthesia/Blood Transfusion Reactions: No Reported Reaction Past Psychological History: No Psychological Hx Reported Smoking Status: Current every day smoker Past Alcohol Use History: Rare Past Drug Use History: None Reported - Past Family History Father Family Medical History: Cancer Mother Family Medical History: COPD General Exam Limitations: no limitations General appearance: alert, in no apparent distress Respiratory exam: Present: normal lung sounds bilaterally. Absent: respiratory distress, wheezes, rales, rhonchi, stridor Cardiovascular Exam: Present: regular rate, normal rhythm, normal heart sounds. Absent: systolic murmur, diastolic murmur, rubs, gallop, clicks GI/Abdominal exam: Present: tenderness, guarding, rigid, normal bowel sounds Back exam: Present: CVA tenderness (R), CVA tenderness (L) Neurological exam: Present: alert, oriented X3 Skin exam: Present: warm, dry, intact, normal color. Absent: rash Course Vital Signs 08/28/21 08/28/21 07:49 09:09 Temperature 97.8 F Pulse Rate 75 Respiratory 18 18 Rate Blood Pressure 114/82 137/88 O2 Sat by Pulse 97 Oximetry Medical Decision Making - Medical Decision Making CT shows evidence of small bowel obstruction. Patient will have NG tube placed. NG tube placed by RN. Patient be admitted to Dr. Laguna. Patient updated on results. - Lab Data Result diagrams: 08/28/21 08:45 08/28/21 08:45 Lab Results 08/28/21 08/28/21 08/28/21 Range/Units 08:45 08:45 08:45 WBC 15.6 H (3.8-10.6) k/uL RBC 5.20 (4.30-5.90) m/uL Hgb 17.8 H (13.0-17.5) gm/dL Hct 50.8 (39.0-53.0) % MCV 97.8 (80.0-100.0) fL MCH 34.2 (25.0-35.0) pg MCHC 34.9 (31.0-37.0) g/dL RDW 13.0 (11.5-15.5) % Plt Count 305 (150-450) k/uL MPV 7.9 Neutrophils % 86 % Lymphocytes % 9 % Monocytes % 3 % Eosinophils % 1 % Basophils % 1 % Neutrophils # 13.4 H (1.3-7.7) k/uL Lymphocytes # 1.5 (1.0-4.8) k/uL Monocytes # 0.4 (0-1.0) k/uL Eosinophils # 0.1 (0-0.7) k/uL Basophils # 0.1 (0-0.2) k/uL Sodium 138 (137-145) mmol/L Potassium 4.7 (3.5-5.1) mmol/L Chloride 102 (98-107) mmol/L Carbon Dioxide 25 (22-30) mmol/L Anion Gap 11 mmol/L BUN 17 (9-20) mg/dL Creatinine 0.95 (0.66-1.25) mg/dL Est GFR (CKD-EPI)AfAm >90 (>60 ml/min/1.73 sqM) Est GFR (CKD-EPI)NonAf 88 (>60 ml/min/1.73 sqM) Glucose 156 H (74-99) mg/dL Plasma Lactic Acid Nick 1.1 (0.7-2.0) mmol/L Calcium 10.6 H (8.4-10.2) mg/dL Total Bilirubin 0.6 (0.2-1.3) mg/dL AST 27 (17-59) U/L ALT 18 (4-49) U/L Alkaline Phosphatase 95 (38-126) U/L Total Protein 8.3 H (6.3-8.2) g/dL Albumin 4.6 (3.5-5.0) g/dL Lipase 55 (23-300) U/L Disposition Clinical Impression: SBO (small bowel obstruction) Disposition: ADMITTED IP TO THIS [facility] Condition: Fair Referrals: Kimberley Vieira DO [Primary Care Provider] - 1-2 days
[2021-08-28 09:15] LABS: Basophils # (A) 0.1 k/uL (0-0.2); Basophils % (A) 1 %; Eosinophils # (A) 0.1 k/uL (0-0.7); Eosinophils % (A) 1 %; HCT 50.8 % (39.0-53.0); HGB 17.8 gm/dL (13.0-17.5); Lymphocytes # (A) 1.5 k/uL (1.0-4.8); Lymphocytes % (A) 9 %; MCH 34.2 pg (25.0-35.0); MCHC 34.9 g/dL (31.0-37.0); MCV 97.8 fL (80.0-100.0); Mean Platelet Volume 7.9; Monocytes # (A) 0.4 k/uL (0-1.0); Monocytes % (A) 3 %; Neutrophils # (A) 13.4 k/uL (1.3-7.7); Neutrophils % (A) 86 %; Platelet Count 305 k/uL (150-450); WBC 15.6 k/uL (3.8-10.6)
[2021-08-28 09:16] LABS: ALT 18 U/L (4-49); AST 27 U/L (17-59); African American GFR (CKD) >90 (>60 ml/min/1.73 sqM); Albumin 4.6 g/dL (3.5-5.0); Alkaline Phosphatase 95 U/L (38-126); Anion Gap 11 mmol/L; Blood Urea Nitrogen 17 mg/dL (9-20); Calcium 10.6 mg/dL (8.4-10.2); Carbon Dioxide 25 mmol/L (22-30); Chloride 102 mmol/L (98-107); Glucose 156 mg/dL (74-99); Lipase 55 U/L (23-300); Non-African American GFR(CKD) 88 (>60 ml/min/1.73 sqM); Potassium 4.7 mmol/L (3.5-5.1); Sodium 138 mmol/L (137-145); Total Bilirubin 0.6 mg/dL (0.2-1.3); Total Protein 8.3 g/dL (6.3-8.2)
--- NOTE | 2021-08-28 09:34 | CT ---
EXAMINATION TYPE: CT abdomen pelvis w con DATE OF EXAM: 08/28/2021 COMPARISON: 03/02/2019 HISTORY: pain, nausea and vomiting CT DLP: 586.5 mGycm CONTRAST: CT scan of the abdomen and pelvis is performed without Oral Contrast and with IV Contrast, patient in jected with 100 mL of Isovue 300. FINDINGS: LUNG BASES-: No visible nodule. No infiltrate. LIVER/GB: No calcified gallstones. No space occupying hepatic lesion. Biliary tree is of normal ca liber. PANCREAS: No inflammation. No distinct mass. SPLEEN: No splenic enlargement. No lesion seen. ADRENALS: No nodule. No thickening. KIDNEYS/BLADDER: No hydronephrosis. No nephrolithiasis. No distinct renal mass. Urinary bladder g rossly unremarkable. BOWEL: Normal appendix. Dilated loops of small bowel measuring up to 3.5 cm with transition noted wit hin the right lower quadrant. Air and fecal debris seen within the large bowel. No free air or absces s identified. GENITAL ORGANS: No gross abnormality. LYMPH NODES: No greater than 1cm abdominal or pelvic lymph nodes are appreciated. AORTA: No significant abnormality. OSSEOUS STRUCTURES: No significant abnormality is seen. OTHER: No significant additional abnormality is seen. IMPRESSION: 1. Small bowel obstruction with distal transition suspected.
[2021-08-28] MEDS ORDERED: HYDROmorphone 1 MG/ML 1 ML SYRINGE IVP STA (09:48)
[2021-08-28] MEDS ORDERED: NALOXONE 0.4 MG/ML 1 ML VIAL IV PRN (09:54)
[2021-08-28] MEDS ORDERED: PIPERACILLIN-TAZOBACTAM 3.375 GM in SODIUM CHLORIDE 0.9% 100 ML IVPB STA (10:25)
[2021-08-28] MEDS: SODIUM CHLORIDE 0.9% 1,000 ML IV SCH (10:41)
--- NOTE | 2021-08-28 11:32 | XR ---
EXAMINATION TYPE: XR abdomen 1V DATE OF EXAM: 08/28/2021 COMPARISON: NONE HISTORY: Pain TECHNIQUE: Single supine KUB image of the abdomen is obtained FINDINGS: NG tube is seen within the stomach. Dilated small bowel noted measuring up to 4 cm. No convincing evidence for pneumoperitoneum. No unusual calcifications. The lung bases are clear. The osseous structures are intact. IMPRESSION: 1. Small bowel obstruction.
[2021-08-28] MEDS: HYDROmorphone 1 MG/ML 1 ML SYRINGE IVP PRN ×2 (15:56→19:28)
[2021-08-28 16:10] LABS: Appearance,Urine Clear (Clear); Bilirubin,Urine Negative (Negative); Blood,Urine Negative (Negative); Color,Urine Yellow; Glucose,Urine (UA) Negative (Negative); Ketones,Urine 1+ (Negative); Leukocyte Esterase,Urine Negative (Negative); Mucus,Urine Occasional /hpf; Nitrite,Urine Negative (Negative); Protein,Urine 1+ (Negative); RBC,Urine 1 /hpf (0-5); Squamous Epithelial Cell,Urine <1 /hpf (0-4); Urobilinogen,Urine <2.0 mg/dL (<2.0); WBC,Urine 1 /hpf (0-5)
[2021-08-28 16:13] LABS: Specific Gravity,Urine >1.050 (1.001-1.035)
[2021-08-28] MEDS: ONDANSETRON 4 MG/2 ML VIAL IVP PRN (19:28)
[2021-08-28] MEDS: PIPERACILLIN-TAZOBACTAM 3.375 GM in SODIUM CHLORIDE 0.9% 100 ML IVPB SCH (19:30)
[2021-08-29] MEDS: HYDROmorphone 1 MG/ML 1 ML SYRINGE IVP PRN ×4 (00:03→09:24)
[2021-08-29] MEDS: SODIUM CHLORIDE 0.9% 1,000 ML IV SCH ×2 (00:05→12:48)
[2021-08-29] MEDS: PIPERACILLIN-TAZOBACTAM 3.375 GM in SODIUM CHLORIDE 0.9% 100 ML IVPB SCH ×3 (05:16→20:26)
[2021-08-29] MEDS: ONDANSETRON 4 MG/2 ML VIAL IVP PRN ×2 (08:04→16:59)
[2021-08-29 09:58] LABS: African American GFR (CKD) >90 (>60 ml/min/1.73 sqM); Anion Gap 7 mmol/L; Blood Urea Nitrogen 13 mg/dL (9-20); Calcium 9.3 mg/dL (8.4-10.2); Carbon Dioxide 28 mmol/L (22-30); Chloride 105 mmol/L (98-107); Glucose 115 mg/dL (74-99); Non-African American GFR(CKD) >90 (>60 ml/min/1.73 sqM); Potassium 4.5 mmol/L (3.5-5.1); Sodium 140 mmol/L (137-145)
[2021-08-29 10:12] LABS: Basophils % (A) 0 %; Eosinophils % (A) 0 %; HCT 47.6 % (39.0-53.0); Lymphocytes # (A) 0.8 k/uL (1.0-4.8); Lymphocytes % (A) 9 %; MCH 33.7 pg (25.0-35.0); MCHC 33.6 g/dL (31.0-37.0); MCV 100.3 fL (80.0-100.0); Monocytes # (A) 0.5 k/uL (0-1.0); Monocytes % (A) 6 %; Neutrophils # (A) 6.8 k/uL (1.3-7.7); Neutrophils % (A) 84 %; Platelet Count 271 k/uL (150-450); RBC 4.74 m/uL (4.30-5.90); RDW 13.1 % (11.5-15.5); WBC 8.2 k/uL (3.8-10.6)
--- NOTE | 2021-08-29 12:17 | P.GSHP ---
History of Present Illness H&P Date: 08/29/21 CHIEF COMPLAINT: Abdominal pain HISTORY OF PRESENT ILLNESS: This is a 56-year-old male presents to the hospital with complaints of abdominal pain for 2 days. He complains mostly of a diffuse abdominal pain. He reports being more distended when he presented to the hospital. He had an episode of vomiting on Sunday. His last bowel movement was small and on Sunday. He reports that since Sunday he has had no further bowel movements and no flatus. Patient's CAT scan showed evidence of small bowel obstruction he had NG tube placed. He reports improvement in his abdominal distention and pain since placement of NG tube. Denies any fever chills or sweats. PAST MEDICAL HISTORY: Hyperlipidemia PAST SURGICAL HISTORY: Hernia repair, sigmoid colon perforation status post laparoscopic colorrhaphy 2019, exploratory laparotomy with pelvic washout, MEDICATIONS: See list. ALLERGIES: See list. SOCIAL HISTORY: No illicit drug use. Smoker REVIEW OF SYSTEMS: CONSTITUTIONAL: Denies fever or chills. HEENT: Denies blurred vision, vision changes, or eye pain. Denies hemoptysis CARDIOVASCULAR: Denies chest pain or pressure. RESPIRATORY: No shortness of breath. GASTROINTESTINAL: See HPI for pertinent findings HEMATOLOGIC: Denies bleeding disorders. GENITOURINARY: Denies any blood in urine or increased urinary frequency. SKIN: Denies pruitis. Denies rash. PHYSICAL EXAM: VITAL SIGNS: Reviewed GENERAL: Well-developed in no acute distress. HEENT: No sclera icterus. Extraocular movements grossly intact. Moist buccal mucosa. Head is atraumatic, normocephalic. No nasal drainage. ABDOMEN: Soft. Nondistended. Nontender patient received pain medication prior to exam. NG tube with dark green output NEUROLOGIC: Alert and oriented. Cranial nerves II through XII grossly intact. LABORATORY DATA: WBC 15.6 on 8.2 hemoglobin 16 platelets 271 Sodium 140 potassium 4.5 BUN 13 creatinine 0.87 Urinalysis negative for infection COVID-19 not detected IMAGING: Computed tomography scan abdomen and pelvis with IV contrast shows small bowel obstruction with distal transition suspected ASSESSMENT: 1. Small bowel obstruction with transition point noted within the right lower q uadrant PLAN: -Continue NG tube for decompression -Keep patient nothing by mouth -Continue IV fluids -Continue antiemetics -Continue pain medication as needed -GI prophylaxis Protonix and DVT prophylaxis subcu heparin Physician Coil Winder note has been reviewed by physician. Signing provider agrees with the documented findings, assessment, and plan of care. Past Medical History Past Medical History: Hyperlipidemia Additional Past Medical History / Comment(s): seizure with a fever as , History of Any Multi-Drug Resistant Organisms: None Reported Past Surgical History: Hernia Repair Additional Past Surgical History / Comment(s): fatty "tissue" removed from buttock, colonoscopy Past Anesthesia/Blood Transfusion Reactions: No Reported Reaction Past Psychological History: No Psychological Hx Reported Smoking Status: Current every day smoker Past Alcohol Use History: Rare Additional Past Alcohol Use History / Comment(s): smokes > 1 PPD, has smoked since age 17 Past Drug Use History: None Reported - Past Family History Father Family Medical History: Cancer Mother Family Medical History: COPD Medications and Allergies Home Medications Medication Instructions Recorded Confirmed Type Atorvastatin [Lipitor] 20 mg PO TUFR 12/27/18 08/28/21 History Ezetimibe [Zetia] 10 mg PO DAILY 12/27/18 08/28/21 History Multivitamins, Thera [Multivitamin 1 tab PO DAILY 12/27/18 08/28/21 History (formulary)] Ubidecarenone [Co Q-10] 200 mg PO DAILY 12/27/18 08/28/21 History Allergies Allergy/AdvReac Type Severity Reaction Status Date / Time adhesive tape Allergy Rash/Hives Verified 08/28/21 08:36 Surgical - Exam Vital Signs Temp Pulse Resp BP Pulse Ox 97.8 F 75 18 114/82 97 08/28/21 07:49 08/28/21 07:49 08/28/21 07:49 08/28/21 07:49 08/28/21 07:49 Results - Labs 08/29/21 09:00 08/29/21 09:00 Abnormal Lab Results - Last 24 Hours (Table) 08/28/21 08/29/21 08/29/21 Range/Units 15:39 09:00 09:00 MCV 100.3 H (80.0-100.0) fL Lymphocytes # 0.8 L (1.0-4.8) k/uL Glucose 115 H (74-99) mg/dL Ur Specific Dailey >1.050 H (1.001-1.035) Urine Protein 1+ H (Negative) Urine Ketones 1+ H (Negative) Urine Mucus Occasional H (None) /hpf Diabetes panel 08/29/21 Range/Units 09:00 Sodium 140 (137-145) mmol/L Potassium 4.5 (3.5-5.1) mmol/L Chloride 105 (98-107) mmol/L Carbon Dioxide 28 (22-30) mmol/L BUN 13 (9-20) mg/dL Creatinine 0.87 (0.66-1.25) mg/dL Glucose 115 H (74-99) mg/dL Calcium 9.3 (8.4-10.2) mg/dL Calcium panel 08/29/21 Range/Units 09:00 Calcium 9.3 (8.4-10.2) mg/dL Pituitary panel 08/29/21 Range/Units 09:00 Sodium 140 (137-145) mmol/L Potassium 4.5 (3.5-5.1) mmol/L Chloride 105 (98-107) mmol/L Carbon Dioxide 28 (22-30) mmol/L BUN 13 (9-20) mg/dL Creatinine 0.87 (0.66-1.25) mg/dL Glucose 115 H (74-99) mg/dL Calcium 9.3 (8.4-10.2) mg/dL Adrenal panel 08/29/21 Range/Units 09:00 Sodium 140 (137-145) mmol/L Potassium 4.5 (3.5-5.1) mmol/L Chloride 105 (98-107) mmol/L Carbon Dioxide 28 (22-30) mmol/L BUN 13 (9-20) mg/dL Creatinine 0.87 (0.66-1.25) mg/dL Glucose 115 H (74-99) mg/dL Calcium 9.3 (8.4-10.2) mg/dL
[2021-08-29] MEDS: PANTOPRAZOLE 40 MG/10 ML VIAL IVP SCH (12:46)
[2021-08-29] MEDS: HEPARIN SODIUM,PORCINE/PF 5,000 UNIT/0.5 ML SYRINGE SQ SCH ×2 (16:59→23:01)
--- NOTE | 2021-08-29 17:27 | XR ---
EXAMINATION TYPE: XR chest 1V portable DATE OF EXAM: 08/29/2021 COMPARISON: 12/30/2018 HISTORY: Cough TECHNIQUE: 2 views FINDINGS: There is some coarse linear density in the lower lung mcgee consistent with mild infiltrat e or atelectasis. There is no heart failure. Heart size is normal. There is no pleural effusion. Ther e is nasogastric tube in the stomach. IMPRESSION: There is some mild linear infiltrates and atelectasis in the lower lung mcgee similar to old exam. No heart failure. There is clearing of the pneumoperitoneum compared to old exam.
[2021-08-29] MEDS: HYDROmorphone 0.5 MG/0.5 ML SYRINGE IVP PRN (17:58)
[2021-08-30] MEDS: SODIUM CHLORIDE 0.9% 1,000 ML IV SCH ×2 (03:22→20:08)
[2021-08-30] MEDS: HYDROmorphone 0.5 MG/0.5 ML SYRINGE IVP PRN ×4 (03:31→19:10)
[2021-08-30] MEDS: PIPERACILLIN-TAZOBACTAM 3.375 GM in SODIUM CHLORIDE 0.9% 100 ML IVPB SCH ×3 (03:32→19:11)
[2021-08-30] MEDS ORDERED: ONDANSETRON 4 MG/2 ML VIAL IVP ONE (06:18)
[2021-08-30] MEDS ORDERED: DEXAMETHASONE SOD PHOSPHATE 4 MG/ML 1 ML VIAL IV ONE (06:18)
[2021-08-30] MEDS ORDERED: LIDOCAINE 1% (10MG/ML) FOR IV START INTRADERMA PRN (06:18)
[2021-08-30 06:51] LABS: Basophils % (A) 0 %; Eosinophils % (A) 1 %; HCT 42.2 % (39.0-53.0); HGB 13.9 gm/dL (13.0-17.5); Lymphocytes # (A) 1.1 k/uL (1.0-4.8); Lymphocytes % (A) 24 %; MCH 33.3 pg (25.0-35.0); MCHC 32.9 g/dL (31.0-37.0); MCV 101.2 fL (80.0-100.0); Mean Platelet Volume 7.8; Monocytes # (A) 0.4 k/uL (0-1.0); Monocytes % (A) 9 %; Neutrophils % (A) 64 %; Platelet Count 222 k/uL (150-450); RBC 4.17 m/uL (4.30-5.90); RDW 12.3 % (11.5-15.5); WBC 4.6 k/uL (3.8-10.6)
[2021-08-30 07:03] LABS: African American GFR (CKD) >90 (>60 ml/min/1.73 sqM); Anion Gap 6 mmol/L; Blood Urea Nitrogen 15 mg/dL (9-20); Calcium 8.9 mg/dL (8.4-10.2); Carbon Dioxide 28 mmol/L (22-30); Chloride 105 mmol/L (98-107); Glucose 105 mg/dL (74-99); Non-African American GFR(CKD) >90 (>60 ml/min/1.73 sqM); Potassium 4.1 mmol/L (3.5-5.1); Sodium 139 mmol/L (137-145)
[2021-08-30] MEDS: HEPARIN SODIUM,PORCINE/PF 5,000 UNIT/0.5 ML SYRINGE SQ SCH ×3 (09:46→23:40)
[2021-08-30] MEDS: PANTOPRAZOLE 40 MG/10 ML VIAL IVP SCH (09:50)
[2021-08-30] MEDS: LACTATED RINGERS 1,000 ML IV SCH ×3 (09:51→20:09)
[2021-08-30] MEDS: ONDANSETRON 4 MG/2 ML VIAL IVP PRN ×2 (13:39→17:33)
[2021-08-30] MEDS ORDERED: IV FLUID CONTINUATION 1,000 ML IV ONE (15:53)
[2021-08-30 16:10] LABS: Glucose,Whole Blood 103 mg/dL (75-99)
[2021-08-30] MEDS ORDERED: LIDOCAINE 1% INJ 10MG/ML (20 ML MDV) ONE (16:24)
[2021-08-30] MEDS ORDERED: HYDROmorphone (PF) 1 MG/ML ONE (16:24)
[2021-08-30] MEDS ORDERED: ROCURONIUM 10 MG/ML (5 ML VIAL) IV ONE (16:24)
[2021-08-30] MEDS ORDERED: NEOSTIGMINE 1 MG/ML 10 ML VIAL ONE (16:24)
[2021-08-30] MEDS ORDERED: MIDAZOLAM 2 MG/2 ML VIAL ONE (16:24)
[2021-08-30] MEDS ORDERED: SUCCINYLCHOLINE CHLORIDE 100 MG/5 ML SYR IV ONE (16:24)
[2021-08-30] MEDS ORDERED: fentaNYL (PF) 50 MCG/ML 2 ML AMP ONE (16:24)
[2021-08-30] MEDS ORDERED: PROPOFOL 10 MG/ML 20 ML VIAL IV ONE (16:24)
[2021-08-30] MEDS ORDERED: GLYCOPYRROLATE 0.2 MG/ML 2 ML VIAL ONE (16:24)
[2021-08-30] MEDS ORDERED: HEPARIN SODIUM,PORCINE 5,000 UNIT/ML 1 ML VIAL SQ ONE (16:25)
[2021-08-30] MEDS ORDERED: HYDROmorphone 1 MG/ML 1 ML SYRINGE IVP PRN (17:14)
--- NOTE | 2021-08-30 17:14 | P.OP ---
Date of Procedure: 08/30/21 Preoperative Diagnosis: Small bowel structure and Postoperative Diagnosis: Small bowel obstruction secondary to internal hernia Procedure(s) Performed: Exploratory laparotomy lysis of adhesion repair of internal hernia Anesthesia: MAC Surgeon: Yon Laguna Estimated Blood Loss (ml): 10 Pathology: none sent Condition: stable Disposition: PACU Description of Procedure: The patient's placed on the operative table in the supine position. He received general endotracheal tube anesthesia. His abdomen was prepped and draped using sterile fashion. The skin was incised in midline. Using left cautery the subcutaneous tissue divided. The fascial the midline. The Bookwalter S chlesselman. The small bowel was quite dilated. The small bowel was run. There appeared to be an internal hernia of the small bowel. The small bowel was rotated around adhesive band. The band was lysed. The hernia was rotated in a fashion to relieve the bowel obstruction. The bowel was then run from the Treitz to the terminal ileum. There is known to any other obstruction. The abdomen. The shelving seen. The fascia was closed with looped #1 PDS suture. Skin was closed lauryn. Patient tolerated the procedure well will was sent to recovery in stable condition
[2021-08-30] MEDS: HYDROmorphone 1 MG/ML 1 ML SYRINGE IVP PRN (22:08)
[2021-08-31] MEDS: HYDROmorphone 1 MG/ML 1 ML SYRINGE IVP PRN ×7 (02:20→23:59)
[2021-08-31] MEDS: PIPERACILLIN-TAZOBACTAM 3.375 GM in SODIUM CHLORIDE 0.9% 100 ML IVPB SCH ×3 (04:33→19:49)
[2021-08-31] MEDS: SODIUM CHLORIDE 0.9% 1,000 ML IV SCH ×2 (04:35→16:18)
[2021-08-31] MEDS: PANTOPRAZOLE 40 MG/10 ML VIAL IVP SCH (08:47)
[2021-08-31] MEDS: ENOXAPARIN 40 MG/0.4 ML SYRINGE SQ SCH (08:48)
[2021-08-31 09:29] LABS: Basophils % (A) 0 %; Eosinophils # (A) 0.1 k/uL (0-0.7); Eosinophils % (A) 1 %; HCT 45.2 % (39.0-53.0); HGB 14.9 gm/dL (13.0-17.5); Lymphocytes # (A) 0.9 k/uL (1.0-4.8); Lymphocytes % (A) 16 %; MCH 33.4 pg (25.0-35.0); MCHC 32.9 g/dL (31.0-37.0); MCV 101.6 fL (80.0-100.0); Mean Platelet Volume 7.7; Monocytes # (A) 0.4 k/uL (0-1.0); Monocytes % (A) 6 %; Neutrophils # (A) 4.3 k/uL (1.3-7.7); Neutrophils % (A) 75 %; Platelet Count 218 k/uL (150-450); RBC 4.45 m/uL (4.30-5.90); RDW 12.3 % (11.5-15.5); WBC 5.7 k/uL (3.8-10.6)
[2021-08-31 09:38] LABS: African American GFR (CKD) >90 (>60 ml/min/1.73 sqM); Anion Gap 6 mmol/L; Blood Urea Nitrogen 13 mg/dL (9-20); Calcium 8.5 mg/dL (8.4-10.2); Carbon Dioxide 30 mmol/L (22-30); Chloride 103 mmol/L (98-107); Glucose 104 mg/dL (74-99); Non-African American GFR(CKD) >90 (>60 ml/min/1.73 sqM); Potassium 3.9 mmol/L (3.5-5.1); Sodium 139 mmol/L (137-145)
--- NOTE | 2021-08-31 12:22 | P.PN ---
Subjective Progress Note Date: 08/31/21 CHIEF COMPLAINT: Abdominal pain HISTORY OF PRESENT ILLNESS: Patient is status post exploratory laparotomy lysis of adhesions and repair of internal hernia for small bowel obstruction secondary to internal hernia. Postop day 1. Patient reports that his pain is controlled. He denies any flatus or BM. Denies any nausea. Has NG tube in place. Currently nothing by mouth. Afebrile. WBC 5.7 hemoglobin 14.9 creatinine 0.81 PHYSICAL EXAM: VITAL SIGNS: Reviewed. GENERAL: Well-developed in no acute distress. HEENT: No sclera icterus. Extraocular movements grossly intact. Moist buccal mucosa. Head is atraumatic, normocephalic. ABDOMEN: Soft. Nondistended. Few areas of blood saturation noted on incisional dressing NEUROLOGIC: Alert and oriented. Cranial nerves II through XII grossly intact. ASSESSMENT: 1. Small bowel section secondary to internal hernia status post exploratory laparotomy, lysis of adhesions and repair of internal hernia PLAN: -Continue NG tube for decompression -Continue pain medication as needed -Discontinue Sánchez catheter -Encourage patient to increase activity -Encourage patient to use incentive spirometer -GI prophylaxis Protonix and DVT prophylaxis subcu Lovenox Physician Financial Institution Manager note has been reviewed by physician. Signing provider agrees with the documented findings, assessment, and plan of care. Objective - Vital Signs Vital signs: Vital Signs Temp 98.4 F 08/31/21 04:38 Pulse 83 08/31/21 04:38 Resp 16 08/31/21 04:38 BP 122/81 08/31/21 04:38 Pulse Ox 97 08/31/21 04:38 Intake & Output 08/30/21 08/31/21 08/31/21 18:59 06:59 18:59 Intake Total 1305 1000 Output Total 1110 500 Balance 195 500 Intake: IV 1225 1000 Piperacillin-Tazobactam 3 100 100 .375 gm In Sodium Chloride 0.9% 100 ml @ 25 mls/hr IVPB Q8H KATHY Rx#: [id number] Sodium Chloride 0.9% 1, 150 900 000 ml @ 75 mls/hr IV . [id number] KATHY Rx#:[id number] Intake, IV Titration 80 Amount Lactated Ringers 1,000 ml 80 @ 20 mls/hr IV .Q24H KATHY Rx#:[id number] Oral 0 0 Output: Gastric Drainage 650 Urine 450 500 Uretheral (Sánchez) 500 Estimated Blood Loss 10 Other: Voiding Method Urinal Indwelling Catheter # Voids 2 - Labs CBC & Chem 7: 08/31/21 09:09 08/31/21 09:09 Labs: Abnormal Lab Results - Last 24 Hours (Table) 08/30/21 08/31/21 08/31/21 Range/Units 16:09 09:09 09:09 MCV 101.6 H (80.0-100.0) fL Lymphocytes # 0.9 L (1.0-4.8) k/uL Glucose 104 H (74-99) mg/dL POC Glucose (mg/dL) 103 H (75-99) mg/dL
[2021-08-31] MEDS: LACTATED RINGERS 1,000 ML IV SCH (14:38)
[2021-09-01] MEDS: ONDANSETRON 4 MG/2 ML VIAL IVP PRN (00:01)
[2021-09-01] MEDS: HYDROmorphone 1 MG/ML 1 ML SYRINGE IVP PRN ×6 (03:06→22:52)
[2021-09-01] MEDS: SODIUM CHLORIDE 0.9% 1,000 ML IV SCH ×2 (03:10→15:47)
[2021-09-01] MEDS: PIPERACILLIN-TAZOBACTAM 3.375 GM in SODIUM CHLORIDE 0.9% 100 ML IVPB SCH ×2 (04:53→11:38)
[2021-09-01] MEDS: LACTATED RINGERS 1,000 ML IV SCH ×2 (04:54→15:20)
[2021-09-01] MEDS: ENOXAPARIN 40 MG/0.4 ML SYRINGE SQ SCH (07:33)
[2021-09-01] MEDS: PANTOPRAZOLE 40 MG/10 ML VIAL IVP SCH (08:27)
--- NOTE | 2021-09-01 15:01 | P.PN ---
Subjective Progress Note Date: 09/01/21 CHIEF COMPLAINT: Abdominal pain HISTORY OF PRESENT ILLNESS: Patient is status post exploratory laparotomy lysis of adhesions and repair of internal hernia for small bowel obstruction secondary to internal hernia. Postop day #2. Patient denies any pain. Denies any nausea or vomiting. Denies any flatus or BM. He has been up and ambulating. He started clear liquids this afternoon. Afebrile PHYSICAL EXAM: VITAL SIGNS: Reviewed. GENERAL: Well-developed in no acute distress. HEENT: No sclera icterus. Extraocular movements grossly intact. Moist buccal mucosa. Head is atraumatic, normocephalic. ABDOMEN: Soft. Nondistended. Few areas of blood saturation noted on incisional dressing NEUROLOGIC: Alert and oriented. Cranial nerves II through XII grossly intact. ASSESSMENT: 1. Small bowel section secondary to internal hernia status post exploratory laparotomy, lysis of adhesions and repair of internal hernia PLAN: -Start clear liquid diet -Anticipate discharge tomorrow if patient has flatus or BM -Encourage patient to increase activity -Encourage patient to use incentive spirometer -GI prophylaxis Protonix and DVT prophylaxis subcu Lovenox Physician Development Coach note has been reviewed by physician. Signing provider agrees with the documented findings, assessment, and plan of care. Objective - Vital Signs Vital signs: Vital Signs Temp 99.4 F 09/01/21 12:29 Pulse 84 09/01/21 12:29 Resp 17 09/01/21 12:29 BP 128/75 09/01/21 12:29 Pulse Ox 98 09/01/21 12:29 Intake & Output 08/31/21 09/01/21 09/01/21 18:59 06:59 18:59 Intake Total 1000 1310 Output Total 850 Balance 150 1310 Intake: IV 1000 900 Piperacillin-Tazobactam 3 100 .375 gm In Sodium Chloride 0.9% 100 ml @ 25 mls/hr IVPB Q8H KATHY Rx#: [id number] Sodium Chloride 0.9% 1, 900 900 000 ml @ 75 mls/hr IV . [id number] KATHY Rx#:[id number] Oral 410 Output: Urine 850 Other: Voiding Method Indwelling Catheter Toilet Toilet # Voids 1 2 - Labs CBC & Chem 7: 08/31/21 09:09 08/31/21 09:09
--- NOTE | 2021-09-01 16:17 | P.PN ---
Subjective Progress Note Date: 08/31/21 This is a 56-year-old gentleman admitted with small bowel obstruction secondary to internal hernia status post exploratory laparotomy, lysis of adhesions and repair. Tolerated procedure well. Maintained on IV fluid hydration. Complains of gas discomfort, pain controlled. Reports no flatus. Afebrile, normal WBC. Hemoglobin 14.9, platelets 218. Electrolytes and renal function stable. Objective - Vital Signs Vital signs: Vital Signs Temp 98.6 F 08/31/21 11:51 Pulse 81 08/31/21 11:51 Resp 16 08/31/21 11:51 BP 120/70 08/31/21 11:51 Pulse Ox 95 08/31/21 11:51 Intake & Output 08/30/21 08/31/21 08/31/21 18:59 06:59 18:59 Intake Total 1305 1000 1000 Output Total 1110 500 850 Balance 195 500 150 Intake: IV 1225 1000 1000 Piperacillin-Tazobactam 3 100 100 100 .375 gm In Sodium Chloride 0.9% 100 ml @ 25 mls/hr IVPB Q8H KATHY Rx#: [id number] Sodium Chloride 0.9% 1, 150 900 900 000 ml @ 75 mls/hr IV . [id number] KATHY Rx#:[id number] Intake, IV Titration 80 Amount Lactated Ringers 1,000 ml 80 @ 20 mls/hr IV .Q24H KATHY Rx#:[id number] Oral 0 0 Output: Gastric Drainage 650 Urine 450 500 850 Uretheral (Sánchez) 500 Estimated Blood Loss 10 Other: Voiding Method Urinal Indwelling Catheter # Voids 2 1 - Exam - Exam General: Alert and oriented 3, no acute distress HEENT: normocephalic and atraumatic. NG tube present. Neck:supple no JVD Chest: CTA bilaterally, no crackles no wheezing Cardiac exam reveals regular heart sounds S1 and S2 no gallops no murmurs Abdomen is soft, status post surgery, nondistended, shadowing on dressing Extremities: no edema, cyanosis or clubbing. Neurologic: CN II through XII grossly intact, no focal deficits - Labs CBC & Chem 7: 08/31/21 09:09 08/31/21 09:09 Labs: Abnormal Lab Results - Last 24 Hours (Table) 08/31/21 08/31/21 Range/Units 09:09 09:09 MCV 101.6 H (80.0-100.0) fL Lymphocytes # 0.9 L (1.0-4.8) k/uL Glucose 104 H (74-99) mg/dL Assessment and Plan Assessment: Small bowel obstruction secondary to internal hernia, status post exploratory laparotomy, lysis of adhesions and repair Hyperlipidemia Ongoing nicotine dependence Plan: Continue on current medication regime ,monitoring and symptomatic treatment. Maintain IV fluids. Decompression/NG tube/pain management as per surgery. Increase ambulation as tolerated. Aggressive pulmonary toileting, incentive spirometer ordered. The impression and plan of care has been dictated as directed. : I performed a history and examination of this patient, discussed the same with the dictator. I agree with the dictator's note ,documented as a scribe. Any additional findings or plans will be noted.
[2021-09-01] MEDS ORDERED: IPRATROPIUM-ALBUTEROL 3 ML NEB INHALATION PRN (16:26)
--- NOTE | 2021-09-01 16:29 | P.PN ---
Subjective Progress Note Date: 09/01/21 This is a 56-year-old gentleman admitted with small bowel obstruction secondary to internal hernia status post exploratory laparotomy, lysis of adhesions and repair. Tolerated procedure well. Maintained on IV fluid hydration. Complains of gas discomfort, pain controlled. Reports no flatus. Afebrile, normal WBC. Hemoglobin 14.9, platelets 218. Electrolytes and renal function stable. 09/01/2021 NG tube discontinued yesterday, clear liquid diet ordered for lunchtime. Ambulating, tolerating exertion well. Denies lightheadedness dizziness or focal deficits. Denies chest pain, palpitations or shortness of breath. Denies nausea vomiting or diarrhea. Denies flatus or bowel movement. T-max 99.4. Maintaining O2 sats in the high 90s on 3 L nasal cannula. Objective - Vital Signs Vital signs: Vital Signs Temp 99.4 F 09/01/21 12:29 Pulse 84 09/01/21 12:29 Resp 17 09/01/21 12:29 BP 128/75 09/01/21 12:29 Pulse Ox 98 09/01/21 12:29 Intake & Output 08/31/21 09/01/21 09/01/21 18:59 06:59 18:59 Intake Total 1000 1310 Output Total 850 Balance 150 1310 Intake: IV 1000 900 Piperacillin-Tazobactam 3 100 .375 gm In Sodium Chloride 0.9% 100 ml @ 25 mls/hr IVPB Q8H KATHY Rx#: [id number] Sodium Chloride 0.9% 1, 900 900 000 ml @ 75 mls/hr IV . [id number] KATHY Rx#:[id number] Oral 410 Output: Urine 850 Other: Voiding Method Indwelling Catheter Toilet Toilet # Voids 1 2 - Exam - Exam General: Alert and oriented 3, no acute distress HEENT: normocephalic and atraumatic. NG tube present. Neck:supple no JVD Chest: CTA bilaterally, bilateral bases diminished. Cardiac exam reveals regular heart sounds S1 and S2 no gallops no murmurs Abdomen is soft, status post surgery, nondistended. Extremities: no edema, cyanosis or clubbing. Neurologic: CN II through XII grossly intact, no focal deficits - Labs CBC & Chem 7: 08/31/21 09:09 10/27/21 09:09 Assessment and Plan Assessment: Small bowel obstruction secondary to internal hernia, status post exploratory laparotomy, lysis of adhesions and repair Acute hypoxic respiratory failure, pre-and postop secondary to suspected atel ectasis, extensive nicotine dependence with suspected COPD. Hyperlipidemia Ongoing nicotine dependence Plan: Continue on current medication regime ,monitoring and symptomatic treatment. Diet advancement to begin this afternoon as per surgery. IV fluids. Nebulized bronchodilators and LABA ordered. Chest x-ray ordered. Increase ambulation as tolerated. Aggressive pulmonary toileting, incentive spirometer reinforced. Smoking cessation reinforced. The impression and plan of care has been dictated as directed. : I performed a history and examination of this patient, discussed the same with the dictator. I agree with the dictator's note ,documented as a scribe. Any additional findings or plans will be noted.
--- NOTE | 2021-09-01 17:28 | XR ---
EXAMINATION TYPE: XR chest 2V DATE OF EXAM: 09/01/2021 COMPARISON: 08/29/2021 HISTORY: Shortness of breath TECHNIQUE: Frontal and lateral views of the chest are obtained. FINDINGS: Scattered senescent parenchymal changes noted. There is basilar linear atelectasis with more patchy density right medial lung base which could refle ct developing infiltrate. Correlate clinically. There is evidence of pneumoperitoneum. Correlate for recent laparotomy. Otherwise A cannot exclude pe rforated viscus. Heart size is stable. Mediastinal structures are stable and grossly unremarkable. No evidence for hilar prominence. Degenerative changes dorsal spine. IMPRESSION: 1. There is evidence of pneumoperitoneum. Correlate for recent laparotomy. Otherwise A cannot exclude perforated viscus. 2.There is basilar linear atelectasis with more patchy density right medial lung base which could ref lect developing infiltrate. Correlate clinically.
[2021-09-01] MEDS: SYMBICORT 80-4.5 MCG INHALER INHALATION SCH (19:39)
[2021-09-01] MEDS: IPRATROPIUM-ALBUTEROL 3 ML NEB INHALATION SCH (19:39)
[2021-09-02] MEDS: ONDANSETRON 4 MG/2 ML VIAL IVP PRN ×2 (02:01→10:10)
[2021-09-02] MEDS: SODIUM CHLORIDE 0.9% 1,000 ML IV SCH (02:05)
[2021-09-02] MEDS: HYDROmorphone 1 MG/ML 1 ML SYRINGE IVP PRN ×4 (05:55→17:42)
[2021-09-02] MEDS: LACTATED RINGERS 1,000 ML IV SCH (07:28)
[2021-09-02] MEDS: PANTOPRAZOLE 40 MG/10 ML VIAL IVP SCH (08:08)
[2021-09-02] MEDS: ENOXAPARIN 40 MG/0.4 ML SYRINGE SQ SCH (08:08)
[2021-09-02] MEDS: IPRATROPIUM-ALBUTEROL 3 ML NEB INHALATION SCH ×4 (08:36→20:41)
[2021-09-02] MEDS: SYMBICORT 80-4.5 MCG INHALER INHALATION SCH ×2 (08:38→20:41)
[2021-09-02 09:26] LABS: Basophils % (A) 0 %; Eosinophils # (A) 0.2 k/uL (0-0.7); Eosinophils % (A) 4 %; HCT 44.6 % (39.0-53.0); HGB 14.6 gm/dL (13.0-17.5); Lymphocytes # (A) 0.7 k/uL (1.0-4.8); Lymphocytes % (A) 15 %; MCH 33.5 pg (25.0-35.0); MCHC 32.8 g/dL (31.0-37.0); MCV 102.2 fL (80.0-100.0); Mean Platelet Volume 7.9; Monocytes # (A) 0.4 k/uL (0-1.0); Monocytes % (A) 8 %; Neutrophils # (A) 3.3 k/uL (1.3-7.7); Neutrophils % (A) 71 %; Platelet Count 262 k/uL (150-450); RBC 4.36 m/uL (4.30-5.90); RDW 12.3 % (11.5-15.5); WBC 4.6 k/uL (3.8-10.6)
[2021-09-02 11:35] VITALS: BMI 26.9
[2021-09-02] MEDS ORDERED: HYDROcodone/APAP 5-325MG 1 EACH TAB PO PRN (13:32)
[2021-09-02] MEDS ORDERED: ACETAMINOPHEN TAB 325 MG TAB PO PRN (13:33)
--- NOTE | 2021-09-02 13:35 | P.PN ---
Subjective Progress Note Date: 09/02/21 CHIEF COMPLAINT: Abdominal pain HISTORY OF PRESENT ILLNESS: Patient is status post exploratory laparotomy lysis of adhesions and repair of internal hernia for small bowel obstruction secondary to internal hernia. Postop day #3. Patient is complaining of more nausea today. No actual vomiting. Denies any flatus or bowel movement. On clear liquid diet. Afebrile. WBC 4.6 Hgb 14.6 Patient seen and examined with Dr. liz PHYSICAL EXAM: VITAL SIGNS: Reviewed. GENERAL: Well-developed in no acute distress. HEENT: No sclera icterus. Extraocular movements grossly intact. Moist buccal mucosa. Head is atraumatic, normocephalic. ABDOMEN: Soft. Nondistended. NEUROLOGIC: Alert and oriented. Cranial nerves II through XII grossly intact. ASSESSMENT: 1. Small bowel section secondary to internal hernia status post exploratory laparotomy, lysis of adhesions and repair of internal hernia PLAN: -Continue clear liquid diet. Educated patient was slowly with the clear liquids -Continue antiemetics as needed -add norco for pain control -Encourage patient to increase activity -Encourage patient to use incentive spirometer -GI prophylaxis Protonix and DVT prophylaxis subcu Lovenox Physician Ply Splicer note has been reviewed by physician. Signing provider agrees with the documented findings, assessment, and plan of care. Objective - Vital Signs Vital signs: Vital Signs Temp 99.0 F 09/02/21 12:35 Pulse 87 09/02/21 12:35 Resp 20 09/02/21 12:35 BP 124/70 09/02/21 12:35 Pulse Ox 91 L 09/02/21 12:35 Intake & Output 09/01/21 09/02/21 09/02/21 18:59 06:59 18:59 Intake Total 900 900 Output Total 120 Balance 900 780 Weight 82.554 kg Intake: IV 900 900 Sodium Chloride 0.9% 1, 900 900 000 ml @ 75 mls/hr IV . [id number] [facility] Rx#:[id number] Output: Urine 120 Stool 0 Other: Voiding Method Toilet Urinal Toilet Urinal # Voids 2 1 # Bowel Movements 0 - Labs CBC & Chem 7: 09/02/21 09:07 08/31/21 09:09 Labs: Abnormal Lab Results - Last 24 Hours (Table) 09/02/21 Range/Units 09:07 MCV 102.2 H (80.0-100.0) fL Lymphocytes # 0.7 L (1.0-4.8) k/uL
--- NOTE | 2021-09-02 13:52 | P.PN ---
Subjective Progress Note Date: 09/02/21 This is a 56-year-old gentleman admitted with small bowel obstruction secondary to internal hernia status post exploratory laparotomy, lysis of adhesions and repair. Tolerated procedure well. Maintained on IV fluid hydration. Complains of gas discomfort, pain controlled. Reports no flatus. Afebrile, normal WBC. Hemoglobin 14.9, platelets 218. Electrolytes and renal function stable. 09/01/2021 NG tube discontinued yesterday, clear liquid diet ordered for lunchtime. Ambulating, tolerating exertion well. Denies lightheadedness dizziness or focal deficits. Denies chest pain, palpitations or shortness of breath. Denies nausea vomiting or diarrhea. Denies flatus or bowel movement. T-max 99.4. Maintaining O2 sats in the high 90s on 3 L nasal cannula. 09/02/2021 currently complaining of increased nausea on clear liquid diet. Complains of bloating sensation. Denies passing flatus, denies bowel movement. Chest x-ray completed yesterday afternoon reporting evidence of pneumoperitoneum , basilar linear atelectasis with mild patchy density right medial lung base which could reflect developing infiltrate. Denies cough. Currently maintaining O2 sats of mid 90s on room air. T-max 99.7, normal WBC. Hemoglobin 14.6, platelets 262. Reports he ambulated 3 times in the hallway yesterday, tolerated exertion well.denies chest pain, palpitations .denies lightheadedness,dizziness or focal deficits. Objective - Vital Signs Vital signs: Vital Signs Temp 99.0 F 09/02/21 12:35 Pulse 87 09/02/21 12:35 Resp 20 09/02/21 12:35 BP 124/70 09/02/21 12:35 Pulse Ox 91 L 09/02/21 12:35 Intake & Output 09/01/21 09/02/21 09/02/21 18:59 06:59 18:59 Intake Total 900 900 Output Total 120 Balance 900 780 Weight 82.554 kg Intake: IV 900 900 Sodium Chloride 0.9% 1, 900 900 000 ml @ 75 mls/hr IV . [id number] [facility] Rx#:[id number] Output: Urine 120 Stool 0 Other: Voiding Method Toilet Urinal Toilet Urinal # Voids 2 1 # Bowel Movements 0 - Exam - Exam General: Alert and oriented 3, no acute distress HEENT: normocephalic and atraumatic. NG tube present. Neck:supple no JVD Chest: CTA bilaterally, bilateral bases diminished. Cardiac exam reveals regular heart sounds S1 and S2 no gallops no murmurs Abdomen is soft, status post surgery, nondistended. Generalized tenderness, wearing binder. Extremities: no edema, cyanosis or clubbing. Neurologic: CN II through XII grossly intact, no focal deficits - Labs CBC & Chem 7: 09/02/21 09:07 08/31/21 09:09 Labs: Abnormal Lab Results - Last 24 Hours (Table) 09/02/21 Range/Units 09:07 MCV 102.2 H (80.0-100.0) fL Lymphocytes # 0.7 L (1.0-4.8) k/uL Assessment and Plan Assessment: Small bowel obstruction secondary to internal hernia, status post exploratory laparotomy, lysis of adhesions and repair Acute hypoxic respiratory failure, pre-and postop secondary to suspected atelectasis, extensive nicotine dependence with suspected COPD. possible early right medial lung base pneumonia per chest x-ray. Hyperlipidemia Ongoing nicotine dependence Plan: Continue on current medication regime ,monitoring and symptomatic treatment. Empiric Rocephin for possible early pneumonia. Aggressive pulmonary toileting with incentive spirometer reinforced. Increase ambulation as tolerated. Maintain nebulized bronchodilators, Symbicort, IV fluids. Maintain clear liquid diet as per surgery. Pain management. The impression and plan of care has been dictated as directed. : I performed a history and examination of this patient, discussed the same with the dictator. I agree with the dictator's note ,documented as a scribe. Any additional findings or plans will be noted.
[2021-09-02] MEDS: METOCLOPRAMIDE 5 MG/ML 2 ML VIAL IVP PRN (15:52)
--- NOTE | 2021-09-02 17:22 | XR ---
EXAMINATION TYPE: XR abdomen 1V DATE OF EXAM: 09/02/2021 COMPARISON: 08/28/2021 HISTORY: NG tube placement TECHNIQUE: FINDINGS: There is nasogastric tube with the tip over the gastric fundus. There is some mild atelecta sis and infiltrate at the lung bases. There are skin lauryn over the lower abdomen. There is apparen t air under the right hemidiaphragm consistent with pneumoperitoneum in this patient with recent surg cierra. IMPRESSION: NG tube is in the stomach at the gastric fundus.
[2021-09-02] MEDS: HYDROmorphone 0.5 MG/0.5 ML SYRINGE IVP PRN (21:02)
[2021-09-03] MEDS: LACTATED RINGERS 1,000 ML IV SCH (01:20)
[2021-09-03] MEDS: HYDROmorphone 1 MG/ML 1 ML SYRINGE IVP PRN ×5 (01:22→23:14)
[2021-09-03] MEDS: SODIUM CHLORIDE 0.9% 1,000 ML IV SCH ×2 (01:25→14:42)
[2021-09-03] MEDS: METOCLOPRAMIDE 5 MG/ML 2 ML VIAL IVP PRN (05:35)
[2021-09-03] MEDS: PANTOPRAZOLE 40 MG/10 ML VIAL IVP SCH (08:57)
[2021-09-03] MEDS: ENOXAPARIN 40 MG/0.4 ML SYRINGE SQ SCH (08:58)
[2021-09-03] MEDS: SYMBICORT 80-4.5 MCG INHALER INHALATION SCH ×2 (09:09→20:02)
[2021-09-03] MEDS: IPRATROPIUM-ALBUTEROL 3 ML NEB INHALATION SCH ×4 (09:09→20:02)
[2021-09-03 12:59] LABS: African American GFR (CKD) 117.8 (60.0-200.0); BUN/Creat Ratio 13.36 Ratio (12.00-20.00); Blood Urea Nitrogen 9.9 mg/dL (9.0-27.0); Calcium 8.2 mg/dL (8.7-10.3); Non-African American GFR(CKD) 101.7 (60.0-200.0); Potassium 3.8 mmol/L (3.5-5.5)
[2021-09-03] MEDS ORDERED: Magnesium Replacement Protocol 1 EACH MISC MISCELLANE PRN (13:07)
[2021-09-03] MEDS ORDERED: Potassium Replacement Protocol 1 EACH MISC MISCELLANE PRN (13:07)
--- NOTE | 2021-09-03 13:10 | P.PN ---
Subjective Progress Note Date: 09/03/21 This is a 56-year-old gentleman admitted with small bowel obstruction secondary to internal hernia status post exploratory laparotomy, lysis of adhesions and repair. Tolerated procedure well. Maintained on IV fluid hydration. Complains of gas discomfort, pain controlled. Reports no flatus. Afebrile, normal WBC. Hemoglobin 14.9, platelets 218. Electrolytes and renal function stable. 09/01/2021 NG tube discontinued yesterday, clear liquid diet ordered for lunchtime. Ambulating, tolerating exertion well. Denies lightheadedness dizziness or focal deficits. Denies chest pain, palpitations or shortness of breath. Denies nausea vomiting or diarrhea. Denies flatus or bowel movement. T-max 99.4. Maintaining O2 sats in the high 90s on 3 L nasal cannula. 09/02/2021 currently complaining of increased nausea on clear liquid diet. Complains of bloating sensation. Denies passing flatus, denies bowel movement. Chest x-ray completed yesterday afternoon reporting evidence of pneumoperitoneum , basilar linear atelectasis with mild patchy density right medial lung base which could reflect developing infiltrate. Denies cough. Currently maintaining O2 sats of mid 90s on room air. T-max 99.7, normal WBC. Hemoglobin 14.6, platelets 262. Reports he ambulated 3 times in the hallway yesterday, tolerated exertion well.denies chest pain, palpitations .denies lightheadedness,dizziness or focal deficits. 09/03/2021 Patient is evaluated today with his at the bedside. He does complain of some abdominal tightness. He states that he is not passing gas. He has not NG tube reinserted yesterday to suction. There has been 2.5 L of output bile in color since the reinsertion. is concerned that patient has not had any oral intake since the . We did discuss the possibility of parenteral nutrition. Patient will need a PICC line for this. RN did discuss with the surgical team as well who will reevaluate the patient today for nutritional needs. ROS Constitutional: Denied any fatigue denied any fever. Cardio vascular: denied any chest pain, palpitations Gastrointestinal denied any nausea vomiting, denies diarrhea. Reports abdominal pain. Pulmonary: Denied any shortness of breath cough Neurologic denied any new focal deficits All inpatient medications were reviewed and appropriate changes in these medications as dictated in the interval history and assessment and plan. Objective - Vital Signs Vital signs: Vital Signs Temp 98.9 F 09/03/21 03:24 Pulse 93 09/03/21 03:24 Resp 18 09/03/21 03:24 BP 130/71 09/03/21 03:24 Pulse Ox 93 L 09/03/21 03:24 Intake & Output 09/02/21 09/03/21 09/03/21 18:59 06:59 18:59 Intake Total 900 900 Output Total 600 1000 200 Balance 300 -100 -200 Weight 82.554 kg Intake: IV 900 900 Sodium Chloride 0.9% 1, 900 900 000 ml @ 75 mls/hr IV . [id number] [facility] Rx#:[id number] Output: Gastric Drainage 600 1000 Urine 200 Stool 0 Other: Voiding Method Toilet Urinal Urinal # Voids 2 - Labs CBC & Chem 7: 09/02/21 09:07 09/03/21 07:23 Assessment and Plan Assessment: -Small bowel obstruction secondary to internal hernia -POD #3 exploratory laparotomy, lysis of adhesions and herna repair -Acute hypoxic respiratory failure, pre-and postop secondary to suspected atele ctasis, extensive nicotine dependence with suspected COPD. possible early right medial lung base pneumonia per chest x-ray. -Hyperlipidemia -Ongoing nicotine dependence -Hypomagnesemia -Hypokalemia Plan: Plan: Continue on current medication regime ,monitoring and symptomatic treatment. Empiric Rocephin for possible early pneumonia. Aggressive pulmonary toileting with incentive spirometer reinforced. Increase ambulation as tolerated. Maintain nebulized bronchodilators, Symbicort, IV fluids. Maintain clear liquid diet as per surgery. Pain management. -Continue NG tube per surgical recommendations Discuss with primary team possibility of TPN as patient has not had any oral intake since 08/28/2021 -Replace electrolytes -GI prophylaxis Protonix DVT prophylaxis Lovenox Full Code Time with Patient: Greater than 30
[2021-09-03] MEDS: MAGNESIUM SULFATE-D5W PMX 1 GM in DEXTROSE/WATER 1 100ML.BAG IVPB SCH ×2 (13:26→15:02)
[2021-09-03] MEDS: ONDANSETRON 4 MG/2 ML VIAL IVP PRN (13:42)
--- NOTE | 2021-09-03 16:11 | P.PN ---
Subjective Progress Note Date: 09/03/21 CHIEF COMPLAINT: Small bowel obstruction HISTORY OF PRESENT ILLNESS: The patient is a 56-year-old male status post exploratory laparotomy with lysis of adhesions, 08/30/2021. His is at bedside. No flatus. No bowel movements. He has not passed flatus. He ambulated yesterday, but not today. Family wants TPN for nutrition. He reports, "I think I might pass gas today." ROS: No fevers or chills. No new chest pain. No productive sputum PHYSICAL EXAM: VITAL SIGNS: Reviewed CONSTITUTIONAL: Well developed and in no acute distress. EYES: Conjuctivae without sclera icterus. Extraocular movements grossly intact. HEAD, EARS, NOSE, THROAT: Moist buccal mucosa. Head is atraumatic, normocep halic. Hears conversational speech. No nasal drainage. NECK: No gross thyroidomegaly. No jugular venous distention. RESPIRATORY: Non-labored respirations and equal bilateral excursions. CARDIOVASCULAR: Regular rate. Regular rhythm. ABDOMEN: Surgical dressing intact. MUSCULOSKELETAL: No clubbing. No cyanosis. SKIN: Good skin turgor. Well perfused. NEUROLOGIC: Cranial nerves II through XII grossly intact. No focal or lateralizing signs. PSYCH: Appropriate affect. Alert and oriented to person, place and time. CLINICAL LABS: Reviewed. WBC 4.6 and normal. Hemoglobin 14.6 and normal ASSESSMENT: 1. Small bowel obstruction due to internal hernia PLAN: 1. Antiemetics for nausea 2. Ice chips and popsicles 3. Trial Entereg for ileus 4. Simethicone for gas. 5. Objective - Vital Signs Vital signs: Vital Signs Temp 98.1 F 09/03/21 12:46 Pulse 92 09/03/21 12:50 Resp 16 09/03/21 12:46 BP 125/77 09/03/21 12:46 Pulse Ox 97 09/03/21 12:46 Intake & Output 09/02/21 09/03/21 09/03/21 18:59 06:59 18:59 Intake Total 900 900 Output Total 600 1000 200 Balance 300 -100 -200 Weight 82.554 kg Intake: IV 900 900 Sodium Chloride 0.9% 1, 900 900 000 ml @ 75 mls/hr IV . [id number] [facility] Rx#:[id number] Output: Gastric Drainage 600 1000 Urine 200 Stool 0 Other: Voiding Method Toilet Urinal Urinal # Voids 2 - Labs CBC & Chem 7: 09/02/21 09:07 09/03/21 07:23 Labs: Abnormal Lab Results - Last 24 Hours (Table) 09/03/21 Range/Units 07:23 Anion Gap 13.00 H (4.00-12.00) mmol/L Calcium 8.2 L (8.7-10.3) mg/dL Assessment and Plan (1) SBO (small bowel obstruction) Current Visit: Yes Status: Acute Code(s): K56.609 - UNSP INTESTNL OBST, UNSP TO PARTIAL VERSUS COMPLETE OBST SNOMED Code(s): 657797088
[2021-09-03] MEDS: POTASSIUM CHLORIDE 10 MEQ in WATER FOR INJECTION 1 100ML.BAG IVPB SCH ×2 (16:51→19:12)
[2021-09-03] MEDS: SIMETHICONE 40 MG/0.6 ML DROPS 2,000 MG/30 ML BOTTLE PO SCH ×2 (17:59→21:08)
[2021-09-03] MEDS: ALVIMOPAN 12 MG CAPSULE PO SCH (20:48)
[2021-09-04] MEDS: LACTATED RINGERS 1,000 ML IV SCH (00:26)
[2021-09-04] MEDS: SODIUM CHLORIDE 0.9% 1,000 ML IV SCH ×2 (00:28→13:25)
[2021-09-04] MEDS: IPRATROPIUM-ALBUTEROL 3 ML NEB INHALATION SCH ×4 (09:06→20:15)
[2021-09-04] MEDS: SYMBICORT 80-4.5 MCG INHALER INHALATION SCH ×2 (09:06→20:15)
[2021-09-04] MEDS: PANTOPRAZOLE 40 MG/10 ML VIAL IVP SCH (09:19)
[2021-09-04] MEDS: ALVIMOPAN 12 MG CAPSULE PO SCH (09:19)
[2021-09-04] MEDS: ENOXAPARIN 40 MG/0.4 ML SYRINGE SQ SCH (09:19)
[2021-09-04] MEDS: SIMETHICONE 40 MG/0.6 ML DROPS 2,000 MG/30 ML BOTTLE PO SCH ×4 (09:20→21:15)
--- NOTE | 2021-09-04 11:53 | P.PN ---
Subjective Progress Note Date: 09/04/21 This is a 56-year-old gentleman admitted with small bowel obstruction secondary to internal hernia status post exploratory laparotomy, lysis of adhesions and repair. Tolerated procedure well. Maintained on IV fluid hydration. Complains of gas discomfort, pain controlled. Reports no flatus. Afebrile, normal WBC. Hemoglobin 14.9, platelets 218. Electrolytes and renal function stable. 09/01/2021 NG tube discontinued yesterday, clear liquid diet ordered for lunchtime. Ambulating, tolerating exertion well. Denies lightheadedness dizziness or focal deficits. Denies chest pain, palpitations or shortness of breath. Denies nausea vomiting or diarrhea. Denies flatus or bowel movement. T-max 99.4. Maintaining O2 sats in the high 90s on 3 L nasal cannula. 09/02/2021 currently complaining of increased nausea on clear liquid diet. Complains of bloating sensation. Denies passing flatus, denies bowel movement. Chest x-ray completed yesterday afternoon reporting evidence of pneumoperitoneum , basilar linear atelectasis with mild patchy density right medial lung base which could reflect developing infiltrate. Denies cough. Currently maintaining O2 sats of mid 90s on room air. T-max 99.7, normal WBC. Hemoglobin 14.6, platelets 262. Reports he ambulated 3 times in the hallway yesterday, tolerated exertion well.denies chest pain, palpitations .denies lightheadedness,dizziness or focal deficits. 09/03/2021 Patient is evaluated today with his at the bedside. He does complain of some abdominal tightness. He states that he is not passing gas. He has not NG tube reinserted yesterday to suction. There has been 2.5 L of output bile in color since the reinsertion. is concerned that patient has not had any oral intake since the . We did discuss the possibility of parenteral nutrition. Patient will need a PICC line for this. RN did discuss with the surgical team as well who will reevaluate the patient today for nutritional needs. 09/04/2021 Patient is evaluated today because of the bedside. He did have a large bowel movement yesterday evening as well as 3 this morning. He denies any blood in the stool. He is passing gas. He took his NG tube out and does not want reinserted. He states that his abdominal pain is improving. He will like to eat something today. His did bring some clear liquid options that the patient would like to try. We will discuss this with the surgical team for clearance. Otherwise his vitals are stable, afebrile. Continue ambulation. Continue to encourage IS ROS Constitutional: Denied any fatigue denied any fever. Cardio vascular: denied any chest pain, palpitations Gastrointestinal denied any nausea vomiting, denies diarrhea. Reports abdominal pain. Reports BM. Reports passing gas. Pulmonary: Denied any shortness of breath cough Neurologic denied any new focal deficits All inpatient medications were reviewed and appropriate changes in these medications as dictated in the interval history and assessment and plan. Objective - Vital Signs Vital signs: Vital Signs Temp 99.2 F 09/04/21 03:53 Pulse 99 09/04/21 03:53 Resp 18 09/04/21 03:53 BP 139/82 09/04/21 03:53 Pulse Ox 95 09/04/21 03:53 Intake & Output 09/03/21 09/04/21 09/04/21 18:59 06:59 18:59 Intake Total 900 100 Output Total 1100 0 Balance -200 100 Intake: IV 900 Sodium Chloride 0.9% 1, 900 000 ml @ 75 mls/hr IV . [id number] [facility] Rx#:[id number] Intake, IV Titration 100 Amount Potassium Chloride 10 meq 100 In Water For Injection 1 100ml.bag @ 100 mls/hr IVPB Q1H [facility] Rx#: [id number] Output: Gastric Drainage 900 Urine 200 Stool 0 Other: Voiding Method Urinal # Voids 1 2 # Bowel Movements 2 - Exam PHYSICAL EXAMINATION: GENERAL: The patient is alert and oriented x3, not in any acute distress. Well developed, well nourished. HEENT: Pupils are round and equally reacting to light. EOMI. No scleral icterus. No conjunctival pallor. Normocephalic, atraumatic. No pharyngeal erythema. No thyromegaly. CARDIOVASCULAR: S1 and S2 present. No murmurs, rubs, or gallops. PULMONARY: Chest is clear to auscultation, no wheezing or crackles. ABDOMEN: Soft, tender, nondistended, normoactive bowel sounds. No palpable organomegaly. MUSCULOSKELETAL: No joint swelling or deformity. EXTREMITIES: No cyanosis, clubbing, or pedal edema. NEUROLOGICAL: Gross neurological examination did not reveal any focal deficits. SKIN: No rashes. - Labs CBC & Chem 7: 09/02/21 09:07 09/03/21 07:23 Labs: Abnormal Lab Results - Last 24 Hours (Table) 09/03/21 Range/Units 07:23 Anion Gap 13.00 H (4.00-12.00) mmol/L Calcium 8.2 L (8.7-10.3) mg/dL Assessment and Plan Assessment: -Small bowel obstruction secondary to internal hernia -POD #4 exploratory laparotomy, lysis of adhesions and herna repair -Acute hypoxic respiratory failure, pre-and postop secondary to suspected atelectasis, extensive nicotine dependence with suspected COPD. possible early right medial lung base pneumonia per chest x-ray. encourage IS, lungs are clear -Hyperlipidemia -Ongoing nicotine dependence -Hypomagnesemia, repleted -Hypokalemia Plan: Plan: Continue on current medication regime ,monitoring and symptomatic treatment. Empiric Rocephin for possible early pneumonia. Aggressive pulmonary toileting with incentive spirometer reinforced. Increase ambulation as tolerated. Maintain nebulized bronchodilators, Symbicort, IV fluids. Pain management. -NGT discontinued by patient after multiple BMs. Discuss with primary team possibility of TPN as patient has not had any oral intake since 08/28/2021 -Patient would like to try clear liquids today, pending surgical clearance -Replace electrolytes -GI prophylaxis Protonix DVT prophylaxis Lovenox Full Code Time with Patient: Greater than 30
--- NOTE | 2021-09-04 14:51 | P.PN ---
Subjective Progress Note Date: 09/04/21 CHIEF COMPLAINT: Small bowel obstruction HISTORY OF PRESENT ILLNESS: The patient is a 56-year-old male status post exploratory laparotomy with lysis of adhesions, 08/30/2021. His is at bedside. He passed moderate flatness including bowel movements. His abdominal distention is resolved. His NG tube had fell out from earlier this morning. Exam bleeding. He feels well. ROS: No fevers or chills. No new chest pain. No productive sputum PHYSICAL EXAM: VITAL SIGNS: Reviewed CONSTITUTIONAL: Well developed and in no acute distress. EYES: Conjuctivae without sclera icterus. Extraocular movements grossly intact. HEAD, EARS, NOSE, THROAT: Moist buccal mucosa. Head is atraumatic, nor mocephalic. Hears conversational speech. No nasal drainage. NECK: No gross thyroidomegaly. No jugular venous distention. RESPIRATORY: Non-labored respirations and equal bilateral excursions. CARDIOVASCULAR: Regular rate. Regular rhythm. ABDOMEN: Surgical dressing intact. MUSCULOSKELETAL: No clubbing. No cyanosis. SKIN: Good skin turgor. Well perfused. NEUROLOGIC: Cranial nerves II through XII grossly intact. No focal or lateralizing signs. PSYCH: Appropriate affect. Alert and oriented to person, place and time. CLINICAL LABS: Reviewed. Magnesium normal 2.0. ASSESSMENT: 1. Small bowel obstruction due to internal hernia PLAN: 1. May start clear liquid diet. 2. Ambulation encouraged. Objective - Vital Signs Vital signs: Vital Signs Temp 99 F 09/04/21 13:00 Pulse 81 09/04/21 13:00 Resp 18 09/04/21 03:53 BP 126/71 09/04/21 13:00 Pulse Ox 91 L 09/04/21 13:00 Intake & Output 09/03/21 09/04/21 09/04/21 18:59 06:59 18:59 Intake Total 900 100 Output Total 1100 0 Balance -200 100 Intake: IV 900 Sodium Chloride 0.9% 1, 900 000 ml @ 75 mls/hr IV . [id number] [facility] Rx#:[id number] Intake, IV Titration 100 Amount Potassium Chloride 10 meq 100 In Water For Injection 1 100ml.bag @ 100 mls/hr IVPB Q1H [facility] Rx#: [id number] Output: Gastric Drainage 900 Urine 200 Stool 0 Other: Voiding Method Urinal # Voids 1 2 # Bowel Movements 2 - Labs CBC & Chem 7: 09/02/21 09:07 09/03/21 07:23 Assessment and Plan (1) SBO (small bowel obstruction) Current Visit: Yes Status: Acute Code(s): K56.609 - UNSP INTESTNL OBST, UNSP TO PARTIAL VERSUS COMPLETE OBST SNOMED Code(s): 605030869
[2021-09-05] MEDS: SODIUM CHLORIDE 0.9% 1,000 ML IV SCH (03:40)
[2021-09-05] MEDS: LACTATED RINGERS 1,000 ML IV SCH (05:26)
[2021-09-05] MEDS: IPRATROPIUM-ALBUTEROL 3 ML NEB INHALATION SCH ×3 (08:35→15:03)
[2021-09-05] MEDS: SYMBICORT 80-4.5 MCG INHALER INHALATION SCH (08:35)
[2021-09-05] MEDS: PANTOPRAZOLE 40 MG/10 ML VIAL IVP SCH (09:31)
[2021-09-05] MEDS: ENOXAPARIN 40 MG/0.4 ML SYRINGE SQ SCH ×2 (09:32→10:05)
[2021-09-05] MEDS: SIMETHICONE 40 MG/0.6 ML DROPS 2,000 MG/30 ML BOTTLE PO SCH ×2 (10:05→13:12)
[2021-09-05 13:22] VITALS: BP 127/84; PULSE 72; RESP 18; TEMP 98.3
--- NOTE | 2021-09-05 14:00 | P.DS ---
Providers Date of admission: 08/28/21 10:01 Expected date of discharge: 09/05/21 Attending physician: Yon Laguna Consults: 08/29/21 15:43 Consult Physician Routine Consulting Provider: Luke Chen Consult Reason/Comments: medical management Do you want consulting provider notified?: Yes Primary care physician: Kimberley Vieira Hospital Course: Discharge diagnosis 1. Small bowel section secondary to internal hernia status post exploratory laparotomy, lysis of adhesions and repair of internal hernia Hospital course This is a 56-year-old male presents to the hospital with complaints of abdominal pain for 2 days. He complains mostly of a diffuse abdominal pain. He reports being more distended when he presented to the hospital. He had an episode of vomiting on Sunday. His last bowel movement was small and on Sunday. He reports that since Sunday he has had no further bowel movements and no flatus. Patient's CAT scan showed evidence of small bowel obstruction he had NG tube placed. He reports improvement in his abdominal distention and pain since placement of NG tube. Patient is status post exploratory laparotomy, lysis of adhesions and repair of internal hernia. Patient did require NG tube placement over the weekend. He started having bowel movements and flatus. NG tube removed. He started on a clear liquid diet and has been advanced to full's. Patient reports abdominal pain and distention has improved. He is tolerating diet. He is having bowel movements. He is afebrile. He has been up and ambulating. She isn't site is clean dry and intact. He is stable for discharge. Please refer to chart for any further details. Physician Surgery Attendant note has been reviewed by physician. Signing provider agrees with the documented findings, assessment, and plan of care. Patient Condition at Discharge: Stable Plan - Discharge Summary Discharge Rx Participant: Yes New Discharge Prescriptions: New HYDROcodone/APAP 5-325MG [Imbler 5-325] 1 tab PO Q6HR PRN 3 Days #12 tab PRN Reason: Pain Continue Ezetimibe [Zetia] 10 mg PO DAILY Ubidecarenone [Co Q-10] 200 mg PO DAILY Atorvastatin [Lipitor] 20 mg PO Multivitamins, Thera [Multivitamin (formulary)] 1 tab PO DAILY Discharge Medication List Atorvastatin [Lipitor] 20 mg PO TUFR 12/27/18 [History] Ezetimibe [Zetia] 10 mg PO DAILY 12/27/18 [History] Multivitamins, Thera [Multivitamin (formulary)] 1 tab PO DAILY 12/27/18 [History] Ubidecarenone [Co Q-10] 200 mg PO DAILY 12/27/18 [History] HYDROcodone/APAP 5-325MG [Imbler 5-325] 1 tab PO Q6HR PRN 3 Days #12 tab 09/05/21 [Rx] Follow up Appointment(s)/Referral(s): Kimberley Vieira DO [Primary Care Provider] - 1-2 days Yon Laguna MD [STAFF PHYSICIAN] - 1 Week Patient Instructions/Handouts: Diverticulosis (DC), Diverticulitis Diet (DC) Activity/Diet/Wound Care/Special Instructions: No driving while taking Imbler No lifting over 10 pounds You may shower. No soaking or tub baths for 2 weeks Very light activity until you are reevaluated at your follow up appointment with your surgeon Discharge Disposition: HOME SELF-CARE
--- NOTE | 2021-09-05 15:20 | P.PN ---
Subjective Progress Note Date: 09/05/21 This is a 56-year-old gentleman admitted with small bowel obstruction secondary to internal hernia status post exploratory laparotomy, lysis of adhesions and repair. Tolerated procedure well. Maintained on IV fluid hydration. Complains of gas discomfort, pain controlled. Reports no flatus. Afebrile, normal WBC. Hemoglobin 14.9, platelets 218. Electrolytes and renal function stable. 09/01/2021 NG tube discontinued yesterday, clear liquid diet ordered for lunchtime. Ambulating, tolerating exertion well. Denies lightheadedness dizziness or focal deficits. Denies chest pain, palpitations or shortness of breath. Denies nausea vomiting or diarrhea. Denies flatus or bowel movement. T-max 99.4. Maintaining O2 sats in the high 90s on 3 L nasal cannula. 09/02/2021 currently complaining of increased nausea on clear liquid diet. Complains of bloating sensation. Denies passing flatus, denies bowel movement. Chest x-ray completed yesterday afternoon reporting evidence of pneumoperitoneum , basilar linear atelectasis with mild patchy density right medial lung base which could reflect developing infiltrate. Denies cough. Currently maintaining O2 sats of mid 90s on room air. T-max 99.7, normal WBC. Hemoglobin 14.6, platelets 262. Reports he ambulated 3 times in the hallway yesterday, tolerated exertion well.denies chest pain, palpitations .denies lightheadedness,dizziness or focal deficits. 09/05/21 tolerating clear liquid diet,positive bowel movement, passing flatus. Decreased diffuse abdominal pain.currently afebrile, T-max 99.2. labs pending.maintaining O2 sats 92-97% on room air.denies chest pain, palpitations or increased shortness of breath. Objective - Vital Signs Vital signs: Vital Signs Temp 98.3 F 09/05/21 13:00 Pulse 72 09/05/21 13:00 Resp 18 09/05/21 13:00 BP 127/84 09/05/21 13:00 Pulse Ox 97 09/05/21 13:00 Intake & Output 09/04/21 09/05/21 09/05/21 18:59 06:59 18:59 Intake Total 900 Balance 900 Weight 82.554 kg Intake: IV 900 Sodium Chloride 0.9% 1, 900 000 ml @ 75 mls/hr IV . [id number] KATHY Rx#:[id number] Other: Voiding Method Toilet Urinal - Exam - Exam General: Alert and oriented 3, no acute distress HEENT: normocephalic and atraumatic. oral mucosa moist Neck:supple no JVD Chest: CTA bilaterally, bilateral bases diminished. Cardiac exam reveals regular heart sounds S1 and S2 no gallops no murmurs Abdomen is soft, status post surgery, nondistended. decreased generalized tenderness, wearing binder. Extremities: no edema, cyanosis or clubbing. Neurologic: CN II through XII grossly intact, no focal deficits - Labs CBC & Chem 7: 09/02/21 09:07 09/03/21 07:23 Assessment and Plan Assessment: Small bowel obstruction secondary to internal hernia, status post exploratory laparotomy, lysis of adhesions and repair Acute hypoxic respiratory failure, pre-and postop secondary to suspected atelectasis, extensive nicotine dependence with suspected COPD. possible early right medial lung base pneumonia per chest x-ray. Hyperlipidemia Ongoing nicotine dependence Plan: Continue on current medication regime ,monitoring and symptomatic treatment. pain management as per primary. discharge planning in progress as per primary/surgery. Ceftin at DC for possible early pneumonia. Maintain Aggressive pulmonary toileting, continue incentive spirometer. nicotine cessation reinforced. follow-up with PCP Dr. Luke Salas in 1 week. The impression and plan of care has been dictated as directed. : I performed a history and examination of this patient, discussed the same with the dictator. I agree with the dictator's note ,documented as a scribe. Any additional findings or plans will be noted.
== END 2021-09-05 16:03 | disposition home or self-care (01) | DRG 335 ==
LOC: EC 07:46 → 5NMEDONC 10:01 → 1SOBS 08-29 10:39 → 5NMEDONC 08-30 18:24
PROVIDERS: ADMIT Surgery; ATTEND Surgery
PROC: 0DN80ZZ Release Small Intestine, Open Approach (ICD-10-PCS; principal; 2021-08-28)
PROC: 0DQV0ZZ Repair Mesentery, Open Approach (ICD-10-PCS; 2021-08-28)
PROC: 0D9670Z Drainage of Stomach with Drainage Device, Via Natural or Artificial Opening (ICD-10-PCS; 2021-08-28)
DX: K56.50 Intestinal adhesions [bands], unspecified as to partial versus complete obstruction (principal); J96.01 Acute respiratory failure with hypoxia; J18.9 Pneumonia, unspecified organism; K46.0 Unspecified abdominal hernia with obstruction, without gangrene; E78.5 Hyperlipidemia, unspecified; F17.200 Nicotine dependence, unspecified, uncomplicated; Z20.822 Contact with and (suspected) exposure to COVID-19; E87.6 Hypokalemia; E83.42 Hypomagnesemia; Z79.899 Other long term (current) drug therapy; Z82.5 Family history of asthma and other chronic lower respiratory diseases; Z71.6 Tobacco abuse counseling
CPT/HCPCS: 36415; 71045; 71046; 74018; 74177; 80048; 80053; 81001; 83605; 83690; 83735; 85025; 87635; 94640; 94760; 96361; 96365; 96375; 99285

== ENCOUNTER → 2024-04-28 | Outpatient (CLI) | payer BC, OTHER ==
--- NOTE | 2024-04-28 09:50 | CTL ---
EXAMINATION TYPE: CT Low Dose Lung DATE OF EXAM: 04/28/2024 9:25 AM CLINICAL INDICATION:Male, 59 years old with history of Z12.2 LUNG CA SCR F17.210 CURRENT SMOKER; H/O TOBACCO USE X43 YEARS 1PPD , history of tobacco use. COMPARISON: None TECHNIQUE: Multiple axial non-contrast scans were obtained from approximately the lung apices through the upper abdomen. Coronal and sagittal reformatted images were obtained. Low dose technique was uti lized. CT DLP: 73.1 mGycm, Automated exposure control for dose reduction was used. CT Contrast: Contrast used: None Oral contrast used: None FINDINGS: ======== Lack of intravenous contrast and low dose technique limits the evaluation of the vascular and soft ti ssue structures. LUNGS: No evidence of pulmonary fibrosis. No evidence of focal consolidation, pneumothorax or pleural effusion. Centrilobular emphysema changes. Nodules: RUL: None. RML: None. RLL: None. ABRAHAM: None. LLL: None. AIRWAY: Patent and unremarkable. HEART: Size within normal limits. MEDIASTINUM: No gross evidence of adenopathy. VASCULATURE: No aortic aneurysm. MUSCULOSKELETAL: No acute osseous abnormalities SOFT TISSUES/LYMPH NODES: Unremarkable. LOWER NECK: No significant findings. UPPER ABDOMEN: No significant findings. IMPRESSION: 1. No clinically significant pulmonary nodules. 2. Moderate emphysema. CT LUNG RAD AND CT CHEST RECOMMENDATION: Lung-Rad 1 Negative: Continue annual screening with LDCT in 12 months. S Modifier (other clinically significant findings): None Recommend smoking cessation (if current smoker), or continuation of smoking cessation (if prior smoke r). Annual screening for lung cancer with low-dose computed tomography is recommended in adults ages 55 to 77 years who have a 30 pack-year smoking history and currently smoke or have quit within the pa st 15 years. Screening should be discontinued once a person has not smoked for 15 years or develops a health problem that substantially limits life expectancy or the ability or willingness to have curat marciano lung surgery. Lung rads 2021 [email or web address]
== END | disposition home or self-care (01) ==
LOC: RADCTMAIN 08:51
PROVIDERS: ATTEND Family Medicine
DX: Z12.2 Encounter for screening for malignant neoplasm of respiratory organs (principal); J43.2 Centrilobular emphysema; F17.210 Nicotine dependence, cigarettes, uncomplicated
CPT/HCPCS: 71271